=== PATIENT | female | born 1970 | race African-American/Black ===

== ENCOUNTER → 2016-08-25 | Outpatient (CLI) | payer MEDICARE ==
--- NOTE | 2016-08-25 20:47 | CT ---
EXAMINATION TYPE: CT abdomen pelvis w con DATE OF EXAM: 08/25/2016 COMPARISON: NONE HISTORY: Ventral hernia x [address] DLP: 721.80 mGycm Automated exposure control for dose reduction was used. TECHNIQUE: Helical acquisition of images was performed from the lung bases through the pelvis. CONTRAST: Performed with Oral Contrast and with IV Contrast, patient injected with 100 mL of Omnipaque 300. FINDINGS: Lung bases are clear. There is no pleural effusion. There are small cysts in the left and right lobe of the liver that measure 1.5 cm. Bile ducts are not dilated. Spleen appears normal. There is no panc reatic mass. Gallbladder appears normal. There is no adrenal mass. Kidneys show satisfactory contrast opacification. There is no hydronephrosi s. There is no retroperitoneal adenopathy. There is lobulated fluid density at the umbilicus with a few vessels. The largest measures 3 cm. There is a large midline pelvic mass which shows heterogeneous apparent enhancement. This measures 17 x 9 cm x 15 cm. This appears to relate to a large exophytic fibroid on the uterine fundus. The bladd er distends smoothly. I see no intestinal wall thickening. There are no dilated loops. There are multiple varices in the pe lvis. I do not see any definite varices at the gastroesophageal junction. I see no bony destructive p rocess. IMPRESSION: SMALL HEPATIC CYSTS. SMALL UMBILICAL VARICES. THERE ARE MULTIPLE SUBCUTANEOUS PERIUMBILICAL CYSTIC FLUID COLLECTIONS THAT COULD BE DUE TO POST SURGICAL SEROMA OR HEMATOMA IN THIS PATIENT WITH VENTRAL HERNIA SURGERY 6 MONTHS AGO. VERY LARGE MIDLINE PELVIC MASS COULD RELATE TO LARGE UTERINE FIBROID. THE POSSIBILITY OF A OVARIAN SA RCOMA OR OVARIAN TUMOR CANNOT BE EXCLUDED. MULTIPLE PELVIC VARICES.
== END | disposition home or self-care (01) ==
LOC: RADCTMAIN 18:15
PROVIDERS: ATTEND Surgery
DX: I86.2 Pelvic varices (principal); K76.89 Other specified diseases of liver; K43.9 Ventral hernia without obstruction or gangrene
CPT/HCPCS: 74177; Q9967

== ENCOUNTER → 2016-11-07 | Outpatient (CLI) | payer MEDICARE ==
--- NOTE | 2016-11-08 10:55 | MM ---
Reason for exam: screening (asymptomatic). Last mammogram was performed 1 year and 3 months ago. History: Family history of breast cancer in mother at age 40. Physical Findings: A clinical breast exam by your physician is recommended on an annual basis and results should be correlated with mammographic findings. MG 3D Screening Mammo W/Cad Bilateral CC and MLO view(s) were taken. Prior study comparison: August 20, 2015, bilateral MG 3d screening mammo w/cad. July 31, 2014, bilateral MG screening mammo w CAD. The breast tissue is heterogeneously dense. This may lower the sensitivity of mammography. No significant changes when compared with prior studies. ASSESSMENT: Benign, BI-RAD 2 RECOMMENDATION: Routine screening mammogram of both breasts in 1 year.
== END | disposition home or self-care (01) ==
LOC: RADMAMWWP 15:13
PROVIDERS: ATTEND Family Medicine
DX: Z12.31 Encounter for screening mammogram for malignant neoplasm of breast (principal)
CPT/HCPCS: 77063; G0202

== ENCOUNTER 2016-12-29 16:02 | Emergency (ER) | payer MEDICARE ==
[2016-12-29] MEDS ORDERED: HYDROmorphone 1 MG/ML 1 ML SYRINGE IM STA (16:44)
--- NOTE | 2016-12-29 16:45 | ED ---
Recheck HPI - General Chief Complaint: Recheck/Abnormal Lab/Rx Stated Complaint: pain all over/abdominal pain Time Seen by Provider: 12/29/16 16:37 Source: patient, RN notes reviewed Mode of arrival: wheelchair Limitations: no limitations - History of Present Illness Initial Comments: This a 46-year-old female presents emergency Department chief complaint of chronic pain. Patient states she has pain all over and states that the change in weather has made symptoms worse. Patient states she primary has pain from rheumatoid arthritis of her nausea. Patient also pain from her fibroids and hernia. She states that her abdominal issues or not the complaints. States she has severe joint pain diffusely. Patient states is very consistent with her rheumatoid arthritis. 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 Patient is requesting pain medication at this time. Patient states her [place] was not helping. - Related Data Home Medications Medication Instructions Recorded Confirmed Ibuprofen/Diphenhydramine HCl 2 cap PO HS 07/31/14 12/29/16 [Advil Pm Liqui-Gels] Etanercept [Enbrel] 50 mg SQ Q7DAYS 05/04/15 12/29/16 HYDROcodone/APAP 10-325MG [[place] 1 tab PO Q6H PRN 12/29/16 12/29/16 10] predniSONE 20 mg PO BID 12/29/16 12/29/16 Allergies Allergy/AdvReac Type Severity Reaction Status Date / Time Penicillins Allergy Rash/Hives/ Verified 12/29/16 16:23 Dyspnea tramadol Allergy Unknown Verified 12/29/16 16:23 Review of Systems ROS Statement: Those systems with pertinent positive or pertinent negative responses have been documented in the HPI. ROS Other: All systems not noted in ROS Statement are negative. 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 2014 History of Any Multi-Drug Resistant Organisms: None Reported Additional Past Surgical History / Comment(s): COLONOSCOPY, EGD Past Anesthesia/Blood Transfusion Reactions: No Reported Reaction Past Psychological History: Depression Smoking Status: Never smoker Past Alcohol Use History: None Reported Past Drug Use History: None Reported General Exam Limitations: no limitations General appearance: alert, in no apparent distress Head exam: Present: atraumatic, normocephalic, normal inspection Neck exam: Present: normal inspection. Absent: tenderness, meningismus, lymphadenopathy Respiratory exam: Present: normal lung sounds bilaterally. Absent: respiratory distress, wheezes, rales, rhonchi, stridor Cardiovascular Exam: Present: regular rate, normal rhythm, normal heart sounds. Absent: systolic murmur, diastolic murmur, rubs, gallop, clicks GI/Abdominal exam: Present: soft, normal bowel sounds, hernia. Absent: distended, tenderness, guarding, rebound, rigid Extremities exam: Absent: normal inspection (swelling of the joints of the hand , knee region) Back exam: Absent: CVA tenderness (R), CVA tenderness (L) Neurological exam: Present: alert, oriented X3, CN II-XII intact Skin exam: Present: warm, dry, intact, normal color. Absent: rash Course Vital Signs 12/29/16 16:09 Temperature 98.1 F Pulse Rate 85 Respiratory 18 Rate Blood Pressure 115/62 O2 Sat by Pulse 98 Oximetry Medical Decision Making - Medical Decision Making 46-year-old female presented for pain. Patient we given a pain shot at this time advised to follow-up return parameters were discussed. Patient's issues are chronic in nature. Disposition Clinical Impression: Chronic pain Disposition: HOME SELF-CARE Condition: Stable Instructions: Chronic Pain (ED) Additional Instructions: Please return to the Emergency Department if symptoms worsen or any other concerns. Referrals: None,Stated [Primary Care Provider] - 1-2 days Time of Disposition: 16:45
[2016-12-29] MEDS ORDERED: HYDROcodone/APAP 10-325MG 1 EACH TAB PO ONE (17:04)
[2016-12-29] MEDS ORDERED: KETOROLAC 30 MG/ML 1 ML VIAL IM STA (17:05)
[2016-12-29 17:23] VITALS: BP 125/67; PULSE 80; RESP 20; TEMP 98
== END 2016-12-29 17:23 | disposition home or self-care (01) ==
LOC: EC 16:02
DX: G89.29 Other chronic pain (principal); R11.0 Nausea; M79.7 Fibromyalgia; M06.9 Rheumatoid arthritis, unspecified; F32.9 Major depressive disorder, single episode, unspecified; Z79.1 Long term (current) use of non-steroidal anti-inflammatories (NSAID); Z79.52 Long term (current) use of systemic steroids; Z79.899 Other long term (current) drug therapy; Z88.0 Allergy status to penicillin; Z88.6 Allergy status to analgesic agent; Z53.20 Procedure and treatment not carried out because of patient's decision for unspecified reasons
CPT/HCPCS: 99283 ×2; 96372 ×2; J1885

== ENCOUNTER 2018-03-07 11:58 | Emergency (ER) | payer MEDICARE ==
[2018-03-07] MEDS ORDERED: SODIUM CHLORIDE 0.9% 1,000 ML IV STA (12:26)
--- NOTE | 2018-03-07 12:26 | ED ---
General Adult HPI - General Chief complaint: Abdominal Pain Stated complaint: abdominal pain Source: patient, RN notes reviewed, old records reviewed Mode of arrival: ambulatory Limitations: no limitations - History of Present Illness Initial comments: 47-year-old female patient with past medical history including fibromyalgia, rheumatoid arthritis, hysterectomy and hernia repair with Subsequent wound infection in April, pulmonary embolism in 2007 not currently on thinners presents to ED with right lower quadrant abdominal pain. Patient states that she has baseline abdominal pain however this pain is worse, described as a stabbing pain in her right lower quadrant. Patient states this pain has been ongoing for approximately 3 days. Patient denies nausea vomiting diarrhea, chest pain, shortness of breath. Systemic: Pt denies fatigue, myalgia, fever/chills, rash. Pt denies weakness, night sweats, weight loss. Neuro: Pt denies headache, visual disturbances, syncope or pre-syncope. HEENT: Pt denies ocular discharge or irritation, otalgia, rhinorrhea, pharyngitis or notable lymphadenopathy. Cardiopulmonary: Pt denies chest pain, SOB, heart palpitations, dyspnea on exertion. Abdominal/GI: Pt denies n/v/d. : Pt denies dysuria, burning w/ urination, frequency/urgency. Denies new onset urinary or bowel incontinence. MSK: Pt denies myalgia, loss of strength or function in extremities. Neuro: Pt denies new onset weakness, paresthesias. - Related Data Home Medications Medication Instructions Recorded Confirmed Ibuprofen/Diphenhydramine HCl 2 cap PO DAILY PRN 07/31/14 03/07/18 [Advil Pm Liqui-Gels] Etanercept [Enbrel] 50 mg IM WE 05/04/15 03/07/18 predniSONE 20 mg PO BID 12/29/16 03/07/18 Cyclobenzaprine [Flexeril] 10 mg PO BID PRN 03/07/18 03/07/18 Previous Rx's Medication Instructions Recorded HYDROcodone/APAP 10-325MG [[place] 1 tab PO Q6H PRN #10 tab 12/29/16 10-325] Allergies Allergy/AdvReac Type Severity Reaction Status Date / Time Penicillins Allergy Rash/Hives/ Verified 03/07/18 13:32 Dyspnea tramadol Allergy Unknown Verified 03/07/18 13:32 Review of Systems ROS Statement: Those systems with pertinent positive or pertinent negative responses have been documented in the HPI. ROS Other: All systems not noted in ROS Statement are negative. 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 2014 History of Any Multi-Drug Resistant Organisms: None Reported Additional Past Surgical History / Comment(s): COLONOSCOPY, EGD Past Anesthesia/Blood Transfusion Reactions: No Reported Reaction Past Psychological History: Depression Smoking Status: Never smoker Past Alcohol Use History: None Reported Past Drug Use History: None Reported General Exam - General Exam Comments Initial Comments: Constitutional: NAD, AOX3, Pt has pleasant affect. HEENT: NC/AT, trachea midline, neck supple, no lymphadenopathy. Posterior pharynx non erythematous, without exudates. External ears appear normal, without discharge. Mucous membranes moist. Eyes PERRLA, EOM intact. There is no scleral icterus. No pallor noted. Cardiopulmonary: RRR, no murmurs, rubs or gallops, no JVD noted. Lungs CTAB in anterior and posterior narvaez. No peripheral edema. Abdominal exam: Abdomen soft and non-distended. Abdomen tender in right lower quadrant, generalized abdominal tenderness. No guarding or rigidity. Obturator sign negative. Bowel sounds active in LLQ. No hepatosplenomegaly. No ecchymosis Neuro: CN II-XII grossly intact. No nuchal rigidity. MSK: Right posterior calf tenderness, no left posterior calf tenderness homans sign positive bilaterally. Posterior tibialis and radial pulse +2 bilaterally. Sensation intact in upper and lower extremities. Full active ROM in upper and lower extremities, 5/5 stregnth. Limitations: no limitations Course Vital Signs 03/07/18 03/07/18 03/07/18 12:07 13:05 14:00 Temperature 98.1 F Pulse Rate 98 81 86 Respiratory 16 18 16 Rate Blood Pressure 133/82 150/101 143/91 O2 Sat by Pulse 98 100 99 Oximetry Medical Decision Making - Medical Decision Making 39-year-old female patient past medical history including fibromyalgia, rheumatoid arthritis, hysterectomy and hernia repair, pulmonary embolus in 2007 presents to ED with right lower quadrant abdominal pain. Patient has history of baseline abdominal pain since her surgery however says that this acute exacerbation right lower quadrant abdominal pain is worse. Patient describes the pain as a stabbing pain. Patient states this morning ongoing for approximately 3 days. Patient denies other complaints. Physical exam displayed some right posterior calf tenderness, positive Homans sign. Physical exam displayed a generalized tender abdomen, right lower quadrant abdominal pain. No guarding or rigidity. Obturator sign negative. Physical exam didn't display any other acute pathology. Laboratory investigations including CBC and CMP are non-impressive. Lipase was within normal limits. Troponin was negative. UA was not impressive. Initial and repeat EKG not concerning for acute ischemia, no morpholic change between. CT abdomen and pelvis did not display acute pathology. Venous duplex ultrasound did not display any findings suspicious for DVT bilaterally. Patient to be discharged and continue her at home pain regimen and continue to monitor symptoms. Patient to follow with primary care provider in 1-2 days. Patient to return to ED if new signs or symptoms develop. Case discussed with Dr. Ibanez. Pt not driving home. - Lab Data Result diagrams: 03/07/18 12:50 03/07/18 12:50 Lab Results 03/07/18 03/07/18 03/07/18 Range/Units 12:50 12:50 12:50 WBC 8.1 (3.8-10.6) k/uL RBC 4.69 (3.80-5.40) m/uL Hgb 13.1 (11.4-16.0) gm/dL Hct 41.7 (34.0-46.0) % MCV 89.0 (80.0-100.0) fL MCH 27.9 (25.0-35.0) pg MCHC 31.4 (31.0-37.0) g/dL RDW 14.6 (11.5-15.5) % Plt Count 219 (150-450) k/uL Neutrophils % 60 % Lymphocytes % 26 % Monocytes % 6 % Eosinophils % 6 % Basophils % 0 % Neutrophils # 4.9 (1.3-7.7) k/uL Lymphocytes # 2.1 (1.0-4.8) k/uL Monocytes # 0.5 (0-1.0) k/uL Eosinophils # 0.5 (0-0.7) k/uL Basophils # 0.0 (0-0.2) k/uL Sodium 142 (137-145) mmol/L Potassium 3.8 (3.5-5.1) mmol/L Chloride 109 H (98-107) mmol/L Carbon Dioxide 28 (22-30) mmol/L Anion Gap 5 mmol/L BUN 12 (7-17) mg/dL Creatinine 0.90 (0.52-1.04) mg/dL Est GFR (CKD-EPI)AfAm 88 (>60 ml/min/1.73 sqM) Est GFR (CKD-EPI)NonAf 76 (>60 ml/min/1.73 sqM) Glucose 95 (74-99) mg/dL Plasma Lactic Acid Ger[place] 1.7 (0.7-2.0) mmol/L Calcium 9.9 (8.4-10.2) mg/dL Total Bilirubin 0.4 (0.2-1.3) mg/dL AST 16 (14-36) U/L ALT 25 (9-52) U/L Alkaline Phosphatase 81 (38-126) U/L Troponin I (0.000-0.034) ng/mL Total Protein 6.6 (6.3-8.2) g/dL Albumin 3.5 (3.5-5.0) g/dL Lipase 58 (23-300) U/L Urine Color Urine Appearance (Clear) Urine pH (5.0-8.0) Ur Specific [place] (1.001-1.035) Urine Protein (Negative) Urine Glucose (UA) (Negative) Urine Ketones (Negative) Urine Blood (Negative) Urine Nitrite (Negative) Urine Bilirubin (Negative) Urine Urobilinogen (<2.0) mg/dL Ur Leukocyte Esterase (Negative) Urine WBC (0-5) /hpf Ur Squamous Epith Cells (0-4) /hpf Urine Bacteria (None) /hpf Urine Mucus (None) /hpf 03/07/18 03/07/18 Range/Units 12:50 14:50 WBC (3.8-10.6) k/uL RBC (3.80-5.40) m/uL Hgb (11.4-16.0) gm/dL Hct (34.0-46.0) % MCV (80.0-100.0) fL MCH (25.0-35.0) pg MCHC (31.0-37.0) g/dL RDW (11.5-15.5) % Plt Count (150-450) k/uL Neutrophils % % Lymphocytes % % Monocytes % % Eosinophils % % Basophils % % Neutrophils # (1.3-7.7) k/uL Lymphocytes # (1.0-4.8) k/uL Monocytes # (0-1.0) k/uL Eosinophils # (0-0.7) k/uL Basophils # (0-0.2) k/uL Sodium (137-145) mmol/L Potassium (3.5-5.1) mmol/L Chloride (98-107) mmol/L Carbon Dioxide (22-30) mmol/L Anion Gap mmol/L BUN (7-17) mg/dL Creatinine (0.52-1.04) mg/dL Est GFR (CKD-EPI)AfAm (>60 ml/min/1.73 sqM) Est GFR (CKD-EPI)NonAf (>60 ml/min/1.73 sqM) Glucose (74-99) mg/dL Plasma Lactic Acid Ger[place] (0.7-2.0) mmol/L Calcium (8.4-10.2) mg/dL Total Bilirubin (0.2-1.3) mg/dL AST (14-36) U/L ALT (9-52) U/L Alkaline Phosphatase (38-126) U/L Troponin I <0.012 (0.000-0.034) ng/mL Total Protein (6.3-8.2) g/dL Albumin (3.5-5.0) g/dL Lipase (23-300) U/L Urine Color Light Yellow Urine Appearance Clear (Clear) Urine pH 6.0 (5.0-8.0) Ur Specific [place] 1.011 (1.001-1.035) Urine Protein Negative (Negative) Urine Glucose (UA) Negative (Negative) Urine Ketones Negative (Negative) Urine Blood Negative (Negative) Urine Nitrite Negative (Negative) Urine Bilirubin Negative (Negative) Urine Urobilinogen <2.0 (<2.0) mg/dL Ur Leukocyte Esterase Moderate H (Negative) Urine WBC 2 (0-5) /hpf Ur Squamous Epith Cells <1 (0-4) /hpf Urine Bacteria Rare H (None) /hpf Urine Mucus Rare H (None) /hpf - EKG Data -: EKG Interpreted by Me (and dr ibanez ) EKG Comments: 1) Ventricular rate 93, patient follow 112, QRS 84, QT/QTC 3:30/410. Normal sinus rhythm, no concerns for acute ischemia 2) Ventricular rate 86, WA interval 124, QRS 78, QTC/QTC 350/14. Normal sinus rhythm. No specific ST and T wave abnormality. No concern for acute ischemia. Disposition Clinical Impression: Chronic abdominal pain Disposition: HOME SELF-CARE Condition: Good Instructions: Abdominal Pain (ED) Additional Instructions: Patient to adhere to previously discussed treatment plan and will take medication(s) as directed. Patient to follow up with PCP in 1-2 days. Patient to return to ED if symptoms do not improve. Is patient prescribed a controlled substance at d/c from ED?: No Referrals: Sebastian Mcgee MD [Primary Care Provider] - 1-2 days Time of Disposition: 16:36
[2018-03-07] MEDS ORDERED: HYDROcodone/APAP 5-325MG 1 EACH TAB PO STA (12:27)
[2018-03-07 13:55] LABS: Basophils % (A) 0 %; Eosinophils # (A) 0.5 k/uL (0-0.7); Eosinophils % (A) 6 %; HCT 41.7 % (34.0-46.0); HGB 13.1 gm/dL (11.4-16.0); Lymphocytes # (A) 2.1 k/uL (1.0-4.8); Lymphocytes % (A) 26 %; MCH 27.9 pg (25.0-35.0); MCHC 31.4 g/dL (31.0-37.0); Mean Platelet Volume 8.1; Monocytes # (A) 0.5 k/uL (0-1.0); Monocytes % (A) 6 %; Neutrophils # (A) 4.9 k/uL (1.3-7.7); Neutrophils % (A) 60 %; Platelet Count 219 k/uL (150-450); RBC 4.69 m/uL (3.80-5.40); RDW 14.6 % (11.5-15.5); WBC 8.1 k/uL (3.8-10.6)
[2018-03-07 14:16] LABS: Albumin 3.5 g/dL (3.5-5.0); Calcium 9.9 mg/dL (8.4-10.2); Potassium 3.8 mmol/L (3.5-5.1); Total Bilirubin 0.4 mg/dL (0.2-1.3); Total Protein 6.6 g/dL (6.3-8.2)
--- NOTE | 2018-03-07 14:46 | US ---
EXAMINATION TYPE: US venous doppler duplex LE BI DATE OF EXAM: 03/07/2018 2:39 PM COMPARISON: 07/10/2013 CLINICAL HISTORY: Pain. bilat leg pain and swelling that comes and goes, no h/o dvt SIDE PERFORMED: Bilateral TECHNIQUE: The lower extremity deep venous system is examined utilizing real time linear array sonog lisa with graded compression, doppler sonography and color-flow sonography. VESSELS IMAGED: External Iliac Vein (EIV) Common Femoral Vein Deep Femoral Vein Greater Saphenous Vein * Femoral Vein Popliteal Vein Small Saphenous Vein * Proximal Calf Veins (* superficial vessels) Right Leg: Appears negative for DVT Left Leg: Appears negative for DVT IMPRESSION: 1. No diagnostic evidence of DVT as visualized.
[2018-03-07 15:19] LABS: Appearance,Urine Clear (Clear); Bacteria,Urine Rare /hpf; Bilirubin,Urine Negative (Negative); Blood,Urine Negative (Negative); Color,Urine Light Yellow; Glucose,Urine (UA) Negative (Negative); Ketones,Urine Negative (Negative); Leukocyte Esterase,Urine Moderate (Negative); Mucus,Urine Rare /hpf; Nitrite,Urine Negative (Negative); Protein,Urine Negative (Negative); Specific Gravity,Urine 1.011 (1.001-1.035); Squamous Epithelial Cell,Urine <1 /hpf (0-4); Urobilinogen,Urine <2.0 mg/dL (<2.0)
--- NOTE | 2018-03-07 15:44 | CT ---
EXAMINATION TYPE: CT abdomen pelvis w con DATE OF EXAM: 03/07/2018 HISTORY: Pain at hysterectomy incision. surgery done in Apr 2017 CT DLP: 846.9mGycm Automated Exposure Control for Dose Reduction was Utilized. CONTRAST: CT scan of the abdomen and pelvis is performed without oral but with IV Contrast, patient injected wi th 100 mL of Isovue 300. COMPARISON: CT abdomen and pelvis August 25, 2016 FINDINGS: LUNG BASES: No significant abnormality is appreciated. LIVER/GB: There are nonspecific scattered hypodense lesions throughout the liver measuring under 2 cm in size without significant interval change. Suspect thin-walled cysts PANCREAS: No significant abnormality is seen. SPLEEN: No significant abnormality is seen. ADRENALS: No significant abnormality is seen. KIDNEYS: No significant abnormality is seen. BOWEL: There are diverticula throughout the bowel. No convincing CT evidence for acute diverticulitis . No suspicious small or large bowel dilatation. UTERUS/ADNEXA: Uterus is surgically absent. Trace free fluid in pelvis noted axial image 61. LYMPH NODES: No greater than 1cm abdominal or pelvic lymph nodes are appreciated. OSSEOUS STRUCTURES: No significant abnormality is seen. OTHER: There is vertical scar from the umbilicus extending inferiorly. There is slight bulging of the anterior abdominal contents without rectus break or hernia defect clearly seen. Trace curvilinear fl uid just below scar is felt present near axial image 45. IMPRESSION: No significant acute finding is seen to account for patient's clinical symptoms.
[2018-03-07 17:04] VITALS: BP 139/89; PULSE 87; RESP 20; TEMP 98.3
== END 2018-03-07 17:00 | disposition home or self-care (01) ==
LOC: EC 11:58
DX: R10.31 Right lower quadrant pain (principal); G89.29 Other chronic pain; M79.7 Fibromyalgia; M06.9 Rheumatoid arthritis, unspecified; Z79.52 Long term (current) use of systemic steroids; Z79.899 Other long term (current) drug therapy; Z88.0 Allergy status to penicillin; Z88.5 Allergy status to narcotic agent
CPT/HCPCS: 36415; 93005; 80053; 83605; 83690; 84484; 85025; 81001; 93970; 74177; 99285; 96360; Q9967

== ENCOUNTER 2018-04-10 16:07 | Emergency (ER) | payer MEDICARE ==
[2018-04-10 16:12] VITALS: BP 161/88; PULSE 103; RESP 18; TEMP 98.1
--- NOTE | 2018-04-10 16:54 | ED ---
Recheck HPI - General Chief Complaint: Recheck/Abnormal Lab/Rx Stated Complaint: Tremors Time Seen by Provider: 04/10/18 16:27 Source: patient, RN notes reviewed, old records reviewed Mode of arrival: ambulatory Limitations: no limitations - History of Present Illness Initial Comments: This is a 48-year-old female the ER for evaluation. Patient resents today for medication refill secondary to having which refers to me on chronic pain medication. Patient is currently attempting to get in with pain control currently. 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 MD Complaint: medication refill request -: week(s) Returns Today for: request for prescription Symptoms Since Prior Visit: no new symptoms Context: ran out of medication Associated Symptoms: none - Related Data Home Medications Medication Instructions Recorded Confirmed Ibuprofen/Diphenhydramine HCl 2 cap PO DAILY PRN 07/31/14 04/10/18 [Advil Pm Liqui-Gels] Etanercept [Enbrel] 50 mg IM WE 05/04/15 04/10/18 predniSONE 20 mg PO BID 12/29/16 04/10/18 Previous Rx's Medication Instructions Recorded Acetaminophen with Codeine 1 tab PO Q4H PRN #20 tab 04/10/18 [Tylenol w/codeine #3] HYDROcodone/APAP 5-325MG [[place] 1 tab PO Q6HR PRN #12 tab 04/10/18 5-325] Allergies Allergy/AdvReac Type Severity Reaction Status Date / Time Penicillins Allergy Rash/Hives/ Verified 04/10/18 16:38 Dyspnea tramadol Allergy Unknown Verified 04/10/18 16:38 Review of Systems ROS Statement: Those systems with pertinent positive or pertinent negative responses have been documented in the HPI. ROS Other: All systems not noted in ROS Statement are negative. 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 2014, shingles 03-19-18 History of Any Multi-Drug Resistant Organisms: None Reported Past Surgical History: Hysterectomy Additional Past Surgical History / Comment(s): COLONOSCOPY, EGD Past Anesthesia/Blood Transfusion Reactions: No Reported Reaction Past Psychological History: Depression Smoking Status: Never smoker Past Alcohol Use History: None Reported Past Drug Use History: None Reported General Exam Limitations: no limitations General appearance: alert, in no apparent distress Head exam: Present: atraumatic, normocephalic, normal inspection Eye exam: Present: normal appearance, PERRL, EOMI. Absent: scleral icterus, conjunctival injection, periorbital swelling ENT exam: Present: normal exam, mucous membranes moist Neck exam: Present: normal inspection. Absent: tenderness, meningismus, lymphadenopathy Respiratory exam: Present: normal lung sounds bilaterally. Absent: respiratory distress, wheezes, rales, rhonchi, stridor Cardiovascular Exam: Present: regular rate, normal rhythm, normal heart sounds. Absent: systolic murmur, diastolic murmur, rubs, gallop, clicks GI/Abdominal exam: Present: soft, normal bowel sounds. Absent: distended, tenderness, guarding, rebound, rigid Extremities exam: Present: normal inspection, full ROM, normal capillary refill. Absent: tenderness, pedal edema, joint swelling, calf tenderness Back exam: Present: normal inspection Neurological exam: Present: alert, oriented X3, CN II-XII intact Psychiatric exam: Present: normal affect, normal mood Skin exam: Present: warm, dry, intact, normal color. Absent: rash Course Vital Signs 04/10/18 16:09 Temperature 98.1 F Pulse Rate 103 H Respiratory 18 Rate Blood Pressure 161/88 O2 Sat by Pulse 98 Oximetry Medical Decision Making - Medical Decision Making 48 female the ER for evasive medication refill, patient will be refilled medication for 3 days. Patient to be discharged home Disposition Clinical Impression: Medicine refill, Chronic pain Disposition: HOME SELF-CARE Condition: Good Instructions (If sedation given, give patient instructions): Medicine Refill ( ED) Prescriptions: Acetaminophen with Codeine [Tylenol w/codeine #3] 1 tab PO Q4H PRN #20 tab PRN Reason: Pain HYDROcodone/APAP 5-325MG [[place] 5-325] 1 tab PO Q6HR PRN #12 tab PRN Reason: Pain Is patient prescribed a controlled substance at d/c from ED?: Yes When asked, does pt state using other controlled substances?: No If prescribed controlled substance>3 days was MAPS reviewed?: Prescribed <3 Days If opioid is for acute pain is fill amount 7 days or less?: Yes If Rx opioid, was Start Talking consent form obtained?: Yes Referrals: None,Stated [Primary Care Provider] - 1-2 days
[2018-04-10] MEDS ORDERED: ONDANSETRON ODT 4 MG TAB PO STA (17:01)
[2018-04-10] MEDS ORDERED: Acetaminophen-Codeine 300-30mg TAB PO STA (17:01)
[2018-04-10] MEDS ORDERED: ACET/COD 300 MG/30 MG STARTER PACK 6 TAB BTL PO STA (17:01)
[2018-04-10] MEDS ORDERED: DIAZEPAM 5 MG TAB PO STA (17:02)
[2018-04-10] MEDS ORDERED: cloNIDine 0.3 MG/24HR PATCH TRANSDERM SCH (17:30)
[2018-04-10] MEDS ORDERED: HYDROcodone/APAP 5-325MG 1 EACH TAB PO STA (17:31)
== END 2018-04-10 17:53 | disposition home or self-care (01) ==
LOC: EC 16:07
DX: Z76.0 Encounter for issue of repeat prescription (principal); G89.29 Other chronic pain; R25.1 Tremor, unspecified; M06.9 Rheumatoid arthritis, unspecified; Z79.52 Long term (current) use of systemic steroids; Z79.899 Other long term (current) drug therapy; Z88.0 Allergy status to penicillin; Z88.5 Allergy status to narcotic agent; Z53.20 Procedure and treatment not carried out because of patient's decision for unspecified reasons
CPT/HCPCS: 99284

== ENCOUNTER → 2018-05-09 | Outpatient (CLI) | payer MEDICARE ==
--- NOTE | 2018-05-10 12:02 | MM ---
Reason for exam: screening (asymptomatic). Last mammogram was performed 1 year and 6 months ago. History: Family history of breast cancer in mother at age 40. Physical Findings: A clinical breast exam by your physician is recommended on an annual basis and results should be correlated with mammographic findings. MG 3D Screening Mammo W/Cad Bilateral CC and MLO view(s) were taken. Prior study comparison: November 07, 2016, bilateral MG 3d screening mammo w/cad. August 20, 2015, bilateral MG 3d screening mammo w/cad. The breast tissue is heterogeneously dense. This may lower the sensitivity of mammography. There is no discrete abnormality. No significant changes when compared with prior studies. ASSESSMENT: Negative, BI-RAD 1 RECOMMENDATION: Routine screening mammogram of both breasts in 1 year.
== END | disposition home or self-care (01) ==
LOC: RADMAMWWP 12:55
PROVIDERS: ATTEND Family Medicine
DX: Z12.31 Encounter for screening mammogram for malignant neoplasm of breast (principal)
CPT/HCPCS: 77063; 77067

== ENCOUNTER 2018-07-28 16:48 | Emergency (ER) | payer MEDICARE ==
[2018-07-28 17:00] VITALS: RESP 18; TEMP 98.3
[2018-07-28] MEDS ORDERED: MORPHINE SULFATE 2 MG/ML SYRINGE IVP STA (17:10)
[2018-07-28] MEDS ORDERED: ASPIRIN 81 MG PO STA (17:10)
[2018-07-28] MEDS ORDERED: SODIUM CHLORIDE 0.9% 1,000 ML IV STA (17:10)
--- NOTE | 2018-07-28 17:15 | ED ---
General Adult HPI - General Chief complaint: Chest Pain Stated complaint: Chest pain Time Seen by Provider: 07/28/18 17:03 Source: patient, RN notes reviewed, old records reviewed Mode of arrival: wheelchair Limitations: no limitations - History of Present Illness Initial comments: 48-year-old female patient past medical history of rheumatoid arthritis, prior pulmonary embolism, status post hysterectomy presents to ED approximately 6 hours of waxing and waning stabbing chest pain in her left breast region. Patient states that this pain is not associated with rest or with exertion. Describes it as a stabbing pain which lasts between 15 seconds to 2 minutes. Patient is not currently on any blood thinners. Patient also complains of mild waxing and waning arthralgias in her knees and hips bilaterally which she states is baseline for her rheumatologic disorder. Patient denies any fevers chills, nausea vomiting diarrhea, abdominal pain. Systemic: Pt denies fatigue, myalgia, fever/chills, rash. Pt denies weakness, night sweats, weight loss. Neuro: Pt denies headache, visual disturbances, syncope or pre-syncope. HEENT: Pt denies ocular discharge or irritation, otalgia, rhinorrhea, pharyngitis or notable lymphadenopathy. Cardiopulmonary: Pt denies heart palpitations, dyspnea on exertion. Abdominal/GI: Pt denies abdominal pain, n/v/d. : Pt denies dysuria, burning w/ urination, frequency/urgency. Denies new onset urinary or bowel incontinence. MSK: Pt denies myalgia, loss of strength or function in extremities. Neuro: Pt denies new onset weakness, paresthesias. - Related Data Home Medications Medication Instructions Recorded Confirmed Ibuprofen/Diphenhydramine HCl 2 cap PO HS PRN 07/31/14 07/28/18 [Advil Pm Liqui-Gels] Etanercept [Enbrel] 50 mg IM WE 05/04/15 07/28/18 predniSONE 20 mg PO BID 12/29/16 07/28/18 Previous Rx's Medication Instructions Recorded predniSONE 50 mg PO DAILY #5 tab 07/28/18 Allergies Allergy/AdvReac Type Severity Reaction Status Date / Time Penicillins Allergy Anaphylaxis Verified 07/28/18 17:16 tramadol Allergy Unknown Verified 07/28/18 17:16 Review of Systems ROS Statement: Those systems with pertinent positive or pertinent negative responses have been documented in the HPI. ROS Other: All systems not noted in ROS Statement are negative. 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 HEENT: NC/AT, trachea midline, neck supple, no lymphadenopathy. Posterior pharynx non erythematous, without exudates. External ears appear normal, without discharge. Mucous membranes moist. Eyes PERRLA, EOM intact. There is no scleral icterus. No pallor noted. Cardiopulmonary: RRR, no murmurs, rubs or gallops, no JVD noted. Lungs CTAB in anterior and posterior narvaez. No peripheral edema. Abdominal exam: Abdomen soft and non-distended. Abdomen non-tender to palpation in all 4 quadrants. Bowel sounds active in LLQ. No hepatosplenomegaly. No ecchymosis Neuro: CN II-XII grossly intact. No nuchal rigidity. MSK: No posterior calf tenderness bilaterally, homans sign negative bilaterally. Posterior tibialis and radial pulse +2 bilaterally. Sensation intact in upper and lower extremities. Full active ROM in upper and lower extremities, 5/5 stregnth. Limitations: no limitations Course Vital Signs 07/28/18 07/28/18 16:57 22:40 Temperature 98.3 F Pulse Rate 98 90 Respiratory 18 18 Rate Blood Pressure 146/88 142/83 O2 Sat by Pulse 98 100 Oximetry Medical Decision Making - Medical Decision Making 48-year-old female patient past medical history of rheumatoid arthritis, prior pulmonary embolism, status post hysterectomy presents to ED approximately 6 hours of waxing and waning stabbing chest pain in her left breast region. Patient states that this pain is not associated with rest or with exertion. Describes it as a stabbing pain which lasts between 15 seconds to 2 minutes. Patient is not currently on any blood thinners. Patient also complains of mild waxing and waning arthralgias in her knees and hips bilaterally which she states is baseline for her rheumatologic disorder. Patient denies any fevers chills, nausea vomiting diarrhea, abdominal pain. Patient vital signs stable, afebrile. Physical exam did not display acute pathology. Laboratory investigations are non-impressive CBC. CMP non-impressive. D-dimer mildly elevated at 1.29. Troponin negative 2. BNP 61. CT chest angiography did not display any pulmonary embolism. Chest x-ray did not display any acute process. EKG not concerning for acute pathology, did not display significant change from prior EKG. At patient request patient prescribed 5 days of prednisone for rheumatoid arthritis. Patient to follow up with primary care provider in 1-2 days. Patient return to ER if condition worsens. Case discussed with Dr. Kelly. - Lab Data Result diagrams: 07/28/18 17:15 07/28/18 17:15 Lab Results 07/28/18 07/28/18 07/28/18 Range/Units 17:15 17:15 17:15 WBC 6.3 (3.8-10.6) k/uL RBC 4.90 (3.80-5.40) m/uL Hgb 14.0 (11.4-16.0) gm/dL Hct 45.3 (34.0-46.0) % MCV 92.5 (80.0-100.0) fL MCH 28.5 (25.0-35.0) pg MCHC 30.8 L (31.0-37.0) g/dL RDW 13.9 (11.5-15.5) % Plt Count 180 (150-450) k/uL Neutrophils % 62 % Lymphocytes % 25 % Monocytes % 6 % Eosinophils % 4 % Basophils % 0 % Neutrophils # 3.9 (1.3-7.7) k/uL Lymphocytes # 1.6 (1.0-4.8) k/uL Monocytes # 0.4 (0-1.0) k/uL Eosinophils # 0.3 (0-0.7) k/uL Basophils # 0.0 (0-0.2) k/uL PT 9.8 (9.0-12.0) sec INR 0.9 (<1.2) APTT 23.4 (22.0-30.0) sec D-Dimer 1.29 H (<0.60) mg/L FEU Sodium 141 (137-145) mmol/L Potassium 4.5 (3.5-5.1) mmol/L Chloride 109 H (98-107) mmol/L Carbon Dioxide 28 (22-30) mmol/L Anion Gap 4 mmol/L BUN 13 (7-17) mg/dL Creatinine 0.82 (0.52-1.04) mg/dL Est GFR (CKD-EPI)AfAm >90 (>60 ml/min/1.73 sqM) Est GFR (CKD-EPI)NonAf 84 (>60 ml/min/1.73 sqM) Glucose 108 H (74-99) mg/dL Calcium 10.3 H (8.4-10.2) mg/dL Magnesium 1.8 (1.6-2.3) mg/dL Total Bilirubin 0.7 (0.2-1.3) mg/dL AST 25 (14-36) U/L ALT 27 (9-52) U/L Alkaline Phosphatase 115 (38-126) U/L Troponin I (0.000-0.034) ng/mL NT-Pro-B Natriuret Pep pg/mL Total Protein 7.3 (6.3-8.2) g/dL Albumin 4.3 (3.5-5.0) g/dL 07/28/18 07/28/18 07/28/18 Range/Units 17:15 17:15 21:13 WBC (3.8-10.6) k/uL RBC (3.80-5.40) m/uL Hgb (11.4-16.0) gm/dL Hct (34.0-46.0) % MCV (80.0-100.0) fL MCH (25.0-35.0) pg MCHC (31.0-37.0) g/dL RDW (11.5-15.5) % Plt Count (150-450) k/uL Neutrophils % % Lymphocytes % % Monocytes % % Eosinophils % % Basophils % % Neutrophils # (1.3-7.7) k/uL Lymphocytes # (1.0-4.8) k/uL Monocytes # (0-1.0) k/uL Eosinophils # (0-0.7) k/uL Basophils # (0-0.2) k/uL PT (9.0-12.0) sec INR (<1.2) APTT (22.0-30.0) sec D-Dimer (<0.60) mg/L FEU Sodium (137-145) mmol/L Potassium (3.5-5.1) mmol/L Chloride (98-107) mmol/L Carbon Dioxide (22-30) mmol/L Anion Gap mmol/L BUN (7-17) mg/dL Creatinine (0.52-1.04) mg/dL Est GFR (CKD-EPI)AfAm (>60 ml/min/1.73 sqM) Est GFR (CKD-EPI)NonAf (>60 ml/min/1.73 sqM) Glucose (74-99) mg/dL Calcium (8.4-10.2) mg/dL Magnesium (1.6-2.3) mg/dL Total Bilirubin (0.2-1.3) mg/dL AST (14-36) U/L ALT (9-52) U/L Alkaline Phosphatase (38-126) U/L Troponin I <0.012 <0.012 (0.000-0.034) ng/mL NT-Pro-B Natriuret Pep 61 pg/mL Total Protein (6.3-8.2) g/dL Albumin (3.5-5.0) g/dL - EKG Data -: EKG Interpreted by Me (and dr kelly ) EKG Comments: Ventricular rate 88, [place] interval 124, QRS 72, QT/QTC 344/416. Normal sinus rhythm. No significant change from prior EKG. No concern for acute ischemia. Disposition Clinical Impression: Chest pain, atypical Disposition: HOME SELF-CARE Condition: Stable Instructions (If sedation given, give patient instructions): Chest Pain (ED) Additional Instructions: Patient to adhere to previously discussed treatment plan and will take medicatio n(s) as directed. Patient to follow up with PCP in 1-2 days. Patient to return to ED if symptoms do not improve. Follow-up with primary care provider tomorrow. Follow-up with combat control manager tomorrow. Return to ER if condition worsens in any way. Prescriptions: predniSONE 50 mg PO DAILY #5 tab Is patient prescribed a controlled substance at d/c from ED?: No Referrals: None,Stated [Primary Care Provider] - 1-2 days Yao Silva MD [STAFF PHYSICIAN] - 1-2 days
[2018-07-28 17:31] LABS: Basophils % (A) 0 %; Eosinophils # (A) 0.3 k/uL (0-0.7); Eosinophils % (A) 4 %; HCT 45.3 % (34.0-46.0); Lymphocytes # (A) 1.6 k/uL (1.0-4.8); Lymphocytes % (A) 25 %; MCH 28.5 pg (25.0-35.0); MCHC 30.8 g/dL (31.0-37.0); MCV 92.5 fL (80.0-100.0); Mean Platelet Volume 7.7; Monocytes # (A) 0.4 k/uL (0-1.0); Monocytes % (A) 6 %; Neutrophils # (A) 3.9 k/uL (1.3-7.7); Neutrophils % (A) 62 %; Platelet Count 180 k/uL (150-450); RDW 13.9 % (11.5-15.5); WBC 6.3 k/uL (3.8-10.6)
[2018-07-28 17:39] LABS: ALT 27 U/L (9-52); AST 25 U/L (14-36); Albumin 4.3 g/dL (3.5-5.0); Alkaline Phosphatase 115 U/L (38-126); Anion Gap 4 mmol/L; Blood Urea Nitrogen 13 mg/dL (7-17); Calcium 10.3 mg/dL (8.4-10.2); Carbon Dioxide 28 mmol/L (22-30); Chloride 109 mmol/L (98-107); Glucose 108 mg/dL (74-99); Magnesium 1.8 mg/dL (1.6-2.3); Potassium 4.5 mmol/L (3.5-5.1); Sodium 141 mmol/L (137-145); Total Bilirubin 0.7 mg/dL (0.2-1.3); Total Protein 7.3 g/dL (6.3-8.2)
--- NOTE | 2018-07-28 17:59 | XR ---
EXAMINATION TYPE: XR chest 2V DATE OF EXAM: 07/28/2018 COMPARISON: 07/10/2013 HISTORY: 48-year-old female with chest pain TECHNIQUE: AP and lateral views FINDINGS: Heart upper limits of normal in size. Aorta and pulmonary vasculature within normal limits. No consol idation or pleural effusion. IMPRESSION: No acute cardiopulmonary process.
[2018-07-28 18:02] LABS: INR 0.9 (<1.2); Partial Thromboplastin Time 23.4 sec (22.0-30.0); Prothrombin Time 9.8 sec (9.0-12.0)
[2018-07-28 18:06] LABS: D-Dimer 1.29 mg/L FEU (<0.60)
--- NOTE | 2018-07-28 19:05 | CT ---
EXAMINATION TYPE: CT chest angio for PE DATE OF EXAM: 07/28/2018 COMPARISON: None HISTORY: 48-year-old female chest pain TECHNIQUE: Contiguous axial scanning of the chest performed with IV Contrast, patient injected with 3 5cc mL of Isovue 370. Coronal/sagittal MIP reconstructions performed. CT DLP: 440.1 mGycm Automated exposure control for dose reduction was used. FINDINGS: Heart is normal size without pericardial effusion. No flattening of the interventricular septum or re flux of contrast into the hepatic veins. Aorta normal caliber with conventional branching anatomy. No thoracic lymphadenopathy. Borderline suboptimal opacification of the pulmonary artery system. Attenuation is [address] [place] uni ts. Segmental and more distal arterial branches show even less opacification and are very limited. Ad ditional bibasilar breathing motion artifact. No large central or lobar pulmonary embolus. Mild diffuse bronchial wall thickening. No consolidation or pleural effusion. Visualized upper abdomen shows colonic diverticulosis and scattered small hypodense lesions in the li nick, probable cysts. Bones: Endplate spondylosis mid to lower thoracic spine. Dextroconvex curvature/scoliosis mid thoraci c spine. IMPRESSION: BORDERLINE SUBOPTIMAL CONTRAST BOLUS. SEGMENTAL AND MORE DISTAL ARTERIAL BRANCHES SHOW EVEN LESS OPAC IFICATION AND ARE VERY LIMITED. NO LARGE CENTRAL OR LOBAR PULMONARY EMBOLUS.
[2018-07-28 22:42] VITALS: BP 142/83; PULSE 90
== END 2018-07-28 23:00 | disposition home or self-care (01) ==
LOC: EC 16:48
DX: R07.89 Other chest pain (principal); M25.561 Pain in right knee; M25.562 Pain in left knee; M25.551 Pain in right hip; M25.552 Pain in left hip; R79.89 Other specified abnormal findings of blood chemistry; M06.9 Rheumatoid arthritis, unspecified; Z86.711 Personal history of pulmonary embolism; Z79.52 Long term (current) use of systemic steroids; Z79.899 Other long term (current) drug therapy; Z88.0 Allergy status to penicillin; Z88.5 Allergy status to narcotic agent
CPT/HCPCS: 36415; 93005; 85379; 83880; 80053; 83735; 84484; 85025; 85610; 85730; 71046; 71275; 99285; 96374; 96361; J2270; Q9967

== ENCOUNTER 2018-10-13 18:02 | Observation (INO) | payer MEDICARE ==
[2018-10-13] MEDS ORDERED: BENZONATATE 100 MG CAP PO STA (18:53)
[2018-10-13] MEDS ORDERED: IPRATROPIUM-ALBUTEROL 3 ML NEB INHALATION STA (18:53)
[2018-10-13] MEDS ORDERED: guaiFENesin SYRUP 100MG/5ML 200 MG/10 ML CUP PO STA (18:56)
--- NOTE | 2018-10-13 19:22 | XR ---
EXAMINATION TYPE: XR chest 2V DATE OF EXAM: 10/13/2018 COMPARISON: 07/28/2018 HISTORY: 48-year-old female with shortness of breath and cough, pain TECHNIQUE: PA and lateral views FINDINGS: Heart normal size. Aorta and pulmonary vasculature within normal limits. Mild peribronchial cuffing. No consolidation or pleural effusion. IMPRESSION: Mild peribronchial cuffing could reflect bronchitis or asthma. Otherwise, no acute process seen.
[2018-10-13 19:29] LABS: Basophils % (A) 0 %; Eosinophils # (A) 0.2 k/uL (0-0.7); Eosinophils % (A) 3 %; HCT 42.7 % (34.0-46.0); HGB 13.7 gm/dL (11.4-16.0); Lymphocytes # (A) 1.4 k/uL (1.0-4.8); Lymphocytes % (A) 21 %; MCH 29.2 pg (25.0-35.0); Mean Platelet Volume 8.3; Monocytes # (A) 0.2 k/uL (0-1.0); Monocytes % (A) 3 %; Neutrophils # (A) 4.6 k/uL (1.3-7.7); Neutrophils % (A) 71 %; Platelet Count 244 k/uL (150-450); RBC 4.69 m/uL (3.80-5.40); RDW 14.1 % (11.5-15.5); WBC 6.5 k/uL (3.8-10.6)
[2018-10-13 19:36] LABS: African American GFR (CKD) >90 (>60 ml/min/1.73 sqM); Anion Gap 8 mmol/L; Blood Urea Nitrogen 9 mg/dL (7-17); Calcium 9.7 mg/dL (8.4-10.2); Carbon Dioxide 22 mmol/L (22-30); Chloride 107 mmol/L (98-107); Glucose 129 mg/dL (74-99); Sodium 137 mmol/L (137-145)
[2018-10-13 19:48] LABS: Potassium 4.6 mmol/L (3.5-5.1)
--- NOTE | 2018-10-13 22:03 | CT ---
EXAMINATION TYPE: CT chest angio for PE DATE OF EXAM: 10/13/2018 COMPARISON: 07/28/2018 HISTORY: 48-year-old female cough, difficulty breathing. TECHNIQUE: Contiguous axial scanning of the chest performed with IV Contrast, patient injected with 1 00 mL of Isovue 370. Coronal/sagittal MIP reconstructions performed. CT DLP: 291.9 mGycm Automated exposure control for dose reduction was used. FINDINGS: Heart normal size without pericardial effusion. Some coronary vessel calcifications are present. Aorta normal caliber with conventional arch vessel branching anatomy. No thoracic lymphadenopathy by CT size criteria. Incidentally visualized severe bilateral maxillary sinus disease. Satisfactory opacification of the pulmonary to systemic. There is breathing motion at the lower lungs . No evidence for pulmonary embolus in the upper or mid lungs or to the lower lung lobar level. No de finite pulmonary embolus at the right base. Evaluation of the lung shows mild diffuse bronchial wall thickening without consolidation or pleural effusion. Tiny hiatal hernia. Cyst within the anterior right liver lobe measuring 1.5 cm. Bones: Mild endplate spondylosis lower thoracic spine. Accentuated lower thoracic kyphosis. IMPRESSION: 1. MILD DIFFUSE BRONCHIAL WALL THICKENING SUGGESTS BRONCHITIS OR ASTHMA. 2. SOME RESPIRATORY MOTION ARTIFACT ESPECIALLY AT THE LEFT BASE. SOME OF THE SEGMENTAL AND MORE DISTA L ARTERIAL BRANCHES OF THE BASILAR LEFT LOWER LOBE ARE NONDIAGNOSTIC. OTHERWISE, NO EVIDENCE FOR PULM ONARY EMBOLUS ELSEWHERE IN THE LUNGS.
[2018-10-13] MEDS ORDERED: methylPREDNISolone SOD SUCCI 125 MG/2 ML VIAL IV STA (22:35)
[2018-10-13] MEDS ORDERED: KETOROLAC 30 MG/ML 1 ML VIAL IVP STA (22:35)
[2018-10-13] MEDS ORDERED: ACETAMINOPHEN TAB 325 MG TAB PO PRN (23:13)
[2018-10-13] MEDS ORDERED: NALOXONE 0.4 MG/ML 1 ML VIAL IV PRN (23:13)
[2018-10-14] MEDS: KETOROLAC 30 MG/ML 1 ML VIAL IVP SCH ×2 (00:31→07:07)
[2018-10-14] MEDS: BENZONATATE 100 MG CAP PO SCH ×3 (00:32→16:00)
[2018-10-14] MEDS: SODIUM CHLORIDE 0.9% 1,000 ML IV SCH ×2 (00:32→19:50)
[2018-10-14 01:27] VITALS: BMI 31.2
[2018-10-14] MEDS: guaiFENesin-Coden 100-10MG/5ML 10 ML CUP PO PRN ×4 (01:30→21:43)
[2018-10-14] MEDS: IPRATROPIUM-ALBUTEROL 3 ML NEB INHALATION SCH ×7 (01:57→23:34)
[2018-10-14] MEDS ORDERED: methylPREDNISolone SOD SUCCI 125 MG/2 ML VIAL IV SCH (09:00)
[2018-10-14] MEDS ORDERED: ACETAMINOPHEN TAB 325 MG TAB PO PRN (11:50)
--- NOTE | 2018-10-14 11:57 | P.HPIM ---
History of Present Illness On-call hospitalist covering for Dr. Kimble This is a pleasant 48 years old female with past medical history of fibromyalgia, rheumatoid arthritis, anemia, hysterectomy last year, tremor in both parents has been checked by neurologist as per patient. Patient presents with cough and dyspnea for 1 week and duration, Monday she went to [facility] where they gave her some breathing treatment, decrease her prednisone to 50 mg plus inhibitor and discharge her on Z-John. However she kept getting worse after finishing her therapy 4 days of Z-John she notes that she is not improving so decided to come to the hospital yesterday with worsening dyspnea with phlegm and her throat was her tendon chest hurting on coughing only. She never smoked. She was occasional alcohol and no drugs. Patient denies history of asthma and is the first time she has such respiratory problem. She denies other symptoms of abdominal pain, no urinary complaints. No change in urine or bowel habits. No headache. No nausea vomiting. No fever. Patient was started on Solu-Medrol 60 mg daily, normal sling and 75 L/h, cough syrup and Tylenol. On admission Vitas looks stable. She is saturating 95% on room air. She is afebrile. Labs showing an unremarkable CBC with normal hemoglobin of 13.7, normal WBC 6.5K, BSA also is unremarkable with normal electrolytes and creatinine. D-dimer was elevated and she had a CTA of the chest done with no evidence of pulmonary embolism. Patient says she's been started on blood pressure pill for her tremor and she doesn't want that. Review of Systems CONSTITUTIONAL: No fever, no malaise, no fatigue. HEENT: No recent visual problems or hearing problems. Denied any sore throat. CARDIOVASCULAR: No orthopnea, PND, no palpitations, no syncope. PULMONARY: no hemoptysis. GASTROINTESTINAL: No diarrhea, no nausea, no vomiting, no abdominal pain. Normoactive bowel sounds. NEUROLOGICAL: No headaches, no weakness, no numbness. HEMATOLOGICAL: Denies any bleeding or petechiae. GENITOURINARY: Denies any burning micturition, frequency, or urgency. MUSCULOSKELETAL/RHEUMATOLOGICAL: Denies any joint pain, swelling, or any muscle pain. ENDOCRINE: Denies any polyuria or polydipsia. 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 2014, shingles 03-19-18 History of Any Multi-Drug Resistant Organisms: None Reported Past Surgical History: Hysterectomy Additional Past Surgical History / Comment(s): COLONOSCOPY, EGD Past Anesthesia/Blood Transfusion Reactions: No Reported Reaction Past Psychological History: Depression Smoking Status: Never smoker Past Alcohol Use History: Rare Past Drug Use History: None Reported - Past Family History Mother Family Medical History: Renal Disease Father Family Medical History: CVA/TIA Medications and Allergies Home Medications Medication Instructions Recorded Confirmed Type Ibuprofen/Diphenhydramine HCl 2 cap PO HS PRN 07/31/14 10/13/18 History [Advil Pm Liqui-Gels] Hydrocodone/Acetaminophen [Center 1 tab PO BID 10/13/18 10/13/18 History 5-325] Allergies Allergy/AdvReac Type Severity Reaction Status Date / Time Penicillins Allergy Anaphylaxis Verified 10/13/18 19:37 tramadol Allergy Unknown Verified 10/13/18 19:37 Physical Exam Vitals: Vital Signs Temp Pulse Pulse Resp BP BP Pulse Ox 10/14/18 08:27 88 10/14/18 08:20 98.2 F 85 16 131/85 95 10/14/18 08:15 88 10/14/18 02:07 88 10/14/18 01:59 88 10/14/18 01:12 97.9 F 88 18 151/91 97 10/14/18 01:00 18 10/14/18 00:46 98.0 F 92 18 148/88 96 10/13/18 22:52 95 20 142/103 96 10/13/18 20:58 98.3 F 87 20 143/92 98 10/13/18 20:13 76 10/13/18 20:07 75 10/13/18 19:25 22 10/13/18 18:06 98.1 F 93 22 131/84 99 Intake and Output 10/13/18 10/14/18 10/14/18 22:59 06:59 14:59 Intake Total 320 Balance 320 Intake: Oral 320 Other: # Voids 2 Weight 92.079 kg GENERAL: The patient is alert and oriented x3, not in any acute distress. Well developed, well nourished. HEENT: Pupils are round and equally reacting to light. EOMI. No scleral icterus. No conjunctival pallor. Normocephalic, atraumatic. No pharyngeal erythema. No thyromegaly. CARDIOVASCULAR: S1 and S2 present. No murmurs, rubs, or gallops. -PULMONARY: Chest is clear to auscultation, bilateral expiratory wheezing with prolonged expiration phase. Decreased breath sounds on both sides ABDOMEN: Soft, nontender, nondistended, normoactive bowel sounds. No palpable organomegaly. MUSCULOSKELETAL: No joint swelling or deformity. EXTREMITIES: No cyanosis, clubbing, or pedal edema. NEUROLOGICAL: Gross neurological examination did not reveal any focal deficits. SKIN: No rashes. Results CBC & Chem 7: 10/13/18 19:07 10/13/18 19:07 Labs: Abnormal Lab Results - Last 24 Hours (Table) 10/13/18 10/13/18 Range/Units 19:07 19:07 D-Dimer 2.21 H (<0.60) mg/L FEU Glucose 129 H (74-99) mg/dL Thrombosis Risk Factor Assmnt - Choose All That Apply Each Factor Represents 1 point: Age 41-60 years, Obesity (BMI >25) Other Risk Factors: No Other congenital or acquired thrombophilia - If yes, enter type in comment: No Thrombosis Risk Factor Assessment Total Risk Factor Score: 2 Thrombosis Risk Factor Assessment Level: Low Risk Assessment and Plan Assessment: Acute tracheobronchitis, failed outpatient therapy Rheumatoid arthritis Chronic fibromyalgia Bilateral upper extremity tremor Hysterectomy one year ago History of anemia Plan: This is a pleasant 48 years old female who presents with bronchitis. Increase the dose of steroids to 60 mg every 6 hours, bronchodilator, start oxygen 2 L/m via NC. Start patient on Levaquin. Check sputum for culture and sensitivity. If patient shows no interval improvement then we would suggest pulmonary team to evaluate the patient. Stop NSAIDs Toradol. Start Center for pain management. We'll start the patient on the prima done 50 mg at night for her tremor and if patient tolerated that well and can be decreased later on to control her tremor. Recommend Patient follow-up with her neurologist as an outpatient Labs and medication were reviewed.. Continue same treatment. Continue with symptomatic treatment. Resume home medication. Monitor lytes and vitals. DVT and GI prophylaxis. Further recommendations of the clinical course of the patient DVT prophylaxis: Subcutaneous heparin GI Prophylaxis: Pepcid PT/OT: Pending Prognosis is guarded
[2018-10-14] MEDS ORDERED: LEVOFLOXACIN 500MG-D5W PMX 500 MG in DEXTROSE/WATER 1 100ML.BAG IVPB SCH (12:00)
--- NOTE | 2018-10-14 15:13 | US ---
EXAMINATION TYPE: US venous doppler duplex LE DATE OF EXAM: 10/14/2018 11:51 AM COMPARISON: US dated 03/07/2018 CLINICAL HISTORY: Rule out DVT. Bilateral leg pain SIDE PERFORMED: Bilateral TECHNIQUE: The lower extremity deep venous system is examined utilizing real time linear array sonog lisa with graded compression, doppler sonography and color-flow sonography. VESSELS IMAGED: External Iliac Vein (EIV) Common Femoral Vein Deep Femoral Vein Greater Saphenous Vein * Femoral Vein Popliteal Vein Small Saphenous Vein * Proximal Calf Veins (* superficial vessels) There is normal flow, compressibility, vascular waveforms. Right Leg: Negative for DVT Left Leg: Negative for DVT IMPRESSION: No evident deep venous thrombosis at or above the knees.
[2018-10-14] MEDS: methylPREDNISolone SOD SUCCI 125 MG/2 ML VIAL IV SCH ×2 (15:50→20:05)
[2018-10-14] MEDS: HYDROcodone/APAP 5-325MG 1 EACH TAB PO PRN (15:53)
[2018-10-14] MEDS: ENOXAPARIN 40 MG/0.4 ML SYRINGE SQ SCH (16:02)
[2018-10-14] MEDS ORDERED: PRIMIDONE 50 MG TAB PO SCH (21:00)
[2018-10-14] MEDS: FAMOTIDINE 20 MG/2 ML VIAL IV SCH (21:41)
[2018-10-15] MEDS: SODIUM CHLORIDE 0.9% 1,000 ML IV SCH (00:11)
[2018-10-15] MEDS: HYDROcodone/APAP 5-325MG 1 EACH TAB PO PRN ×3 (00:11→19:34)
[2018-10-15] MEDS: BENZONATATE 100 MG CAP PO SCH ×2 (00:18→08:17)
[2018-10-15] MEDS: methylPREDNISolone SOD SUCCI 125 MG/2 ML VIAL IV SCH ×2 (00:44→05:40)
[2018-10-15] MEDS: IPRATROPIUM-ALBUTEROL 3 ML NEB INHALATION SCH ×5 (03:19→21:08)
[2018-10-15] MEDS: guaiFENesin-Coden 100-10MG/5ML 10 ML CUP PO PRN (05:40)
[2018-10-15] MEDS ORDERED: methylPREDNISolone SOD SUCCI 40 MG/ML 1 ML VIAL IV SCH (08:00)
[2018-10-15] MEDS: ENOXAPARIN 40 MG/0.4 ML SYRINGE SQ SCH (08:17)
[2018-10-15] MEDS: FAMOTIDINE 20 MG/2 ML VIAL IV SCH (08:17)
[2018-10-15] MEDS ORDERED: BUTA/APAP/CAF/COD 50-325-40-30 CAP PO STA (10:28)
[2018-10-15] MEDS ORDERED: MAGNESIUM SULFATE-D5W PMX 1 GM in DEXTROSE/WATER 1 100ML.BAG IVPB ONE (10:30)
[2018-10-15] MEDS ORDERED: BUTALB/APAP/CAFF 50-325-40MG TAB PO STA (10:48)
[2018-10-15] MEDS ORDERED: BUTALB/APAP/CAFF 50-325-40MG TAB PO PRN (10:48)
[2018-10-15] MEDS: LEVOFLOXACIN 500 MG TAB PO SCH (11:12)
[2018-10-15] MEDS: guaiFENesin 600 MG TABLET.ER PO SCH ×2 (11:12→21:25)
--- NOTE | 2018-10-15 14:22 | P.PN ---
Subjective Progress Note Date: 10/15/18 This is a pleasant 48 years old female with past medical history of fibromyalgia, rheumatoid arthritis, anemia, hysterectomy last year, tremor in both parents has been checked by neurologist as per patient. Patient presents with cough and dyspnea for 1 week and duration, Monday she went to [facility] where they gave her some breathing treatment, decrease her prednisone to 50 mg plus inhibitor and discharge her on Z-John. However she kept getting worse after finishing her therapy 4 days of Z-John she notes that she is not improving so decided to come to the hospital yesterday with worsening dyspnea with phlegm and her throat was her tendon chest hurting on coughing only. She never smoked. She was occasional alcohol and no drugs. Patient denies history of asthma and is the first time she has such respiratory problem. She denies other symptoms of abdominal pain, no urinary complaints. No change in urine or bowel habits. No headache. No nausea vomiting. No fever. Patient was started on Solu-Medrol 60 mg daily, normal sling and 75 L/h, cough syrup and Tylenol. On admission Vitas looks stable. She is saturating 95% on room air. She is afebrile. Labs showing an unremarkable CBC with normal hemoglobin of 13.7, normal WBC 6.5K, BSA also is unremarkable with normal electrolytes and creatinine. D-dimer was elevated and she had a CTA of the chest done with no evidence of pulmonary embolism. Patient says she's been started on blood pressure pill for her tremor and she doesn't want that. 10/15/2018 Complains of nonproductive cough causing headache with sensitivity to light and sound. Reports cough is improving .Sputum therefore has not been able to be collected. Denies history of migraines. Oxygen is being weaned off. Afebrile. Denies chest pain, palpitations. Objective - Vital Signs Vital signs: Vital Signs Temp 97.8 F 10/15/18 12:35 Pulse 82 10/15/18 12:35 Resp 18 10/15/18 12:35 BP 150/91 10/15/18 12:35 Pulse Ox 95 10/15/18 12:35 Intake & Output 10/14/18 10/15/18 10/15/18 18:59 06:59 18:59 Intake Total 300 1740 200 Balance 300 1740 200 Intake: Oral 300 1740 200 Other: # Voids 1 # Emeses 1 - Exam GENERAL: The patient is alert and oriented x3, not in any acute distress. HEENT: Pupils are round and equally reacting to light. EOMI. No scleral icterus. No conjunctival pallor. Normocephalic, atraumatic. No pharyngeal erythema. No thyromegaly. CARDIOVASCULAR: S1 and S2 present. No murmurs, rubs, or gallops. -PULMONARY: Chest is clear to auscultation, no rhonchi, no crackles, no wheezing ABDOMEN: Soft, nontender, nondistended, normoactive bowel sounds. No palpable organomegaly. MUSCULOSKELETAL: No joint swelling or deformity. EXTREMITIES: No cyanosis, clubbing, or pedal edema. NEUROLOGICAL: Gross neurological examination did not reveal any focal deficits. SKIN: No rashes. - Labs CBC & Chem 7: 10/13/18 19:07 10/13/18 19:07 Assessment and Plan Assessment: Acute tracheobronchitis, failed outpatient therapy Rheumatoid arthritis Chronic fibromyalgia Bilateral upper extremity tremor Hysterectomy one year ago History of anemia Right liver lobe 1.5 cm cyst, further f/u outpatient Plan: Continue on current medication regime ,monitoring and symptomatic treatment.Medications including antibiotics transitioned to oral. Mucinex and Fiorcet added to med regime. Tessalon Perles discontinued. Primidone discontinued. Discharge planning in progress possibly later today or tomorrow, pending resolution of headache. Increase ambulation as tolerated. Further recommendations to follow. The impression and plan of care has been dictated as directed. : I performed a history and examination of this patient, discussed the same with the dictator. I agree with the dictator's note ,documented as a scribe. Any additional findings or plans will be noted.
[2018-10-15] MEDS ORDERED: BUTA/APAP/CAF/COD 50-325-40-30 CAP PO PRN (14:30)
[2018-10-15] MEDS: SENNOSIDES-DOCUSATE SODIUM 1 EACH TAB PO SCH ×2 (15:06→21:25)
[2018-10-15] MEDS: FAMOTIDINE 20 MG TAB PO SCH (21:25)
[2018-10-16] MEDS: IPRATROPIUM-ALBUTEROL 3 ML NEB INHALATION SCH ×3 (02:12→09:15)
[2018-10-16] MEDS: HYDROcodone/APAP 5-325MG 1 EACH TAB PO PRN (03:56)
[2018-10-16] MEDS ORDERED: predniSONE 20 MG TAB PO SCH (09:00)
[2018-10-16] MEDS: ENOXAPARIN 40 MG/0.4 ML SYRINGE SQ SCH (09:55)
[2018-10-16] MEDS: guaiFENesin 600 MG TABLET.ER PO SCH (09:56)
[2018-10-16] MEDS: LEVOFLOXACIN 500 MG TAB PO SCH (09:56)
[2018-10-16] MEDS: FAMOTIDINE 20 MG TAB PO SCH (09:56)
[2018-10-16] MEDS: SENNOSIDES-DOCUSATE SODIUM 1 EACH TAB PO SCH (09:57)
[2018-10-16 10:04] VITALS: BP 134/77; PULSE 78; RESP 16; TEMP 97.9
--- NOTE | 2018-10-16 18:06 | P.DS ---
Providers Date of admission: 10/13/18 23:29 Expected date of discharge: 10/16/18 Attending physician: Chas Chong MD Primary care physician: Stated None Hospital Course: Final Diagnoses: Acute tracheobronchitis, failed outpatient therapy, improving Rheumatoid arthritis Chronic fibromyalgia Bilateral upper extremity tremor Hysterectomy one year ago History of anemia Right liver lobe 1.5 cm cyst, further f/u outpatient Hospital course:This is a pleasant 48 years old female with past medical history of fibromyalgia, rheumatoid arthritis, anemia, hysterectomy last year, tremor in both parents has been checked by neurologist as per patient. Patient presents with cough and dyspnea for 1 week and duration, Monday she went to [facility] where they gave her some breathing treatment, decrease her prednisone to 50 mg plus inhibitor and discharge her on Z-John. However she kept getting worse after finishing her therapy 4 days of Z-John she notes that she is not improving so decided to come to the hospital yesterday with worsening dyspnea with phlegm and her throat was her tendon chest hurting on coughing only. She never smoked. She was occasional alcohol and no drugs. Patient denies history of asthma and is the first time she has such respiratory problem. She denies other symptoms of abdominal pain, no urinary complaints. No change in urine or bowel habits. No headache. No nausea vomiting. No fever. Patient was started on Solu-Medrol 60 mg daily, normal sling and 75 L/h, cough syrup and Tylenol. On admission Vitas looks stable. She is saturating 95% on room air. She is afebrile. Labs showing an unremarkable CBC with normal hemoglobin of 13.7, normal WBC 6.5K, BSA also is unremarkable with normal electrolytes and creatinine. D-dimer was elevated and she had a CTA of the chest done with no evidence of pulmonary embolism. Patient says she's been started on blood pressure pill for her tremor and she doesn't want that. 10/15/2018 Complains of nonproductive cough causing headache with sensitivity to light and sound. Reports cough is improving .Sputum therefore has not been able to be collected. Denies history of migraines. Oxygen is being weaned off. Afebrile. Denies chest pain, palpitations. Headache resolved, cough improved. Denies chest pain, palpitations or increased shortness of breath. Denies lightheadedness dizziness or focal deficits. Significant clinical improvement. Patient is being discharged home in a stable condition with guarded prognosis. - Exam GENERAL: alert and oriented x3, not in any acute distress. CARDIOVASCULAR: S1 and S2 present. No murmurs, rubs, or gallops. -PULMONARY: Chest is clear to auscultation, no rhonchi, no crackles, no wheezing ABDOMEN: Soft, nontender, nondistended, normoactive bowel sounds. NEUROLOGICAL: Gross neurological examination did not reveal any focal deficits. The impression and plan of care has been dictated as directed. : I performed a history and examination of this patient, discussed the same with the dictator. I agree with the dictator's note ,documented as a scribe. Any additional findings or plans will be noted. Time taken: 35 minutes Patient Condition at Discharge: Stable Plan - Discharge Summary New Discharge Prescriptions: New predniSONE 10 mg PO DIRECTED #30 tab Levofloxacin [Levaquin] 500 mg PO DAILY #5 tab guaiFENesin [Mucinex] 1,200 mg PO Q12HR tablet.er Famotidine [Pepcid] 20 mg PO BID 15 Days #30 tab Albuterol Sulfate [Proair Hfa] 1 - 2 puff INHALATION Q6HR PRN #1 inhaler PRN Reason: Shortness Of Breath hydrOXYzine PAMOATE [Vistaril] 25 mg PO TID PRN #12 cap PRN Reason: Anxiety Continue Ibuprofen/Diphenhydramine HCl [Advil Pm Liqui-Gels] 2 cap PO HS PRN PRN Reason: Pain Hydrocodone/Acetaminophen [[place] 5-325] 1 tab PO BID Discharge Medication List Ibuprofen/Diphenhydramine HCl [Advil Pm Liqui-Gels] 2 cap PO HS PRN 07/31/14 [History] Hydrocodone/Acetaminophen [[place] 5-325] 1 tab PO BID 10/13/18 [History] Famotidine [Pepcid] 20 mg PO BID 15 Days #30 tab 10/15/18 [Rx] Levofloxacin [Levaquin] 500 mg PO DAILY #5 tab 10/15/18 [Rx] guaiFENesin [Mucinex] 1,200 mg PO Q12HR tablet.er 10/15/18 [Rx] predniSONE 10 mg PO DIRECTED #30 tab 10/15/18 [Rx] Albuterol Sulfate [Proair Hfa] 1 - 2 puff INHALATION Q6HR PRN #1 inhaler 10/16/18 [Rx] hydrOXYzine PAMOATE [Vistaril] 25 mg PO TID PRN #12 cap 10/16/18 [Rx] Follow up Appointment(s)/Referral(s): Chas Chong MD [STAFF PHYSICIAN] - 10/24/18 11:00 am (You have an appointment at the [facility] for your follow up. Wednesday, October 24, 2018 at 11:00 am) Ambulatory/Diagnostic Orders: Complete Blood Count w/diff [LAB.AMB] Time Frame: 3 Days, Location: None Selected Patient Instructions/Handouts: Chronic Cough (DC) Activity/Diet/Wound Care/Special Instructions: Good handwashing, drink plenty of fluids. Call Dr Trevino if your cough worsens, if you develop fever or chills, or if you have any questions or concerns. Discharge Disposition: HOME SELF-CARE
--- NOTE | 2018-10-23 11:15 | ED ---
SOB HPI - General Chief Complaint: Shortness of Breath Stated Complaint: Sob/cough Time Seen by Provider: 10/13/18 18:12 Source: patient Mode of arrival: ambulatory Limitations: no limitations - History of Present Illness Initial Comments: 48 yoF presenting with a cough and worsening shortness of breath that has been present for one week. She states she was seen at an outside clinic and prescribed Prednisone and a Z pack without relief. She denies previous history of asthma, COPD, DVT/PE, recent surgery, active cancer, or hormone replacement therapy. She admits to pleuritic chest pain and subjective fevers. - Related Data Home Medications Medication Instructions Recorded Confirmed Ibuprofen/Diphenhydramine HCl 2 cap PO HS PRN 07/31/14 10/13/18 [Advil Pm Liqui-Gels] Hydrocodone/Acetaminophen [[place] 1 tab PO BID 10/13/18 10/13/18 5-325] Previous Rx's Medication Instructions Recorded Famotidine [Pepcid] 20 mg PO BID 15 Days #30 tab 10/15/18 Levofloxacin [Levaquin] 500 mg PO DAILY #5 tab 10/15/18 guaiFENesin [Mucinex] 1,200 mg PO Q12HR tablet.er 10/15/18 predniSONE 10 mg PO DIRECTED #30 tab 10/15/18 Albuterol Sulfate [Proair Hfa] 1 - 2 puff INHALATION Q6HR PRN #1 10/16/18 inhaler hydrOXYzine PAMOATE [Vistaril] 25 mg PO TID PRN #12 cap 10/16/18 Allergies Allergy/AdvReac Type Severity Reaction Status Date / Time Penicillins Allergy Anaphylaxis Verified 10/13/18 19:37 tramadol Allergy Unknown Verified 10/13/18 19:37 codeine AdvReac Nausea & Uncoded 10/15/18 11:12 Vomiting Review of Systems ROS Statement: Those systems with pertinent positive or pertinent negative responses have been documented in the HPI. ROS Other: All systems not noted in ROS Statement are negative. 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, shingles 03-19-18 History of Any Multi-Drug Resistant Organisms: None Reported Past Surgical History: Hysterectomy Additional Past Surgical History / Comment(s): COLONOSCOPY, EGD Past Anesthesia/Blood Transfusion Reactions: No Reported Reaction Past Psychological History: Depression Smoking Status: Never smoker Past Alcohol Use History: Rare Past Drug Use History: None Reported - Past Family History Mother Family Medical History: Renal Disease Father Family Medical History: CVA/TIA General Exam Limitations: no limitations General appearance: alert, in no apparent distress Head exam: Present: atraumatic, normocephalic Eye exam: Present: normal appearance, PERRL, EOMI. Absent: scleral icterus, conjunctival injection ENT exam: Present: mucous membranes dry Neck exam: Present: full ROM. Absent: meningismus, lymphadenopathy Respiratory exam: Present: wheezes, chest wall tenderness, other (Harsh cough) Cardiovascular Exam: Present: regular rate, normal rhythm GI/Abdominal exam: Present: soft. Absent: distended, tenderness, guarding, rebound Extremities exam: Present: normal inspection Back exam: Present: normal inspection Neurological exam: Present: alert, oriented X3 Psychiatric exam: Present: normal affect, normal mood Skin exam: Present: warm, dry, intact Course Vital Signs 10/13/18 10/13/18 10/13/18 18:06 19:25 20:07 Temperature 98.1 F Pulse Rate 93 75 Respiratory 22 22 Rate Blood Pressure 131/84 O2 Sat by Pulse 99 Oximetry 10/13/18 10/13/18 10/13/18 20:13 20:58 22:52 Temperature 98.3 F Pulse Rate 76 87 95 Respiratory 20 20 Rate Blood Pressure 143/92 142/103 O2 Sat by Pulse 98 96 Oximetry 10/14/18 00:46 Temperature 98.0 F Pulse Rate 92 Respiratory 18 Rate Blood Pressure 148/88 O2 Sat by Pulse 96 Oximetry Medical Decision Making - Medical Decision Making 48 yof presenting with shortness of breath. On initial exam the patient is wheezing with a harsh cough. Her symptoms did not improve with breathing treatments and cough suppressants. She was dyspneic with walking. [place] PE score 1.5. Elevated d-dimer. Her CTPE was negative for PE. I spoke with the admitting physician who was agreeable to admission for bronchitis. Patient stable for transfer to the floor= - Lab Data Result diagrams: 10/13/18 19:07 10/13/18 19:07 Lab Results 10/13/18 10/13/18 10/13/18 Range/Units 19:07 19:07 19:07 WBC 6.5 (3.8-10.6) k/uL RBC 4.69 (3.80-5.40) m/uL Hgb 13.7 (11.4-16.0) gm/dL Hct 42.7 (34.0-46.0) % MCV 91.0 (80.0-100.0) fL MCH 29.2 (25.0-35.0) pg MCHC 32.0 (31.0-37.0) g/dL RDW 14.1 (11.5-15.5) % Plt Count 244 (150-450) k/uL Neutrophils % 71 % Lymphocytes % 21 % Monocytes % 3 % Eosinophils % 3 % Basophils % 0 % Neutrophils # 4.6 (1.3-7.7) k/uL Lymphocytes # 1.4 (1.0-4.8) k/uL Monocytes # 0.2 (0-1.0) k/uL Eosinophils # 0.2 (0-0.7) k/uL Basophils # 0.0 (0-0.2) k/uL D-Dimer 2.21 H (<0.60) mg/L FEU Sodium 137 (137-145) mmol/L Potassium 4.6 (3.5-5.1) mmol/L Chloride 107 (98-107) mmol/L Carbon Dioxide 22 (22-30) mmol/L Anion Gap 8 mmol/L BUN 9 (7-17) mg/dL Creatinine 0.65 (0.52-1.04) mg/dL Est GFR (CKD-EPI)AfAm >90 (>60 ml/min/1.73 sqM) Est GFR (CKD-EPI)NonAf >90 (>60 ml/min/1.73 sqM) Glucose 129 H (74-99) mg/dL Calcium 9.7 (8.4-10.2) mg/dL Disposition Clinical Impression: Bronchiolitis Disposition: ADMITTED IP TO THIS HOSP Condition: Stable Is patient prescribed a controlled substance at d/c from ED?: No Decision to Admit Reason: Admit from EC
== END 2018-10-16 11:40 | disposition home or self-care (01) ==
LOC: EC 18:02 → 6PED 23:29
PROVIDERS: ADMIT Family Medicine; ATTEND Family Medicine
DX: J20.9 Acute bronchitis, unspecified (principal); M06.9 Rheumatoid arthritis, unspecified; M79.7 Fibromyalgia; R25.1 Tremor, unspecified; E66.9 Obesity, unspecified; Z68.31 Body mass index [BMI] 31.0-31.9, adult; Z90.710 Acquired absence of both cervix and uterus; K76.89 Other specified diseases of liver; Z86.2 Personal history of diseases of the blood and blood-forming organs and certain disorders involving the immune mechanism; F32.9 Major depressive disorder, single episode, unspecified
CPT/HCPCS: 96361; 96365; 96372 ×3; 96375 ×2; 96376 ×3; 99285; 36415; 94640 ×6; 93005; 85379; 80048; 85025; 87070; 87205; 71046; 93970; 71275; G0378 ×4; J2930 ×3; J1956; J1650 ×3; J1885 ×2; J3475; J7512; Q9967

== ENCOUNTER 2018-12-14 17:52 | Observation (INO) | payer MEDICARE ==
[2018-12-14] MEDS ORDERED: IPRATROPIUM 0.5 MG/2.5 ML NEBU INHALATION STA (18:29)
[2018-12-14] MEDS ORDERED: predniSONE 20 MG TAB PO STA (18:29)
[2018-12-14] MEDS ORDERED: MAGNESIUM SULFATE-D5W PMX 1 GM in DEXTROSE/WATER 1 100ML.BAG IVPB STA (18:29)
[2018-12-14] MEDS ORDERED: ALBUTEROL NEBULIZED 2.5 MG/3 ML INHALATION STA (18:29)
[2018-12-14 19:21] LABS: ALT 21 U/L (9-52); AST 37 U/L (14-36); African American GFR (CKD) >90 (>60 ml/min/1.73 sqM); Albumin 3.9 g/dL (3.5-5.0); Alkaline Phosphatase 138 U/L (38-126); Anion Gap 8 mmol/L; Blood Urea Nitrogen 9 mg/dL (7-17); Calcium 10.2 mg/dL (8.4-10.2); Carbon Dioxide 26 mmol/L (22-30); Chloride 104 mmol/L (98-107); Glucose 95 mg/dL (74-99); Magnesium 1.7 mg/dL (1.6-2.3); Sodium 138 mmol/L (137-145); Total Bilirubin 0.4 mg/dL (0.2-1.3); Total Protein 7.6 g/dL (6.3-8.2)
[2018-12-14 19:22] LABS: Basophils # (A) 0.2 k/uL (0-0.2); Basophils % (A) 3 %; Eosinophils % (A) 18 %; HCT 39.9 % (34.0-46.0); HGB 13.5 gm/dL (11.4-16.0); Lymphocytes # (A) 1.1 k/uL (1.0-4.8); Lymphocytes % (A) 20 %; MCH 29.6 pg (25.0-35.0); MCHC 33.8 g/dL (31.0-37.0); MCV 87.4 fL (80.0-100.0); Mean Platelet Volume 8.2; Monocytes # (A) 0.3 k/uL (0-1.0); Monocytes % (A) 6 %; Neutrophils # (A) 2.8 k/uL (1.3-7.7); Neutrophils % (A) 51 %; Platelet Count 258 k/uL (150-450); Potassium 3.5 mmol/L (3.5-5.1); RBC 4.57 m/uL (3.80-5.40); RDW 13.2 % (11.5-15.5); WBC 5.4 k/uL (3.8-10.6)
--- NOTE | 2018-12-14 19:37 | XR ---
EXAMINATION TYPE: XR chest 2V DATE OF EXAM: 12/14/2018 COMPARISON: 10/13/2018 HISTORY: Chest pain TECHNIQUE: Frontal and lateral views of the chest are obtained. FINDINGS: Heart and mediastinum are normal. Lungs are clear. Costophrenic angles are clear. There ar e chest leads. Bony thorax is intact. IMPRESSION: Normal chest. No change.
[2018-12-14 20:03] LABS: Partial Thromboplastin Time 23.7 sec (22.0-30.0)
--- NOTE | 2018-12-14 20:04 | ED ---
SOB HPI - General Chief Complaint: Shortness of Breath Stated Complaint: Sob Time Seen by Provider: 12/14/18 18:06 Source: patient Mode of arrival: ambulatory Limitations: no limitations - History of Present Illness Initial Comments: Patient complains of cough and wheezing. She feels short of breath. She has no belly or back pain. She has no nausea or vomiting. She has no diaphoresis. She has no chest pain or pressure. She has no lightheadedness. She has no focal weakness. Nothing makes her symptoms better or worse. She has taken no medicine for this. She was not doing anything when this began. She denies sick contacts or travel. - Related Data Home Medications Medication Instructions Recorded Confirmed Hydrocodone/Acetaminophen [[place] 1 tab PO BID 10/13/18 12/14/18 5-325] Albuterol Sulfate [Proair Hfa] 2 puff INHALATION RT-Q6H PRN 12/14/18 12/14/18 predniSONE 10 mg PO DAILY 12/14/18 12/14/18 Allergies Allergy/AdvReac Type Severity Reaction Status Date / Time Penicillins Allergy Anaphylaxis Verified 12/14/18 18:18 tramadol Allergy Unknown Verified 12/14/18 18:18 codeine AdvReac Nausea & Uncoded 12/14/18 18:01 Vomiting Review of Systems ROS Statement: Those systems with pertinent positive or pertinent negative responses have been documented in the HPI. ROS Other: All systems not noted in ROS Statement are negative. 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 2014, shingles 03-19-18 History of Any Multi-Drug Resistant Organisms: None Reported Past Surgical History: Hysterectomy Additional Past Surgical History / Comment(s): COLONOSCOPY, EGD Past Anesthesia/Blood Transfusion Reactions: No Reported Reaction Past Psychological History: Depression Smoking Status: Never smoker Past Alcohol Use History: Occasional, Rare Past Drug Use History: None Reported - Past Family History Mother Family Medical History: Renal Disease Father Family Medical History: CVA/TIA General Exam Limitations: no limitations General appearance: alert, in no apparent distress Head exam: Present: atraumatic, normocephalic, normal inspection Eye exam: Present: normal appearance, PERRL, EOMI. Absent: scleral icterus, conjunctival injection, periorbital swelling ENT exam: Present: normal exam, mucous membranes moist Neck exam: Present: normal inspection. Absent: tenderness, meningismus, lymphadenopathy Respiratory exam: Present: wheezes. Absent: respiratory distress, rales, rhonchi, stridor Cardiovascular Exam: Present: regular rate, normal rhythm, normal heart sounds. Absent: systolic murmur, diastolic murmur, rubs, gallop, clicks GI/Abdominal exam: Present: soft, normal bowel sounds. Absent: distended, tenderness, guarding, rebound, rigid Extremities exam: Present: normal inspection, full ROM, normal capillary refill. Absent: tenderness, pedal edema, joint swelling, calf tenderness Back exam: Present: normal inspection Neurological exam: Present: alert, oriented X3, CN II-XII intact Psychiatric exam: Present: normal affect, normal mood Skin exam: Present: warm, dry, intact, normal color. Absent: rash Course Vital Signs 12/14/18 12/14/18 12/14/18 17:59 19:01 19:09 Temperature 98.2 F Pulse Rate 94 95 82 Respiratory 20 22 Rate Blood Pressure 128/84 120/77 O2 Sat by Pulse 98 93 L Oximetry 12/14/18 12/14/18 12/14/18 19:21 19:44 20:00 Temperature Pulse Rate 91 96 103 H Respiratory 22 26 H Rate Blood Pressure 126/76 147/97 O2 Sat by Pulse 96 97 Oximetry Medical Decision Making - Medical Decision Making Patient is still wheezing on examination after breathing treatments, IV magnesium and oral steroids. She will be admitted to the hospital. - Lab Data Result diagrams: 12/14/18 18:43 12/14/18 18:43 Lab Results 12/14/18 12/14/18 12/14/18 Range/Units 18:43 18:43 18:43 WBC 5.4 (3.8-10.6) k/uL RBC 4.57 (3.80-5.40) m/uL Hgb 13.5 (11.4-16.0) gm/dL Hct 39.9 (34.0-46.0) % MCV 87.4 (80.0-100.0) fL MCH 29.6 (25.0-35.0) pg MCHC 33.8 (31.0-37.0) g/dL RDW 13.2 (11.5-15.5) % Plt Count 258 (150-450) k/uL Neutrophils % 51 % Lymphocytes % 20 % Monocytes % 6 % Eosinophils % 18 % Basophils % 3 % Neutrophils # 2.8 (1.3-7.7) k/uL Lymphocytes # 1.1 (1.0-4.8) k/uL Monocytes # 0.3 (0-1.0) k/uL Eosinophils # 1.0 H (0-0.7) k/uL Basophils # 0.2 (0-0.2) k/uL PT (9.0-12.0) sec INR (<1.2) APTT (22.0-30.0) sec Sodium 138 (137-145) mmol/L Potassium 3.5 (3.5-5.1) mmol/L Chloride 104 (98-107) mmol/L Carbon Dioxide 26 (22-30) mmol/L Anion Gap 8 mmol/L BUN 9 (7-17) mg/dL Creatinine 0.67 (0.52-1.04) mg/dL Est GFR (CKD-EPI)AfAm >90 (>60 ml/min/1.73 sqM) Est GFR (CKD-EPI)NonAf >90 (>60 ml/min/1.73 sqM) Glucose 95 (74-99) mg/dL Calcium 10.2 (8.4-10.2) mg/dL Magnesium 1.7 (1.6-2.3) mg/dL Total Bilirubin 0.4 (0.2-1.3) mg/dL AST 37 H (14-36) U/L ALT 21 (9-52) U/L Alkaline Phosphatase 138 H (38-126) U/L Troponin I (0.000-0.034) ng/mL NT-Pro-B Natriuret Pep 144 pg/mL Total Protein 7.6 (6.3-8.2) g/dL Albumin 3.9 (3.5-5.0) g/dL 12/14/18 12/14/18 Range/Units 18:43 19:13 WBC (3.8-10.6) k/uL RBC (3.80-5.40) m/uL Hgb (11.4-16.0) gm/dL Hct (34.0-46.0) % MCV (80.0-100.0) fL MCH (25.0-35.0) pg MCHC (31.0-37.0) g/dL RDW (11.5-15.5) % Plt Count (150-450) k/uL Neutrophils % % Lymphocytes % % Monocytes % % Eosinophils % % Basophils % % Neutrophils # (1.3-7.7) k/uL Lymphocytes # (1.0-4.8) k/uL Monocytes # (0-1.0) k/uL Eosinophils # (0-0.7) k/uL Basophils # (0-0.2) k/uL PT 11.0 (9.0-12.0) sec INR 1.0 (<1.2) APTT 23.7 (22.0-30.0) sec Sodium (137-145) mmol/L Potassium (3.5-5.1) mmol/L Chloride (98-107) mmol/L Carbon Dioxide (22-30) mmol/L Anion Gap mmol/L BUN (7-17) mg/dL Creatinine (0.52-1.04) mg/dL Est GFR (CKD-EPI)AfAm (>60 ml/min/1.73 sqM) Est GFR (CKD-EPI)NonAf (>60 ml/min/1.73 sqM) Glucose (74-99) mg/dL Calcium (8.4-10.2) mg/dL Magnesium (1.6-2.3) mg/dL Total Bilirubin (0.2-1.3) mg/dL AST (14-36) U/L ALT (9-52) U/L Alkaline Phosphatase (38-126) U/L Troponin I <0.012 (0.000-0.034) ng/mL NT-Pro-B Natriuret Pep pg/mL Total Protein (6.3-8.2) g/dL Albumin (3.5-5.0) g/dL 12/14/18 20:04 Twelve-lead EKG shows ventricular rate 82 bpm, normal [place] interval and QRS complexes, no ST elevation or depression, interpreted by me as normal sinus rhythm. Disposition Clinical Impression: Asthma with acute exacerbation Disposition: ADMITTED IP TO THIS HOSP Condition: Fair Is patient prescribed a controlled substance at d/c from ED?: No Referrals: Eusebia De Luna DO [Primary Care Provider] - 1-2 days
[2018-12-14] MEDS ORDERED: ONDANSETRON 4 MG/2 ML VIAL IVP PRN (20:22)
[2018-12-14] MEDS ORDERED: NALOXONE 0.4 MG/ML 1 ML VIAL IV PRN (20:22)
[2018-12-14] MEDS ORDERED: MAG HYDROX/AL HYDROX/SIMETH 30 ML CUP PO PRN (20:22)
[2018-12-14] MEDS ORDERED: TEMAZEPAM 15 MG CAP PO PRN (20:22)
[2018-12-14] MEDS: ALBUTEROL NEBULIZED 2.5 MG/3 ML INHALATION PRN (22:29)
[2018-12-14 23:29] VITALS: BMI 29.8
[2018-12-15] MEDS: HYDROcodone/APAP 5-325MG 1 EACH TAB PO PRN ×2 (01:34→22:30)
[2018-12-15] MEDS: ALBUTEROL NEBULIZED 2.5 MG/3 ML INHALATION PRN ×3 (07:06→19:49)
[2018-12-15] MEDS ORDERED: predniSONE 10 MG TAB PO SCH (09:00)
[2018-12-15] MEDS ORDERED: guaiFENesin SYRUP 100MG/5ML 200 MG/10 ML CUP PO PRN (09:13)
[2018-12-15] MEDS ORDERED: PANTOPRAZOLE 40 MG TABLET PO SCH (09:15)
[2018-12-15] MEDS: predniSONE 20 MG TAB PO SCH (12:40)
--- NOTE | 2018-12-15 13:26 | P.HPIM ---
History of Present Illness 48-year-old the pleasant female came in with comments of cough and wheezing has been going on for last of 3-4 days. Patient doesn't have any history of asthma never smoked. Patient is wheezing on exam. She and is on 9 nonsteroidal anti- intermittent medicine to the nitroglycerin and steroid and long-term basis for fibromyalgia and rheumatoid arthritis. Patient is comparing of acid reflux like symptoms. She and is having cough without any significant sputum production. Chest x-ray did not show pneumonia patient denied any fever chills Review of Systems REVIEW OF SYSTEMS: CONSTITUTIONAL: No fever, no malaise, no fatigue. HEENT: No recent visual problems or hearing problems. Denied any sore throat. CARDIOVASCULAR: No chest pain, orthopnea, PND, no palpitations, no syncope. PULMONARY: As mentioned in HPI GASTROINTESTINAL: No diarrhea, no nausea, no vomiting, no abdominal pain. NEUROLOGICAL: No headaches, no weakness, no numbness. HEMATOLOGICAL: Denies any bleeding or petechiae. GENITOURINARY: Denies any burning micturition, frequency, or urgency. MUSCULOSKELETAL/RHEUMATOLOGICAL: Denies any joint pain, swelling, or any muscle pain. ENDOCRINE: Denies any polyuria or polydipsia. The rest of the 14-point review of systems is negative. 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 2014, shingles 03-19-18, tremors History of Any Multi-Drug Resistant Organisms: None Reported Past Surgical History: Hysterectomy Additional Past Surgical History / Comment(s): COLONOSCOPY, EGD, umbilical hernia repair Past Anesthesia/Blood Transfusion Reactions: No Reported Reaction Past Psychological History: Depression Smoking Status: Never smoker Past Alcohol Use History: Rare Past Drug Use History: None Reported - Past Family History Mother Family Medical History: Hypertension, Renal Disease, Thyroid Disorder Father Family Medical History: CVA/TIA, Hypertension Sister(s) Family Medical History: Hypertension Medications and Allergies Home Medications Medication Instructions Recorded Confirmed Type Hydrocodone/Acetaminophen [[place] 1 tab PO BID 10/13/18 12/14/18 History 5-325] Albuterol Sulfate [Proair Hfa] 2 puff INHALATION RT-Q6H PRN 12/14/18 12/14/18 History Ibuprofen/Diphenhydramine HCl 1 each PO HS PRN 12/14/18 12/14/18 History [Advil Pm Liqui-Gels] predniSONE 10 mg PO DAILY 12/14/18 12/14/18 History Allergies Allergy/AdvReac Type Severity Reaction Status Date / Time Penicillins Allergy Anaphylaxis Verified 12/14/18 21:24 tramadol Allergy shortness Verified 12/14/18 21:24 of breath codeine AdvReac Nausea & Uncoded 12/14/18 21:24 Vomiting Physical Exam Vitals: Vital Signs Temp Pulse Pulse Resp BP BP Pulse Ox 12/15/18 13:06 78 12/15/18 12:58 97 12/15/18 12:54 77 12/15/18 12:45 20 12/15/18 08:20 20 12/15/18 08:13 98.2 F 89 20 141/88 94 L 12/15/18 07:20 79 12/15/18 07:06 76 98 12/15/18 00:05 98.1 F 95 20 157/90 95 12/14/18 22:39 90 12/14/18 22:30 88 12/14/18 21:08 98.1 F 88 22 144/88 97 12/14/18 20:00 103 H 26 H 147/97 97 12/14/18 19:44 96 22 126/76 96 12/14/18 19:21 91 12/14/18 19:09 82 12/14/18 19:01 95 22 120/77 93 L 12/14/18 17:59 98.2 F 94 20 128/84 98 Intake and Output 12/14/18 12/15/18 12/15/18 22:59 06:59 14:59 Other: # Voids 1 1 Weight 90.718 kg 86.5 kg PHYSICAL EXAMINATION: GENERAL: The patient is alert and oriented x3, is in distress because of cough Well developed, well nourished. HEENT: Pupils are round and equally reacting to light. EOMI. No scleral icterus. No conjunctival pallor. Normocephalic, atraumatic. No pharyngeal erythema. No thyromegaly. CARDIOVASCULAR: S1 and S2 present. No murmurs, rubs, or gallops. PULMONARY: Moderate amount of expiratory wheezing fairly good air entry into bilateral lung narvaez. ABDOMEN: Soft, nontender, nondistended, normoactive bowel sounds. No palpable organomegaly. MUSCULOSKELETAL: No joint swelling or deformity. EXTREMITIES: No cyanosis, clubbing, or pedal edema. NEUROLOGICAL: Gross neurological examination did not reveal any focal deficits. SKIN: No rashes. Results CBC & Chem 7: 12/14/18 18:43 12/14/18 18:43 Labs: Abnormal Lab Results - Last 24 Hours (Table) 12/14/18 12/14/18 Range/Units 18:43 18:43 Eosinophils # 1.0 H (0-0.7) k/uL AST 37 H (14-36) U/L Alkaline Phosphatase 138 H (38-126) U/L Thrombosis Risk Factor Assmnt - Choose All That Apply Each Factor Represents 1 point: Age 41-60 years, Obesity (BMI >25) Each Risk Factor Represents 3 Points: History of DVT/PE Thrombosis Risk Factor Assessment Total Risk Factor Score: 5 Thrombosis Risk Factor Assessment Level: High Risk Assessment and Plan Plan: -Acute asthma exacerbation: Asthma exacerbation is mostly due to gases visual reflux disease and possible aspiration of gastric contents because of which I'll only start him on a low-dose of steroid Protonix twice a day. Ibuprofen is probably contributing to that type professional will be discontinued. Patient does not have any eosinophilia. -Cough secondary to ALLERGIC bronchitis and asthma -Fibromyalgia and rheumatoid arthritis patient probably will benefit from new biologic agents for her arthritis rather than long-term steroids. -Depression -DVT prophylaxis early ambulation
[2018-12-15] MEDS: guaiFENesin-DM 100-10MG/5ML 10 ML CUP PO PRN ×2 (17:43→23:43)
[2018-12-15] MEDS: PANTOPRAZOLE 40 MG/10 ML VIAL IVP SCH (20:51)
[2018-12-15] MEDS: ZOLPIDEM 5 MG TAB PO PRN (23:43)
[2018-12-16] MEDS: PANTOPRAZOLE 40 MG/10 ML VIAL IVP SCH (08:48)
[2018-12-16] MEDS: predniSONE 20 MG TAB PO SCH (08:48)
[2018-12-16] MEDS: ALBUTEROL NEBULIZED 2.5 MG/3 ML INHALATION PRN ×2 (09:45→21:36)
[2018-12-16] MEDS: guaiFENesin-DM 100-10MG/5ML 10 ML CUP PO PRN ×2 (09:48→22:50)
--- NOTE | 2018-12-16 10:48 | P.PN ---
Subjective 48-year-old the pleasant female came in with comments of cough and wheezing has been going on for last of 3-4 days. Patient doesn't have any history of asthma never smoked. Patient is wheezing on exam. She and is on 9 nonsteroidal anti-intermittent medicine to the nitroglycerin and steroid and long-term basis for fibromyalgia and rheumatoid arthritis. Patient is complaining of acid reflux like symptoms. She and is having cough without any significant sputum production. Chest x-ray did not show pneumonia patient denied any fever chills 12/16/2018 Still wheezing a bit. Not increasing the dose of steroids as her asthma exacerbation is secondary to gastroesophageal reflux disease. Patient will benefit from a high dose inhaled steroid because of last Prescription coverage patient cannot afford this medication and if patient doesn't use inhaled steroids that is a high risk for readmission, because today's Monday am not able to use [employer] funds for her inhaled steroid. Patient was asked not to take nonsteroidal anti-inflammatory since to continue with [place] and Tylenol on as- needed basis patient cannot tolerate tramadol. A she and is still wheezing a bit. Patient will be discharged on simethicone and Prilosec. Patient probably can be discharged tomorrow. Patient is still cough coughing Constitutional: Denied any fatigue denied any fever. Cardio vascular: denied any chest pain, palpitations Gastrointestinal denied any nausea vomiting Pulmonary: Denied any shortness of breath cough Neurologic denied any new focal deficits All inpatient medications were reviewed and appropriate changes in these medications as dictated in the interval history and assessment and plan. Objective - Vital Signs Vital signs: Vital Signs Temp 98.5 F 12/16/18 09:09 Pulse 82 12/16/18 09:45 Resp 20 12/16/18 09:09 BP 142/93 12/16/18 09:09 Pulse Ox 98 12/16/18 09:45 Intake & Output 12/15/18 12/16/18 12/16/18 18:59 06:59 18:59 Other: # Voids 1 1 - Exam PHYSICAL EXAMINATION: GENERAL: The patient is alert and oriented x3, is not in distress Well developed, well nourished. HEENT: Pupils are round and equally reacting to light. EOMI. No scleral icterus. No conjunctival pallor. Normocephalic, atraumatic. No pharyngeal erythema. No thyromegaly. CARDIOVASCULAR: S1 and S2 present. No murmurs, rubs, or gallops. PULMONARY: Minimal expiratory wheezing fairly good air entry into bilateral lung narvaez. ABDOMEN: Soft, nontender, nondistended, normoactive bowel sounds. No palpable organomegaly. MUSCULOSKELETAL: No joint swelling or deformity. EXTREMITIES: No cyanosis, clubbing, or pedal edema. NEUROLOGICAL: Gross neurological examination did not reveal any focal deficits. SKIN: No rashes. - Labs CBC & Chem 7: 12/14/18 18:43 12/14/18 18:43 Assessment and Plan Plan: -Acute asthma exacerbation: Asthma exacerbation is mostly due to gastroesophageal reflux disease. Patient doesn't have any history of asthma in the past -Cough secondary to ALLERGIC bronchitis and asthma -Fibromyalgia and rheumatoid arthritis patient probably will benefit from new biologic agents for her arthritis rather than long-term steroids. -Depression -DVT prophylaxis early ambulation
[2018-12-16] MEDS: PANTOPRAZOLE 40 MG TABLET PO SCH (17:11)
[2018-12-16] MEDS: HYDROcodone/APAP 5-325MG 1 EACH TAB PO PRN (21:45)
[2018-12-16] MEDS: ZOLPIDEM 5 MG TAB PO PRN (22:50)
[2018-12-17] MEDS: PANTOPRAZOLE 40 MG TABLET PO SCH (07:38)
[2018-12-17] MEDS: ALBUTEROL NEBULIZED 2.5 MG/3 ML INHALATION PRN (08:51)
[2018-12-17] MEDS: predniSONE 20 MG TAB PO SCH (09:13)
[2018-12-17 09:17] VITALS: BP 148/77; PULSE 75; TEMP 98.2
--- NOTE | 2018-12-17 09:20 | P.DS ---
Providers Date of admission: 12/14/18 20:22 Expected date of discharge: 12/17/18 Attending physician: Chas Chong MD Primary care physician: Eusebia De Luna - Discharge Diagnosis(es) (1) Asthma with acute exacerbation Current Visit: Yes Status: Acute (2) Bronchiolitis Current Visit: No Status: Acute Hospital Course: 48-year-old the pleasant female came in with comments of cough and wheezing has been going on for last of 3-4 days. Patient doesn't have any history of asthma never smoked. Patient is wheezing on exam. She and is on 9 nonsteroidal anti- intermittent medicine to the nitroglycerin and steroid and long-term basis for fibromyalgia and rheumatoid arthritis. Patient is complaining of acid reflux like symptoms. She and is having cough without any significant sputum production. Chest x-ray did not show pneumonia patient denied any fever chills 12/16/2018 Still wheezing a bit. Not increasing the dose of steroids as her asthma exacerbation is secondary to gastroesophageal reflux disease. Patient will benefit from a high dose inhaled steroid because of last Prescription coverage patient cannot afford this medication and if patient doesn't use inhaled steroids that is a high risk for readmission, because today's Monday am not able to use [employer] funds for her inhaled steroid. Patient was asked not to take nonsteroidal anti-inflammatory since to continue with [place] and Tylenol on as- needed basis patient cannot tolerate tramadol. A she and is still wheezing a bit. Patient will be discharged on simethicone and Prilosec. Patient probably can be discharged tomorrow. Patient is still cough coughing 12/17. On day of discharge she reported improvement in her breathing and cough better. Still having some wheezing. She will be discharged with symbicort and will continue prednisone daily. Discharge exam GENERAL: The patient is alert and oriented x3, is not in distress Well developed, well nourished. HEENT: Pupils are round and equally reacting to light. EOMI. No scleral icterus. No conjunctival pallor. Normocephalic, atraumatic. No pharyngeal erythema. No thyromegaly. CARDIOVASCULAR: S1 and S2 present. No murmurs, rubs, or gallops. PULMONARY: Minimal expiratory wheezing fairly good air entry into bilateral lung narvaez. ABDOMEN: Soft, nontender, nondistended, normoactive bowel sounds. No palpable organomegaly. MUSCULOSKELETAL: No joint swelling or deformity. EXTREMITIES: No cyanosis, clubbing, or pedal edema. NEUROLOGICAL: Gross neurological examination did not reveal any focal deficits. SKIN: No rashes. Patient Condition at Discharge: Fair Plan - Discharge Summary New Discharge Prescriptions: New Simethicone Chew [Mylicon Chew] 40 mg PO QID #60 chewable Omeprazole [PriLOSEC] 40 mg PO AC-BRKFST #30 capsule. Acetaminophen [Tylenol] 500 mg PO Q4-6H PRN #30 tab PRN Reason: Pain Budesonide-Formot 160-4.5 Mcg [Symbicort 160-4.5 Mcg Inhaler] 2 puff INHALATION BID #1 inhaler Continue Hydrocodone/Acetaminophen [[place] 5-325] 1 tab PO BID Albuterol Sulfate [Proair Hfa] 2 puff INHALATION RT-Q6H PRN PRN Reason: Shortness Of Breath predniSONE 10 mg PO DAILY #1 Discontinued Ibuprofen/Diphenhydramine HCl [Advil Pm Liqui-Gels] 1 each PO HS PRN PRN Reason: Mild Pain Discharge Medication List Hydrocodone/Acetaminophen [[place] 5-325] 1 tab PO BID 10/13/18 [History] Albuterol Sulfate [Proair Hfa] 2 puff INHALATION RT-Q6H PRN 12/14/18 [History] Acetaminophen [Tylenol] 500 mg PO Q4-6H PRN #30 tab 12/16/18 [Rx] Omeprazole [PriLOSEC] 40 mg PO AC-BRKFST #30 capsule. 12/16/18 [Rx] Simethicone Chew [Mylicon Chew] 40 mg PO QID #60 chewable 12/16/18 [Rx] predniSONE 10 mg PO DAILY #1 12/16/18 [Rx] Budesonide-Formot 160-4.5 Mcg [Symbicort 160-4.5 Mcg Inhaler] 2 puff INHALATION BID #1 inhaler 12/17/18 [Rx] Follow up Appointment(s)/Referral(s): Eusebia De Luna DO [Primary Care Provider] - 3 Days Discharge Disposition: HOME SELF-CARE
[2018-12-17 09:27] VITALS: RESP 20
[2018-12-17] MEDS: guaiFENesin-DM 100-10MG/5ML 10 ML CUP PO PRN (12:52)
[2018-12-17] MEDS: HYDROcodone/APAP 5-325MG 1 EACH TAB PO PRN (13:26)
== END 2018-12-17 14:02 | disposition home or self-care (01) ==
LOC: EC 17:52 → 6PED 20:22
PROVIDERS: ADMIT Family Medicine; ATTEND Family Medicine
DX: J45.901 Unspecified asthma with (acute) exacerbation (principal); J21.9 Acute bronchiolitis, unspecified; K21.9 Gastro-esophageal reflux disease without esophagitis; M79.7 Fibromyalgia; M06.9 Rheumatoid arthritis, unspecified; R25.1 Tremor, unspecified; D64.9 Anemia, unspecified; F32.9 Major depressive disorder, single episode, unspecified; D68.9 Coagulation defect, unspecified; E66.9 Obesity, unspecified; Z68.29 Body mass index [BMI] 29.0-29.9, adult; Z79.891 Long term (current) use of opiate analgesic; Z79.899 Other long term (current) drug therapy; Z88.0 Allergy status to penicillin; Z88.5 Allergy status to narcotic agent; Z86.711 Personal history of pulmonary embolism; Z86.19 Personal history of other infectious and parasitic diseases; Z90.710 Acquired absence of both cervix and uterus; Z82.49 Family history of ischemic heart disease and other diseases of the circulatory system; Z83.49 Family history of other endocrine, nutritional and metabolic diseases; Z82.3 Family history of stroke; Z84.1 Family history of disorders of kidney and ureter
CPT/HCPCS: 96375; 96376; 96365; 99285; 36415; 94640 ×7; 94760 ×2; 93005; 83880; 80053; 83735; 84484 ×2; 85025; 85610; 85730; 71046; G0378 ×4; J3475; J7512 ×5; C9113 ×2

== ENCOUNTER 2019-03-06 12:14 | Day surgery (SDC) | payer MEDICARE ==
[2019-03-06] MEDS ORDERED: LACTATED RINGERS 1,000 ML IV SCH (12:58)
[2019-03-06 13:03] VITALS: TEMP 97.4
[2019-03-06] MEDS ORDERED: LIDOCAINE 1% 20 ML VIAL (10MG/ML) FOR IV START INTRADERMA ONE (13:03)
[2019-03-06] MEDS ORDERED: LACTATED RINGERS 1,000 ML IV ONE (13:03)
[2019-03-06 13:12] LABS: Glucose,Whole Blood 96 mg/dL (75-99)
[2019-03-06] MEDS ORDERED: PROPOFOL 10 MG/ML 20 ML VIAL IV ONE (14:03)
--- NOTE | 2019-03-06 14:03 | P.GSHP ---
History of Present Illness H&P Date: 03/06/19 Chief Complaint: gastritis this a 48-year-old female with epigastric pain. Patient is today for EGD. 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 2014, shingles 03-19-18, tremors History of Any Multi-Drug Resistant Organisms: None Reported Past Surgical History: Hysterectomy Additional Past Surgical History / Comment(s): COLONOSCOPY, EGD, umbilical hernia repair Past Anesthesia/Blood Transfusion Reactions: No Reported Reaction Past Psychological History: Depression Smoking Status: Never smoker Past Alcohol Use History: Rare Past Drug Use History: None Reported - Past Family History Mother Family Medical History: Hypertension, Renal Disease, Thyroid Disorder Father Family Medical History: CVA/TIA, Hypertension Sister(s) Family Medical History: Hypertension Medications and Allergies Home Medications Medication Instructions Recorded Confirmed Type Hydrocodone/Acetaminophen [[place] 1 tab PO BID 10/13/18 03/06/19 History 5-325] Albuterol Sulfate [Proair Hfa] 2 puff INHALATION RT-Q6H PRN 12/14/18 03/06/19 History Acetaminophen [Tylenol] 500 mg PO Q4-6H PRN #30 tab 12/16/18 03/06/19 Rx Omeprazole [PriLOSEC] 40 mg PO AC-BRKFST #30 capsule. 12/16/18 03/06/19 Rx Simethicone Chew [Mylicon Chew] 40 mg PO QID #60 chewable 12/16/18 03/06/19 Rx Budesonide-Formot 160-4.5 Mcg 2 puff INHALATION BID #1 inhaler 12/17/18 03/06/19 Rx [Symbicort 160-4.5 Mcg Inhaler] predniSONE 10 mg PO DAILY #30 tab 12/17/18 03/06/19 Rx Allergies Allergy/AdvReac Type Severity Reaction Status Date / Time Penicillins Allergy Anaphylaxis Verified 12/14/18 21:24 tramadol Allergy shortness Verified 12/14/18 21:24 of breath codeine AdvReac Nausea & Uncoded 12/14/18 21:24 Vomiting Surgical - Exam Vital Signs Temp Pulse Resp BP Pulse Ox 97.4 F L 77 18 173/86 100 03/06/19 13:02 03/06/19 13:02 03/06/19 13:02 03/06/19 13:02 03/06/19 13:02 - General well developed, well nourished, no distress - Eyes PERRL - ENT normal pinna - Neck no masses - Respiratory normal expansion - Cardiovascular Rhythm: regular - Abdomen Abdomen: soft, non tender Assessment and Plan Assessment: epigastric pain. We'll perform EGD amount of her gastritis.
--- NOTE | 2019-03-06 14:13 | P.OP ---
Date of Procedure: 03/06/19 Preoperative Diagnosis: gastritis Postoperative Diagnosis: antral gastritis Mild esophagitis Sliding hiatal hernia Procedure(s) Performed: EGD Anesthesia: MAC Surgeon: Praveen Banegas Pathology: other (esophagus, antrum) Disposition: PACU Description of Procedure: the patient's placed on the endoscopy table in the lateral position. She received IV sedation. The gastroscope placed oropharynx passed in the esophagus into the stomach. Scope was placed through the pylorus. The first and second portion of the duodenum appeared normal. Scope was then brought back the antrum this is minimally inflamed. A biopsies performed. The scope was unretroflexed there was a small sliding hiatal hernia. The GE junction was at 38 7 is. The distal esophagus appeared mildly inflamed a biopsies performed. The proximal esophagus appeared normal. Scope was withdrawn for patient.
[2019-03-06 14:25] VITALS: RESP 16
[2019-03-06 14:40] VITALS: BP 146/90; PULSE 69
== END 2019-03-06 16:40 | disposition home or self-care (01) ==
LOC: OR 12:14
PROVIDERS: ATTEND Surgery
DX: K29.50 Unspecified chronic gastritis without bleeding (principal); D64.9 Anemia, unspecified; K20.9 Esophagitis, unspecified; K44.9 Diaphragmatic hernia without obstruction or gangrene; M06.9 Rheumatoid arthritis, unspecified; Z82.49 Family history of ischemic heart disease and other diseases of the circulatory system; Z88.0 Allergy status to penicillin; Z88.5 Allergy status to narcotic agent; Z88.8 Allergy status to other drugs, medicaments and biological substances; Z79.891 Long term (current) use of opiate analgesic; Z79.899 Other long term (current) drug therapy; M79.7 Fibromyalgia; F32.9 Major depressive disorder, single episode, unspecified
CPT/HCPCS: 88305; 43239; J2704

== ENCOUNTER → 2019-03-14 | Outpatient (CLI) | payer MEDICARE ==
--- NOTE | 2019-03-14 16:00 | NM ---
Nuclear medicine hepatobiliary scan. HISTORY: Pain. DOSAGE: The patient received 1.7 micrograms of CCK and 4.7 mCi of Technetium 99m Choletec. FINDINGS: There is normal hepatic extraction. The gallbladder is seen by 20 minutes. There is bilia ry to bowel clearance by 25 minutes. Ejection fraction is 52%. IMPRESSION: 1. Normal uptake of radiotracer within the gallbladder with no diagnostic evidence of cholecystitis. Ejection fraction is normal. 2. Heterogeneous uptake involving the liver may be artifactual could be correlated with ultrasound as clinically warranted.
== END | disposition home or self-care (01) ==
LOC: RADNMMAIN 12:55
PROVIDERS: ATTEND Surgery
DX: K81.1 Chronic cholecystitis (principal)
CPT/HCPCS: 78227

== ENCOUNTER 2019-04-15 18:27 | Observation (INO) | payer MEDICARE ==
[2019-04-15 18:53] VITALS: RESP 18
[2019-04-15] MEDS ORDERED: HYDROmorphone 0.5 MG/0.5 ML SYRINGE IVP STA (19:37)
[2019-04-15] MEDS ORDERED: KETOROLAC 30 MG/ML 1 ML VIAL IVP STA (19:37)
--- NOTE | 2019-04-15 19:41 | ED ---
General Adult HPI - General Chief complaint: Chest Pain Stated complaint: chest pain Time Seen by Provider: 04/15/19 19:30 Source: patient, RN notes reviewed Mode of arrival: ambulatory Limitations: no limitations - History of Present Illness Initial comments: 49-year-old female history of fibromyalgia and rheumatoid arthritis presenting for evaluation of right elbow pain. Patient has had worsening pain in the right elbow over the past one week. She states any movement is excruciatingly painful. She denies fevers. She is currently on 20 mg of prednisone daily with history of rheumatoid arthritis. She's never had pain in this elbow prior. Sec ond complaint is central chest pain and tightness which is been present also for several days. She attributes this to her fibromyalgia. Denies significant dyspnea. Denies radiating symptoms to her pain. She complains of diffuse joint pain throughout. No fever. No abdominal pain. No vomiting. - Related Data Home Medications Medication Instructions Recorded Confirmed Hydrocodone/Acetaminophen [[place] 1 tab PO BID 10/13/18 03/06/19 5-325] Albuterol Sulfate [Proair Hfa] 2 puff INHALATION RT-Q6H PRN 12/14/18 03/06/19 Previous Rx's Medication Instructions Recorded Acetaminophen [Tylenol] 500 mg PO Q4-6H PRN #30 tab 12/16/18 Omeprazole [PriLOSEC] 40 mg PO AC-BRKFST #30 capsule. 12/16/18 Simethicone Chew [Mylicon Chew] 40 mg PO QID #60 chewable 12/16/18 Budesonide-Formot 160-4.5 Mcg 2 puff INHALATION BID #1 inhaler 12/17/18 [Symbicort 160-4.5 Mcg Inhaler] predniSONE 10 mg PO DAILY #30 tab 12/17/18 Allergies Allergy/AdvReac Type Severity Reaction Status Date / Time Penicillins Allergy Anaphylaxis Verified 12/14/18 21:24 tramadol Allergy shortness Verified 12/14/18 21:24 of breath codeine AdvReac Nausea & Uncoded 12/14/18 21:24 Vomiting Review of Systems ROS Statement: Those systems with pertinent positive or pertinent negative responses have been documented in the HPI. ROS Other: All systems not noted in ROS Statement are negative. 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 2014, shingles 03-19-18, tremors History of Any Multi-Drug Resistant Organisms: None Reported Past Surgical History: Hysterectomy Additional Past Surgical History / Comment(s): COLONOSCOPY, EGD, umbilical hernia repair Past Anesthesia/Blood Transfusion Reactions: No Reported Reaction Past Psychological History: Depression Smoking Status: Never smoker Past Alcohol Use History: Rare Past Drug Use History: None Reported - Past Family History Mother Family Medical History: Hypertension, Renal Disease, Thyroid Disorder Father Family Medical History: CVA/TIA, Hypertension Sister(s) Family Medical History: Hypertension General Exam Limitations: no limitations General appearance: alert, in no apparent distress Head exam: Present: atraumatic, normocephalic Eye exam: Present: normal appearance, PERRL ENT exam: Present: normal exam Neck exam: Present: normal inspection. Absent: tenderness, meningismus Respiratory exam: Present: normal lung sounds bilaterally. Absent: respiratory distress, wheezes Cardiovascular Exam: Present: regular rate, normal rhythm GI/Abdominal exam: Present: soft. Absent: distended, tenderness, guarding Extremities exam: Present: joint swelling. Absent: full ROM (Decreased range of motion right elbow, warmth and suspect joint effusion) Neurological exam: Present: alert, oriented X3, CN II-XII intact. Absent: motor sensory deficit Psychiatric exam: Present: normal affect, normal mood Skin exam: Present: warm, dry, intact. Absent: cyanosis, diaphoretic Course Vital Signs 04/15/19 04/15/19 18:51 19:53 Temperature 98.5 F 98 F Pulse Rate 84 72 Respiratory 18 18 Rate Blood Pressure 131/83 140/86 O2 Sat by Pulse 97 96 Oximetry EKG Findings - EKG Comments: EKG Findings:: EKG: Normal sinus rhythm, LVH, T-wave inversion in lead 3 and aVF, rate of 73, PA interval 118, QRS duration 82, QTC 398, T-wave inversions seen previously on EKG in November and September 2018. Medical Decision Making - Medical Decision Making 49-year-old female presenting with 2 complaints, first complaint is right elbow pain and swelling. On exam the patient has severely decreased range of motion at the right elbow secondary to pain. She has joint effusion, mild erythema and warmth to this joint. Remainder of the right upper extremity is unremarkable. Second complaint of chest pain which is a central chest tightness. EKG shows some T-wave inversions which are stable for this patient. Chest x-ray negative for acute cardiopulmonary disease. Patient is a CBC, CMP are unremarkable. Initial troponin is negative. Regarding the chest pain the patient will be kept in observation for serial cardiac enzymes, telemetry, and cardiology consultation. I did discuss admission with the patient's primary care physician Dr. Chong. Regarding the patient's right elbow pain and effusion. X-ray shows significant arthritis of the right elbow, effusion on x-ray. Have a low suspicion for septic arthritis in this afebrile patient with a normal white blood count. She has a minimally elevated CRP at 14.5. I suspect an inflammatory arthritis. She is treated with pain control and steroids. I did discuss case with Dr. Damon covering for orthopedics, will aspirate this joint tomorrow morning, will evaluate the patient in consultation. Recommends immobilization at this time. She is placed in a sling in the emergency department. - Lab Data Result diagrams: 04/15/19 20:00 04/15/19 20:00 Lab Results 04/15/19 04/15/19 04/15/19 Range/Units 20:00 20:00 20:00 WBC 7.4 (3.8-10.6) k/uL RBC 4.84 (3.80-5.40) m/uL Hgb 13.9 (11.4-16.0) gm/dL Hct 44.6 (34.0-46.0) % MCV 92.2 (80.0-100.0) fL MCH 28.7 (25.0-35.0) pg MCHC 31.1 (31.0-37.0) g/dL RDW 13.3 (11.5-15.5) % Plt Count 284 (150-450) k/uL Neutrophils % 62 % Lymphocytes % 29 % Monocytes % 5 % Eosinophils % 3 % Basophils % 0 % Neutrophils # 4.6 (1.3-7.7) k/uL Lymphocytes # 2.1 (1.0-4.8) k/uL Monocytes # 0.4 (0-1.0) k/uL Eosinophils # 0.2 (0-0.7) k/uL Basophils # 0.0 (0-0.2) k/uL PT (9.0-12.0) sec INR (<1.2) APTT (22.0-30.0) sec Sodium 138 (137-145) mmol/L Potassium 4.0 (3.5-5.1) mmol/L Chloride 106 (98-107) mmol/L Carbon Dioxide 26 (22-30) mmol/L Anion Gap 6 mmol/L BUN 9 (7-17) mg/dL Creatinine 0.72 (0.52-1.04) mg/dL Est GFR (CKD-EPI)AfAm >90 (>60 ml/min/1.73 sqM) Est GFR (CKD-EPI)NonAf >90 (>60 ml/min/1.73 sqM) Glucose 98 (74-99) mg/dL Plasma Lactic Acid Gerber (0.7-2.0) mmol/L Calcium 9.6 (8.4-10.2) mg/dL Magnesium 2.1 (1.6-2.3) mg/dL Total Bilirubin 0.4 (0.2-1.3) mg/dL AST 22 (14-36) U/L ALT 15 (4-34) U/L Alkaline Phosphatase 163 H (38-126) U/L Troponin I (0.000-0.034) ng/mL C-Reactive Protein 14.5 H (<10.0) mg/L NT-Pro-B Natriuret Pep 93 pg/mL Total Protein 7.3 (6.3-8.2) g/dL Albumin 4.1 (3.5-5.0) g/dL 04/15/19 04/15/19 04/15/19 Range/Units 20:00 20:00 20:00 WBC (3.8-10.6) k/uL RBC (3.80-5.40) m/uL Hgb (11.4-16.0) gm/dL Hct (34.0-46.0) % MCV (80.0-100.0) fL MCH (25.0-35.0) pg MCHC (31.0-37.0) g/dL RDW (11.5-15.5) % Plt Count (150-450) k/uL Neutrophils % % Lymphocytes % % Monocytes % % Eosinophils % % Basophils % % Neutrophils # (1.3-7.7) k/uL Lymphocytes # (1.0-4.8) k/uL Monocytes # (0-1.0) k/uL Eosinophils # (0-0.7) k/uL Basophils # (0-0.2) k/uL PT 10.1 (9.0-12.0) sec INR 1.0 (<1.2) APTT 22.9 (22.0-30.0) sec Sodium (137-145) mmol/L Potassium (3.5-5.1) mmol/L Chloride (98-107) mmol/L Carbon Dioxide (22-30) mmol/L Anion Gap mmol/L BUN (7-17) mg/dL Creatinine (0.52-1.04) mg/dL Est GFR (CKD-EPI)AfAm (>60 ml/min/1.73 sqM) Est GFR (CKD-EPI)NonAf (>60 ml/min/1.73 sqM) Glucose (74-99) mg/dL Plasma Lactic Acid Gerber 0.9 (0.7-2.0) mmol/L Calcium (8.4-10.2) mg/dL Magnesium (1.6-2.3) mg/dL Total Bilirubin (0.2-1.3) mg/dL AST (14-36) U/L ALT (4-34) U/L Alkaline Phosphatase (38-126) U/L Troponin I <0.012 (0.000-0.034) ng/mL C-Reactive Protein (<10.0) mg/L NT-Pro-B Natriuret Pep pg/mL Total Protein (6.3-8.2) g/dL Albumin (3.5-5.0) g/dL Disposition Clinical Impression: Chest pain, Effusion of right elbow, Arthritis of elbow, right Disposition: ADMITTED IP TO THIS [facility] Condition: Stable Is patient prescribed a controlled substance at d/c from ED?: No Referrals: Chas Chong MD [Primary Care Provider] - 1-2 days Decision to Admit Reason: Admit from EC Decision Date: 04/15/19 Decision Time: 21:00
[2019-04-15 20:17] LABS: Basophils % (A) 0 %; Eosinophils # (A) 0.2 k/uL (0-0.7); Eosinophils % (A) 3 %; HCT 44.6 % (34.0-46.0); HGB 13.9 gm/dL (11.4-16.0); Lymphocytes # (A) 2.1 k/uL (1.0-4.8); Lymphocytes % (A) 29 %; MCH 28.7 pg (25.0-35.0); MCHC 31.1 g/dL (31.0-37.0); MCV 92.2 fL (80.0-100.0); Mean Platelet Volume 8.3; Monocytes # (A) 0.4 k/uL (0-1.0); Monocytes % (A) 5 %; Neutrophils # (A) 4.6 k/uL (1.3-7.7); Neutrophils % (A) 62 %; Platelet Count 284 k/uL (150-450); RBC 4.84 m/uL (3.80-5.40); RDW 13.3 % (11.5-15.5); WBC 7.4 k/uL (3.8-10.6)
[2019-04-15 20:25] LABS: Partial Thromboplastin Time 22.9 sec (22.0-30.0); Prothrombin Time 10.1 sec (9.0-12.0)
[2019-04-15 20:32] LABS: ALT 15 U/L (4-34); AST 22 U/L (14-36); African American GFR (CKD) >90 (>60 ml/min/1.73 sqM); Albumin 4.1 g/dL (3.5-5.0); Alkaline Phosphatase 163 U/L (38-126); Anion Gap 6 mmol/L; Blood Urea Nitrogen 9 mg/dL (7-17); C Reactive Protein 14.5 mg/L (<10.0); Calcium 9.6 mg/dL (8.4-10.2); Carbon Dioxide 26 mmol/L (22-30); Chloride 106 mmol/L (98-107); Glucose 98 mg/dL (74-99); Magnesium 2.1 mg/dL (1.6-2.3); Non-African American GFR(CKD) >90 (>60 ml/min/1.73 sqM); Sodium 138 mmol/L (137-145); Total Bilirubin 0.4 mg/dL (0.2-1.3); Total Protein 7.3 g/dL (6.3-8.2)
--- NOTE | 2019-04-15 20:46 | XR ---
EXAMINATION TYPE: XR chest 2V DATE OF EXAM: 04/15/2019 COMPARISON: Prior chest x-ray 12/14/2018 HISTORY: Chest pain TECHNIQUE: Frontal and lateral views of the chest are obtained. FINDINGS: There is no focal air space opacity, pleural effusion, or pneumothorax seen. The cardiac silhouette size is within normal limits. The osseous structures are intact. IMPRESSION: No acute cardiopulmonary process.
[2019-04-15] MEDS ORDERED: DEXAMETHASONE SOD PHOSPHATE 10 MG/ML 1 ML VIAL IV STA (20:51)
[2019-04-15] MEDS ORDERED: HYDROmorphone 1 MG/ML 1 ML SYRINGE IVP STA (20:51)
[2019-04-15] MEDS ORDERED: ASPIRIN 325 MG TAB PO STA (20:55)
[2019-04-15] MEDS ORDERED: HYDROmorphone 0.5 MG/0.5 ML SYRINGE IVP PRN (20:55)
[2019-04-15] MEDS ORDERED: KETOROLAC 30 MG/ML 1 ML VIAL IVP PRN (20:55)
[2019-04-15] MEDS ORDERED: NALOXONE 0.4 MG/ML 1 ML VIAL IV PRN (20:55)
[2019-04-15] MEDS ORDERED: ACETAMINOPHEN TAB 325 MG TAB PO PRN (20:55)
--- NOTE | 2019-04-16 08:35 | XR ---
Right elbow HISTORY: Pain and swelling, limited range of motion 3 views the right elbow There is soft tissue swelling. Joint effusion is present. There is joint space loss and marginal spur ring. Bone mineralization is reduced. There is marginal spurring. IMPRESSION: Osteoarthritis, joint effusion, osteopenia. Correlate for cellulitis. Follow-up suggested .
--- NOTE | 2019-04-16 09:51 | P.CNOR ---
History of Present Illness - [facility] Consult date: 04/16/19 History of present illness: This patient is a 49-year-old female with a past medical history of fibromyalgia and rheumatoid arthritis that presented to [facility] emergency department on 04/15/2019 due to chest pain and right elbow pain. Patient was admitted under the care of internal medicine with consult with orthopedic surgery in regards to her right elbow pain. Patient states there is no injury that she is aware of. She began to spread pain in the right elbow about a week ago. She states the pain progressively worsened over the past week, along with swelling. She states the pain was so severe she could not flex or extend the elbow without pain. She denies history of similar elbow pain. She notes she has experienced similar episodes in her bilateral knees in the past. Patient's elbow was placed into a sling and was given a dose of Decadron in the emergency department. Patient states her pain has significantly improved since being given steroids and being immobilized. She is able to move the elbow without pain this morning. She denies fevers, chills, nausea, vomiting, feelings of generalized malaise. Patient states besides the elbow pain, she has been feeling well. Vital signs stable. Past Medical History Past Medical History: Asthma, Fibromyalgia, Pulmonary Embolus (PE), Rheumatoid Arthritis (RA) Additional Past Medical History / Comment(s): Anemia, clotting disorder-blood clots in lungs diagnosed October 2014, bronchitis, shingles 03-19-18, bilateral hand tremors, low back pain. History of Any Multi-Drug Resistant Organisms: None Reported Past Surgical History: Hernia Repair, Hysterectomy Additional Past Surgical History / Comment(s): COLONOSCOPY, EGD, umbilical hernia repair-post op infection with lengthy hospitalization/surgical intervention. Past Anesthesia/Blood Transfusion Reactions: No Reported Reaction Smoking Status: Never smoker - Past Family History Mother Family Medical History: Hypertension, Renal Disease, Thyroid Disorder Additional Family Medical History / Comment(s): Mother is alive Father Family Medical History: CVA/TIA, Hypertension Additional Family Medical History / Comment(s): Father is alive Sister(s) Family Medical History: Hypertension Medications and Allergies Home Medications Medication Instructions Recorded Confirmed Type Hydrocodone/Acetaminophen [[place] 1 tab PO BID 10/13/18 04/15/19 History 5-325] Acetaminophen/Diphenhydramine 2 tab PO HS 04/15/19 04/15/19 History [Tylenol Pm Ex-Strength Caplet] Budesonide-Formot 160-4.5 Mcg 2 puff INHALATION RT-DAILY 04/15/19 04/15/19 History [Symbicort 160-4.5 Mcg Inhaler] predniSONE [Deltasone] 20 mg PO DAILY 04/15/19 04/15/19 History Allergies Allergy/AdvReac Type Severity Reaction Status Date / Time Penicillins Allergy Anaphylaxis Verified 04/15/19 21:13 tramadol Allergy shortness Verified 04/15/19 21:13 of breath codeine AdvReac Nausea & Uncoded 12/14/18 21:24 Vomiting Physical Examination On examination, the patient is sitting in bed in no apparent distress. She is alert and oriented 3. Her head appears atraumatic and normocephalic. Her breathing appears nonlabored. On inspection of the right elbow, there is moderate swelling. There is no overlying erythema, ecchymosis, or skin d iscoloration. There is mild pain on palpation in the elbow. There is no pain on palpation of the hand, wrist, forearm, humerus, or shoulder. There is no pain with passive range of motion of the elbow, although motion becomes painful and maximum flexion and extension. Motor and sensory function appear to be intact of the right upper extremity. Radial pulse palpable, with brisk capillary refill distally. Results Right elbow x-ray 04/15/2019: Moderate arthritis of the elbow. Joint effusion. No acute fractures. - Labs Labs: Abnormal Lab Results - Last 24 Hours (Table) 04/15/19 Range/Units 20:00 Alkaline Phosphatase 163 H (38-126) U/L C-Reactive Protein 14.5 H (<10.0) mg/L H & H 04/15/19 Range/Units 20:00 Hgb 13.9 (11.4-16.0) gm/dL Hct 44.6 (34.0-46.0) % Coagulation 04/15/19 Range/Units 20:00 INR 1.0 (<1.2) Result Diagrams: 04/15/19 20:00 04/15/19 20:00 Assessment and Plan Assessment: Right elbow pain, most likely related to an arthritic flare. Plan: - I discussed the clinical and imaging findings with the patient. We have low concern for septic arthritis at this time. We will continue to observe the devora durham's response to anti-inflammatory medications, and we will attempt an aspiration of the elbow if her condition fails to improve or worsens. - Recommended continued immobilization of the right elbow with the current sling. - Pain management per primary team. Patient discussed with Dr. Damon.
[2019-04-16] MEDS ORDERED: DOBUTamine DRIP for NUC MED 500 MG in DEXTROSE/WATER 1 250ML.BAG IV ONE (10:00)
--- NOTE | 2019-04-16 10:52 | P.CRDCN ---
History of Present Illness History of present illness: HISTORY OF PRESENTING ILLNESS This is a pleasant 49-year-old female past medical history significant for asthma, fibromyalgia, rheumatoid arthritis and history of pulmonary embolism 2015. 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 We have been asked to see in consultation for chest pain. She has been experiencing pain in the right elbow and upper arm for the previous 1-2 weeks. She has been started on PO steroids per her PCP with no significant improvement. She has now developed an intermittent pain in the mid-sternal region described as a tightness. There is no radiation to the left arm, through to the back, into the neck or jaw. She denies associated dizziness, shortness of breath, palpitations, nausea, vomiting or diaphoresis. DIAGNOSTICS EKG reveals sinus mechanism with T-wave inversions in the inferior leads and LVH. Chronic compared to old EKGs. Chest xray negative for an acute cardiopulmonary process. Laboratory reviewed, CBC unremarkable, d-dimer 0.57, sodium 138, potassium 4, creatinine 0.7 to, magnesium 2.1, cardiac enzymes negative 3, CRP 14.5, NT proBNP 93. She takes no daily cardiac medications. REVIEW OF SYSTEMS At the time of my exam: CONSTITUTIONAL: Denies fever or chills. CARDIOVASCULAR: Denies chest pain, shortness of breath, orthopnea, PND or palpitations. RESPIRATORY: Denies cough. GASTROINTESTINAL: Denies abdominal pain, diarrhea, constipation, nausea or vom iting. MUSCULOSKELETAL: Denies myalgias. NEUROLOGIC: Denies numbness, tingling or weakness. ENDOCRINE: Denies fatigue, weight change, polydipsia or polyurina. GENITOURINARY: Denies burning, hematuria or urgency with micturation. HEMATOLOGIC: Denies history of anemia or bleeding. PHYSICAL EXAMINATION Blood pressure 133/86 heart rate 76 afebrile and maintaining oxygen saturation on room air. CONSTITUTIONAL: No apparent distress. HEENT: Head is normocephalic. Pupils are equal, round. Sclerae anicteric. Mucous membranes of the mouth are moist. No JVD. No carotid bruit. CHEST EXAMINATION: Lungs are clear to auscultation. No chest wall tenderness is noted on palpation or with deep breathing. HEART EXAMINATION: Regular rate and rhythm. S1, S2 heard. No murmurs, gallops or rub. ABDOMEN: Soft, nontender. Positive bowel sounds. EXTREMITIES: 2+ peripheral pulses, no lower extremity edema and no calf tenderness. Sling in place to the right upper extremity. NEUROLOGIC EXAMINATION: Patient is awake, alert and oriented x3. ASSESSMENT Chest pain, atypical. An acute coronary event has been ruled out. Right upper extremity pain and swelling Fibromyalgia History of pulmonary embolism PLAN An acute coronary event has been ruled out. Given baseline EKG abnormalities recommend proceeding with echocardiography and stress testing. If abnormal we will consider coronary angiography. Ongoing medical management of right arm pain and swelling. Thank you kindly for this consultation. Nurse Practitioner note has been reviewed, I agree with a documented findings and plan of care. Patient was seen and examined. 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 2014, shingles 03-19-18, tremors History of Any Multi-Drug Resistant Organisms: None Reported Past Surgical History: Hysterectomy Additional Past Surgical History / Comment(s): COLONOSCOPY, EGD, umbilical hernia repair Past Anesthesia/Blood Transfusion Reactions: No Reported Reaction Past Psychological History: Depression Smoking Status: Never smoker Past Alcohol Use History: Rare Past Drug Use History: None Reported - Past Family History Mother Family Medical History: Hypertension, Renal Disease, Thyroid Disorder Father Family Medical History: CVA/TIA, Hypertension Sister(s) Family Medical History: Hypertension Medications and Allergies Home Medications Medication Instructions Recorded Confirmed Type Hydrocodone/Acetaminophen [[place] 1 tab PO BID 10/13/18 04/15/19 History 5-325] Acetaminophen/Diphenhydramine 2 tab PO HS 04/15/19 04/15/19 History [Tylenol Pm Ex-Strength Caplet] Budesonide-Formot 160-4.5 Mcg 2 puff INHALATION RT-DAILY 04/15/19 04/15/19 History [Symbicort 160-4.5 Mcg Inhaler] predniSONE [Deltasone] 20 mg PO DAILY 04/15/19 04/15/19 History Allergies Allergy/AdvReac Type Severity Reaction Status Date / Time Penicillins Allergy Anaphylaxis Verified 04/15/19 21:13 tramadol Allergy shortness Verified 04/15/19 21:13 of breath codeine AdvReac Nausea & Uncoded 12/14/18 21:24 Vomiting Physical Exam Vitals: Vital Signs Temp Pulse Pulse Resp BP Pulse Ox 04/16/19 07:34 76 04/16/19 07:00 98.1 F 76 18 133/86 98 04/15/19 21:00 80 18 145/94 98 04/15/19 19:53 98 F 72 18 140/86 96 04/15/19 18:51 98.5 F 84 18 131/83 97 Intake and Output 04/15/19 04/16/19 04/16/19 22:59 06:59 14:59 Other: Weight 86.183 kg Results 04/15/19 20:00 04/15/19 20:00 Cardiac Enzymes 04/15/19 04/15/19 04/16/19 Range/Units 20:00 20:00 01:27 AST 22 (14-36) U/L Troponin I <0.012 <0.012 (0.000-0.034) ng/mL Coagulation 04/15/19 Range/Units 20:00 PT 10.1 (9.0-12.0) sec APTT 22.9 (22.0-30.0) sec CBC 04/15/19 Range/Units 20:00 WBC 7.4 (3.8-10.6) k/uL RBC 4.84 (3.80-5.40) m/uL Hgb 13.9 (11.4-16.0) gm/dL Hct 44.6 (34.0-46.0) % Plt Count 284 (150-450) k/uL Comprehensive Metabolic Panel 04/15/19 Range/Units 20:00 Sodium 138 (137-145) mmol/L Potassium 4.0 (3.5-5.1) mmol/L Chloride 106 (98-107) mmol/L Carbon Dioxide 26 (22-30) mmol/L BUN 9 (7-17) mg/dL Creatinine 0.72 (0.52-1.04) mg/dL Glucose 98 (74-99) mg/dL Calcium 9.6 (8.4-10.2) mg/dL AST 22 (14-36) U/L ALT 15 (4-34) U/L Alkaline Phosphatase 163 H (38-126) U/L Total Protein 7.3 (6.3-8.2) g/dL Albumin 4.1 (3.5-5.0) g/dL Current Medications Generic Name Dose Route Start Last Admin Trade Name Freq PRN Reason Stop Dose Admin Acetaminophen 650 mg 04/15/19 20:55 Tylenol Tab PO Q6HR PRN Mild Pain or Fever > 100.5 Hydromorphone HCl 0.5 mg 04/15/19 20:55 Dilaudid IVP Q3HR PRN Moderate Pain Ketorolac Tromethamine 15 mg 04/15/19 20:55 Toradol IVP 04/20/19 20:56 Q6HR PRN Moderate Pain Naloxone HCl 0.2 mg 04/15/19 20:55 Narcan IV Q2M PRN Opioid Reversal Intake and Output 04/15/19 04/16/19 04/16/19 22:59 06:59 14:59 Other: Weight 86.183 kg 04/15/19 20:00 04/15/19 20:00
[2019-04-16] MEDS: amLODIPine 5 MG TAB PO SCH (14:30)
[2019-04-16] MEDS ORDERED: methylPREDNISolone SOD SUCCI 40 MG/ML 1 ML VIAL IV STA (15:38)
--- NOTE | 2019-04-16 19:23 | ECHOF ---
Referral Reason:cp MEASUREMENTS -------- HEIGHT: 170.2 cm WEIGHT: 86.2 kg BP: 133/86 RVIDd: 3.7 cm (< 3.3) IVSd: 1.2 cm (0.6 - 1.1) LVIDd: 4.3 cm (3.9 - 5.3) LVPWd: 1.3 cm (0.6 - 1.1) IVSs: 1.8 cm LVIDs: 2.9 cm LVPWs: 1.6 cm LA Diam: 2.9 cm (2.7 - 3.8) LAESV Index (A-L): 18.79 ml/m Ao Diam: 3.1 cm (2.0 - 3.7) AV Cusp: 2.1 cm (1.5 - 2.6) MV EXCURSION: 19.436 mm (> 18.000) MV EF SLOPE: 99 mm/s (70 - 150) EPSS: 0.3 cm MV E Evgeny: 0.53 m/s MV DecT: 251 ms MV A Evgeny: 0.58 m/s MV E/A Ratio: 0.93 FINDINGS -------- Sinus rhythm. This was a technically good study. The left ventricular size is normal. There is mild concentric left ventricular hypertrophy. Overa ll left ventricular systolic function is normal with, an EF between 55 - 60 %. The diastolic fillin g pattern is normal for the age of the patient 9.16. The right ventricle is normal in size. The left atrial size is normal. The right atrial size is normal. The aortic valve is trileaflet, and appears structurally normal. No aortic stenosis or regurgitation. Mild mitral annular calcification present. Mild mitral regurgitation is present. Mild tricuspid regurgitation present. Right ventricular systolic pressure is normal at < 35 mmHg. There is no evidence of pulmonary hypertension. There is no pulmonic regurgitation present. The aortic root size is normal. There is no pericardial effusion. CONCLUSIONS -------- 1. Sinus rhythm. 2. This was a technically good study. 3. The left ventricular size is normal. 4. There is mild concentric left ventricular hypertrophy. 5. Overall left ventricular systolic function is normal with, an EF between 55 - 60 %. 6. The diastolic filling pattern is normal for the age of the patient 9.16 7. The right ventricle is normal in size. 8. The left atrial size is normal. 9. The right atrial size is normal. 10. The aortic valve is trileaflet, and appears structurally normal. No aortic stenosis or regurgitat ion. 11. Mild mitral annular calcification present. 12. Mild mitral regurgitation is present. 13. Mild tricuspid regurgitation present. 14. Right ventricular systolic pressure is normal at < 35 mmHg. 15. There is no evidence of pulmonary hypertension. 16. There is no pulmonic regurgitation present. 17. The aortic root size is normal. 18. There is no pericardial effusion. SIGN MANUFACTURER: Helen Mai RDCS
--- NOTE | 2019-04-16 20:17 | P.STRESS ---
- Stress Test Note Stress Test Results/Findings: Exam Performed: dobutamine stress echo Exam Date: 04/16/19 Reason for Exam: CHEST PAIN Height: 5 ft 7 in Weight: 86.18 kg Protocol: DSE Stage: 3 Duration of Exercise: 7:30 Resting Heart Rate: 70 Resting Blood Pressure: 160/91 Maximum Achieved Heart Rate: 147 Maximum Achieved Blood Pressure: 188/62 85% PMHR: 145 100% PMHR: 170 METS: NA Technologist Comment: Stress Test Results/Findings: This is a 49-year-old female with history of hypertension and COPD being evaluated for cardiac status. Stress data: Baseline EKG showed sinus rhythm with normal TX interval and QRS duration and nonspecific ST-T changes. Blood pressure at rest is 160/91, pulse rate of 70. A standard dose of dobutamine initiated at 10 mics and was titrated to 30 mics, achieving a maximum rate of 147 with a blood pressure 188/62. EKGs taken during and after the dobutamine infusion did not reveal any change of is chemia. Echo data: Baseline echo images show normal wall motion and thickening. Exercise echo images showed augmentation of wall motion and thickening in all the segments.
--- NOTE | 2019-04-16 23:30 | P.HPIM ---
History of Present Illness H&P Date: 04/16/19 Chief Complaint: elbow pain, chest pain Brooke Cortes is a 49 yo F with PMH of rheumatoid arthritis, fibromyalgia, asthma, hx PE in 2014 who presented to the ED with R elbow pain x1 week and intermittent mid-sternal chest tightness since last night. She states her R elbo w has been swollen and painful, it was treated with steroid injection for the same a few months ago which helped the swelling but her pain never fully resolved. She has been on a steroid taper though her PCP and does not feel like that is helping her elbow pain. She reports that last night she felt a tightness in her chest that she does not characterize as pain, did not radiate. She denies any prior history of chest pain or pressure or shortness of breath and has never seen a chair mechanic. In the ED her vitals were stable, EKG showed sinus rhythm, WBC 7.4, CRP 14.5, trop negative x3. Review of Systems All systems: negative Constitutional: Denies chills, Denies fever Eyes: denies blurred vision, denies pain Ears, nose, mouth and throat: Denies headache, Denies sore throat Cardiovascular: Reports as per HPI, Reports chest pain, Denies shortness of br eath Respiratory: Denies cough Gastrointestinal: Denies abdominal pain, Denies diarrhea, Denies nausea, Denies vomiting Genitourinary: Denies dysuria, Denies hematuria Musculoskeletal: Reports as per HPI, Reports hot joints, Denies myalgias Integumentary: Denies pruritus, Denies rash Neurological: Denies numbness, Denies weakness Psychiatric: Denies anxiety, Denies depression Endocrine: Denies fatigue, Denies weight change 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 2014, shingles 03-19-18, tremors History of Any Multi-Drug Resistant Organisms: None Reported Past Surgical History: Hysterectomy Additional Past Surgical History / Comment(s): COLONOSCOPY, EGD, umbilical hernia repair Past Anesthesia/Blood Transfusion Reactions: No Reported Reaction Past Psychological History: Depression Smoking Status: Never smoker Past Alcohol Use History: Rare Past Drug Use History: None Reported - Past Family History Mother Family Medical History: Hypertension, Renal Disease, Thyroid Disorder Additional Family Medical History / Comment(s): Mother is alive Father Family Medical History: CVA/TIA, Hypertension Additional Family Medical History / Comment(s): Father is alive Sister(s) Family Medical History: Hypertension Medications and Allergies Home Medications Medication Instructions Recorded Confirmed Type Hydrocodone/Acetaminophen [[place] 1 tab PO BID 10/13/18 04/15/19 History 5-325] Acetaminophen/Diphenhydramine 2 tab PO HS 04/15/19 04/15/19 History [Tylenol Pm Ex-Strength Caplet] Budesonide-Formot 160-4.5 Mcg 2 puff INHALATION RT-DAILY 04/15/19 04/15/19 History [Symbicort 160-4.5 Mcg Inhaler] predniSONE [Deltasone] 20 mg PO DAILY 04/15/19 04/15/19 History Allergies Allergy/AdvReac Type Severity Reaction Status Date / Time Penicillins Allergy Anaphylaxis Verified 04/15/19 21:13 tramadol Allergy shortness Verified 04/15/19 21:13 of breath codeine AdvReac Nausea & Uncoded 12/14/18 21:24 Vomiting Physical Exam Vitals: Vital Signs Temp Pulse Pulse Pulse Resp BP BP 04/16/19 11:55 76 77 18 04/16/19 11:54 97.7 F 77 18 156/100 04/16/19 08:00 76 70 18 04/16/19 07:51 98.1 F 70 18 164/111 04/16/19 07:34 76 04/16/19 07:00 98.1 F 76 18 133/86 04/15/19 21:00 80 18 145/94 04/15/19 19:53 98 F 72 18 140/86 04/15/19 18:51 98.5 F 84 18 131/83 Pulse Ox 04/16/19 11:55 04/16/19 11:54 100 04/16/19 08:00 04/16/19 07:51 99 04/16/19 07:34 04/16/19 07:00 98 04/15/19 21:00 98 04/15/19 19:53 96 04/15/19 18:51 97 Intake and Output 04/16/19 04/16/19 04/16/19 06:59 14:59 22:59 Other: Voiding Method Toilet # Voids 3 Weight 86.18 kg General: well nourished, well developed, NAD. Vitals reviewed Eyes: PERRL, EOMI, conjunctiva normal HENT: normocephalic, mucus membranes moist Neck: supple, no JVD Lungs: normal respiratory effort, no wheezes or rales CV: Regular rate and rhythm, no murmur. Peripheral pulses 2+ Abdomen: soft, nondistended, no organomegaly MSK: R elbow effusion and tenderness to palpation Lymph: no cervical or axillary LAD Skin: warm and dry. Neuro: A&Ox3, normal mood and affect Results CBC & Chem 7: 04/15/19 20:00 04/15/19 20:00 Labs: Abnormal Lab Results - Last 24 Hours (Table) 04/15/19 Range/Units 20:00 Alkaline Phosphatase 163 H (38-126) U/L C-Reactive Protein 14.5 H (<10.0) mg/L Thrombosis Risk Factor Assmnt - Choose All That Apply Any of the Below Risk Factors Present?: Yes Each Factor Represents 1 point: Age 41-60 years, Obesity (BMI >25) Other Risk Factors: No Other congenital or acquired thrombophilia - If yes, enter type in comment: No Thrombosis Risk Factor Assessment Total Risk Factor Score: 2 Thrombosis Risk Factor Assessment Level: Low Risk Assessment and Plan (1) Arthritis of elbow, right Current Visit: Yes Status: Acute Code(s): M19.021 - PRIMARY OSTEOARTHRITIS, RIGHT ELBOW SNOMED Code(s): 6819946965284743 (2) Chest pain Current Visit: Yes Status: Acute Code(s): R07.9 - CHEST PAIN, UNSPECIFIED SNOMED Code(s): 43626590 (3) Effusion of right elbow Current Visit: Yes Status: Acute Code(s): M25.421 - EFFUSION, RIGHT ELBOW SNOMED Code(s): 683193864380133 (4) Essential hypertension Current Visit: Yes Status: Acute Code(s): I10 - ESSENTIAL (PRIMARY) HYPERTENSION SNOMED Code(s): 91094758 Plan: 1. Chest pain. ACS ruled out. Cardiology consulted for further evaluation 2. R elbow pain. Suspect related to RA. Orthopedic surgery consult. IV solumedrol 40 mg 3. Essential hypertension. Norvasc
[2019-04-17 07:55] VITALS: BP 139/95; PULSE 83; TEMP 97.9
[2019-04-17] MEDS: amLODIPine 5 MG TAB PO SCH (08:36)
--- NOTE | 2019-04-17 09:41 | P.PN ---
Subjective Progress Note Date: 04/17/19 This patient is a 49-year-old female with a past medical history of fibromyalgia and rheumatoid arthritis that presented to [facility] emergency department on 04/15/2019 due to chest pain and right elbow pain. Patient was admitted under the care of internal medicine with consult with orthopedic svitlana barrientos in regards to her right elbow pain. Patient states there is no injury that she is aware of. She began to spread pain in the right elbow about a week ago. She states the pain progressively worsened over the past week, along with swelling. She states the pain was so severe she could not flex or extend the elbow without pain. She denies history of similar elbow pain. She notes she has experienced similar episodes in her bilateral knees in the past. Patient's elbow was placed into a sling and was given a dose of Decadron in the emergency department. Patient states her pain has significantly improved since being given steroids and being immobilized. She is able to move the elbow without pain this morning. She denies fevers, chills, nausea, vomiting, feelings of generalized malaise. Patient states besides the elbow pain, she has been feeling well. 04/17/19: Patient is examined bedside this morning. She continues to complain of right elbow pain, although she states this is her baseline and she always has this level of pain. She complains of pain with maximum extension of the elbow, she can flex without significant pain. Patient states the swelling of the elbow has decreased, which she states the swelling is what brought her to the emergency department. She states otherwise she feels well, she denies fevers, chills, nausea, vomiting, feelings of generalized malaise. She complains she was unable to get any sleep last night, and is stating she "just wants to go home". Vital signs stable. Objective - Vital Signs Vital signs: Vital Signs Temp 97.9 F 04/17/19 07:30 Pulse 83 04/17/19 07:30 Resp 18 04/17/19 07:30 BP 139/95 04/17/19 07:30 Pulse Ox 97 04/17/19 07:30 Intake & Output 04/16/19 04/17/19 04/17/19 18:59 06:59 18:59 Intake Total 222 Balance 222 Weight 86.18 kg 87 kg Intake: Oral 222 Other: Voiding Method Toilet Toilet # Voids 3 1 - Exam On examination, the patient is sitting in bed in no apparent distress. She is alert and oriented 3. On inspection of the right elbow, there is mild swelling. There is no overlying erythema, ecchymosis, or skin discoloration. There is no pain on palpation of the elbow. There is no pain on palpation of the hand, wrist, forearm, humerus, or shoulder. There is no pain with passive range of motion of the elbow, although motion becomes painful with maximum flexion and extension. Motor and sensory function appear to be intact of the right upper extremity. Radial pulse palpable, with brisk capillary refill distally. - Labs CBC & Chem 7: 04/15/19 20:00 04/15/19 20:00 Assessment and Plan Assessment: Right elbow pain, most likely related to an arthritic flare. Plan: - Patient appears to have improvement in swelling and mild improvement of the right elbow pain. We discussed aspirating the right elbow and injecting with cortisone today, although the patient declines this procedure and states she would just like to go home. - Recommended continued immobilization of the right elbow with the current sling. She should come out of the sling for gentle active range of motion of the right elbow, as tolerated. - Will defer to admitting team for oral steroids on discharge. - The patient is cleared for discharge from an orthopedic standpoint. She should follow-up in the office within the week for a clinical re-evaluation. Patient discussed with Dr. Damon.
--- NOTE | 2019-04-17 16:16 | ECHOS ---
Stress Test Results/Findings: Exam Performed: dobutamine stress echo Exam Date: 04/16/19 Reason for Exam: CHEST PAIN Height: 5 ft 7 in Weight: 86.18 kg Protocol: DSE Stage: 3 Duration of Exercise: 7:30 Resting Heart Rate: 70 Resting Blood Pressure: 160/91 Maximum Achieved Heart Rate: 147 Maximum Achieved Blood Pressure: 188/62 85% PMHR: 145 100% PMHR: 170 METS: NA Technologist Comment: Stress Test Results/Findings: This is a 49-year-old female with history of hypertension and COPD being evaluated for cardiac status. Stress data: Baseline EKG showed sinus rhythm with normal IA interval and QRS duration and nonspecific ST-T changes. Blood pressure at rest is 160/91, pulse rate of 70. A standard dose of dobutamine initiated at 10 mics and was titrated to 30 mics, achieving a maximum rate of 147 with a blood pressure 188/62. EKGs taken during and after the dobutamine infusion did not reveal any change of ischemia. Echo data: Baseline echo images show normal wall motion and thickening. Exercise echo images showed augmentation of wall motion and thickening in all the segments. MTDD
--- NOTE | 2019-04-17 17:05 | P.DS ---
Providers Date of admission: 04/15/19 20:55 Expected date of discharge: 04/17/19 Attending physician: Chas Chong MD Consults: 04/15/19 20:56 Consult Physician Routine Consulting Provider: Rehana Prabhakar Consult Reason/Comments: CP Do you want consulting provider notified?: Yes 04/15/19 21:00 Consult Physician Routine Consulting Provider: Charly Damon Consult Reason/Comments: Right elbow effusion, pain and swelling Do you want consulting provider notified?: Already Contacted Primary care physician: Chas Chong MD Hospital Course: Final Diagnoses: (1) Arthritis of elbow, right Current Visit: Yes Status: Acute Code(s): M19.021 - PRIMARY OSTEOARTHRITIS, RIGHT ELBOW SNOMED Code(s): 8041650736282486 (2) Chest pain, acute coronary syndrome ruled out per cardiology Current Visit: Yes Status: Acute Code(s): R07.9 - CHEST PAIN, UNSPECIFIED SNOMED Code(s): 37061005 (3) Effusion of right elbow, evaluated by orthopedic surgery Current Visit: Yes Status: Acute Code(s): M25.421 - EFFUSION, RIGHT ELBOW SNOMED Code(s): 495373968482134 (4) Essential hypertension, Norvasc initiated Current Visit: Yes Status: Acute Code(s): I10 - ESSENTIAL (PRIMARY) HYPERTENSION SNOMED Code(s): 94579161 Hospital course:Brooke Cortes is a 49 yo F with PMH of rheumatoid arthritis, fibromyalgia, asthma, hx PE in 2014 who presented to the ED with R elbow pain x1 week and intermittent mid-sternal chest tightness since last night. She states her R elbow has been swollen and painful, it was treated with steroid injection for the same a few months ago which helped the swelling but her pain never fully resolved. She has been on a steroid taper though her PCP and does not feel like that is helping her elbow pain. She reports that last night she felt a tightness in her chest that she does not characterize as pain, did not radiate. 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 In the ED her vitals were stable, EKG showed sinus rhythm, WBC 7.4, CRP 14.5, trop negative x3. Evaluated by both cardiology and orthopedic surgery. Dobutamine stress performed reported as normal. No surgical intervention recommended as per orthopedic surgery; recommended continued embolization of right elbow with sl ing. Pain and edema improved with no aspiration recommended at this time. Significant clinical improvement. Cleared by all consults for discharge. Patient is being discharged home in a stable condition with guarded prognosis. General: Alert and oriented 3, NAD Lungs: normal respiratory effort, no wheezes or rales CV: Regular rate and rhythm, no murmur. Peripheral pulses 2+ Abdomen: soft, nondistended, no organomegaly, positive bowel sound MSK: R elbow effusion with decreased edema and decreased tenderness to palpation, emmobilized with sling Neuro: A&Ox3, normal mood and affect The impression and plan of care has been dictated as directed. : I performed a history and examination of this patient, discussed the same with the dictator. I agree with the dictator's note ,documented as a scribe. Any additional findings or plans will be noted. Patient Condition at Discharge: Stable Plan - Discharge Summary Discharge Rx Participant: No New Discharge Prescriptions: New Cyclobenzaprine [Flexeril] 5 mg PO TID PRN #30 tablet PRN Reason: Spasms amLODIPine [Norvasc] 5 mg PO DAILY #30 tab Continue predniSONE [Deltasone] 20 mg PO DAILY Acetaminophen/Diphenhydramine [Tylenol Pm Ex-Strength Caplet] 2 tab PO HS Budesonide-Formot 160-4.5 Mcg [Symbicort 160-4.5 Mcg Inhaler] 2 puff INHALATION RT-DAILY Changed Hydrocodone/Acetaminophen [[place] 5-325] 1 tab PO Q6H PRN #12 tab PRN Reason: Pain Discharge Medication List Acetaminophen/Diphenhydramine [Tylenol Pm Ex-Strength Caplet] 2 tab PO HS 04/15/19 [History] Budesonide-Formot 160-4.5 Mcg [Symbicort 160-4.5 Mcg Inhaler] 2 puff INHALATION RT-DAILY 04/15/19 [History] predniSONE [Deltasone] 20 mg PO DAILY 04/15/19 [History] Cyclobenzaprine [Flexeril] 5 mg PO TID PRN #30 tablet 04/17/19 [Rx] Hydrocodone/Acetaminophen [[place] 5-325] 1 tab PO Q6H PRN #12 tab 04/17/19 [Rx] amLODIPine [Norvasc] 5 mg PO DAILY #30 tab 04/17/19 [Rx] Follow up Appointment(s)/Referral(s): Chas Chong MD [Primary Care Provider] - 3 Days Jose Alberto Marie DO [Medical Doctor] - 1 Week Activity/Diet/Wound Care/Special Instructions: Keep sling in place for comfort. Gentle, active range of motion of the elbow as tolerated. Follow-up in the office next week with Dr. Damon. Call the office with any questions or concerns, . Discharge Disposition: HOME SELF-CARE
== END 2019-04-17 14:54 | disposition home or self-care (01) ==
LOC: EC 18:27 → 1SOBS 20:55
PROVIDERS: ADMIT Family Medicine; ATTEND Family Medicine
DX: R07.9 Chest pain, unspecified (principal); M25.421 Effusion, right elbow; Z86.711 Personal history of pulmonary embolism; I10 Essential (primary) hypertension; M79.7 Fibromyalgia; M06.9 Rheumatoid arthritis, unspecified; J45.909 Unspecified asthma, uncomplicated; D64.9 Anemia, unspecified; F32.9 Major depressive disorder, single episode, unspecified; M19.021 Primary osteoarthritis, right elbow; Z90.710 Acquired absence of both cervix and uterus; Z88.0 Allergy status to penicillin; Z88.5 Allergy status to narcotic agent; Z79.51 Long term (current) use of inhaled steroids; Z79.52 Long term (current) use of systemic steroids; Z79.891 Long term (current) use of opiate analgesic; Z79.899 Other long term (current) drug therapy; Z82.49 Family history of ischemic heart disease and other diseases of the circulatory system; Z84.1 Family history of disorders of kidney and ureter; Z82.3 Family history of stroke; Z83.49 Family history of other endocrine, nutritional and metabolic diseases
CPT/HCPCS: 96375 ×2; 96376 ×2; 96374; 99285; 36415; 93005; 93306; 93351; 85379; 83880; 80053; 83605; 83735; 84484 ×2; 85025; 85610; 85730; 86140; 73080; 71046; G0378 ×3; J1250; J1100; J2920; J1885 ×2; J1170 ×3

== ENCOUNTER 2019-04-30 16:51 | Inpatient (IN) | payer MEDICARE ==
--- NOTE | 2019-04-30 17:59 | XR ---
EXAMINATION TYPE: XR elbow complete RT DATE OF EXAM: 04/30/2019 COMPARISON: 04/15/2019 HISTORY: Pain and swelling TECHNIQUE: 3 views FINDINGS: There is elbow joint effusion and large posterior fat pad sign. There is narrowing of the e lbow joint spaces. I see no fracture nor dislocation. IMPRESSION: Elbow joint effusion increased compared to old exam. Joint space narrowing. No significan t spur formation. The possibility of septic arthritis should be considered. No fracture seen.
[2019-04-30] MEDS ORDERED: KETOROLAC 30 MG/ML 1 ML VIAL IVP STA (18:25)
--- NOTE | 2019-04-30 18:37 | ED ---
Extremity Problem HPI <Derian Riosssmanuela Tavarez - Last Filed: 04/30/19 20:05> - General Source: patient Mode of arrival: ambulatory Limitations: no limitations <Yanet Almanzar - Last Filed: 04/30/19 20:35> - General Chief complaint: Extremity Problem,Nontraumatic Stated complaint: Elbow filled with fluid Time Seen by Provider: 04/30/19 17:59 - History of Present Illness Initial comments: Patient is a 49-year-old female, with past medical history of rheumatoid arthritis, presenting to emergency Department with complaints of severe right elbow pain. Patient states she was seen in the hospital 2 weeks ago for same complaint and was admitted for chest pain rule out. Patient states she did have an orthopedic come see her in the hospital regarding her elbow pain and she does have a follow-up appointment tomorrow with Dr. Damon. Patient states that for the last few days the pain has been more and more severe and she is not able to use or move her elbow anymore. She states she has been having issues with elbow since January of last year. Patient is concerned that something more severe is going on. Patient states she does have pain medication at home that she takes for RA but that is not helping this pain. She denies any fever, nausea, vomiting. She denies chest pain, shortness of breath. She has no other complaints at this time. Upon arrival to the ER vitals are stable. (Yanet Almanzar) - Related Data Home Medications Medication Instructions Recorded Confirmed Acetaminophen/Diphenhydramine 2 tab PO HS 04/15/19 04/15/19 [Tylenol Pm Ex-Strength Caplet] Budesonide-Formot 160-4.5 Mcg 2 puff INHALATION RT-DAILY 04/15/19 04/15/19 [Symbicort 160-4.5 Mcg Inhaler] predniSONE [Deltasone] 20 mg PO DAILY 04/15/19 04/15/19 Previous Rx's Medication Instructions Recorded Cyclobenzaprine [Flexeril] 5 mg PO TID PRN #30 tablet 04/17/19 Hydrocodone/Acetaminophen [[place] 1 tab PO Q6H PRN #12 tab 04/17/19 5-325] amLODIPine [Norvasc] 5 mg PO DAILY #30 tab 04/17/19 Allergies Allergy/AdvReac Type Severity Reaction Status Date / Time Penicillins Allergy Anaphylaxis Verified 04/15/19 21:13 tramadol Allergy shortness Verified 04/15/19 21:13 of breath codeine AdvReac Nausea & Uncoded 12/14/18 21:24 Vomiting Review of Systems ROS Other: All systems not noted in ROS Statement are negative. <Boy Rios - Last Filed: 04/30/19 20:05> ROS Other: All systems not noted in ROS Statement are negative. <Yanet Almanzar - Last Filed: 04/30/19 20:35> ROS Statement: Those systems with pertinent positive or pertinent negative responses have been documented in the HPI. Past Medical History Past Medical History: Fibromyalgia, Rheumatoid Arthritis (RA) Additional Past Medical History / Comment(s): ANEMIA, clotting disorder-blood cl ots in lungs diagnosed October 2014, shingles 03-19-18, tremors History of Any Multi-Drug Resistant Organisms: None Reported Past Surgical History: Hysterectomy Additional Past Surgical History / Comment(s): COLONOSCOPY, EGD, umbilical hernia repair Past Anesthesia/Blood Transfusion Reactions: No Reported Reaction Past Psychological History: Depression Smoking Status: Never smoker Past Alcohol Use History: Rare Past Drug Use History: None Reported - Past Family History Mother Family Medical History: Hypertension, Renal Disease, Thyroid Disorder Additional Family Medical History / Comment(s): Mother is alive Father Family Medical History: CVA/TIA, Hypertension Additional Family Medical History / Comment(s): Father is alive Sister(s) Family Medical History: Hypertension <Yanet Almanzar - Last Filed: 04/30/19 20:35> General Exam Limitations: no limitations <Yanet Almanzar - Last Filed: 04/30/19 20:35> - General Exam Comments Initial Comments: GENERAL: Well-appearing, well-nourished and in no acute distress. HEAD: Atraumatic, normocephalic. EYES: Pupils equal round and reactive to light, extraocular movements intact, sclera anicteric, conjunctiva are normal. ENT: Nares patent, oropharynx clear without exudates. Moist mucous membranes. NECK: Normal range of motion, supple without lymphadenopathy or JVD. LUNGS: Breath sounds clear to auscultation bilaterally and equal. No wheezes rales or rhonchi. HEART: Regular rate and rhythm without murmurs, rubs or gallops. ABDOMEN: Soft, nontender, normoactive bowel sounds. No guarding, no rebound. No masses appreciated. : Deferred EXTREMITIES: Patient has significant pain with palpation of the entire right elbow joint. She is basically stuck at the 90 position secondary to severe pain with passive or active range of motion. The area does appear to be warmer than the rest of her arm. There is no erythema. There is moderate swelling of the joint. She is neurovascular intact. NEUROLOGICAL: Normal speech, normal gait. PSYCH: Normal mood, normal affect. SKIN: Warm, Dry, normal turgor, no rashes or lesions noted. (Yanet Almanzar) Course Vital Signs 04/30/19 17:07 Temperature 98.1 F Pulse Rate 92 Respiratory 17 Rate Blood Pressure 113/80 O2 Sat by Pulse 100 Oximetry Medical Decision Making - Lab Data Result diagrams: 04/30/19 18:55 04/30/19 18:55 <Boy Rios - Last Filed: 04/30/19 20:05> - Lab Data Result diagrams: 04/30/19 18:55 04/30/19 18:55 <Yanet Almanzar - Last Filed: 04/30/19 20:35> - Medical Decision Making PA attestation: I, Dr. Boy Rios, personally saw and examined the patient. I have reviewed and agree with the resident/PA findings, including all diagnostic interpretations and treatment plans as written unless otherwise stated. I was present for the tong portions of any procedures performed and inclusive time noted for any critical care statement. Patient was seen and evaluated along with physician senior sales assistant Yanet Almanzar. Briefly, patient is a 49-year-old female presents acute on chronic right elbow pain. X-ray was performed showing large effusion. Patient is significantly tender and unable to bend the joint. She states that her pain is significantly worse the last couple days. Patient has elevated C-reactive protein. Pending ESR level. Discussed patient case with Dr. Cortez who reports that is highly unlikely that patient has a septic elbow joint. (Boy Rios) Patient is a 49-year-old female presenting with right elbow pain that has been increasing for the past few weeks. She has history of RA. She does have a follow-up appointment with Dr. Damon tomorrow. X-ray today shows a large joint effusion, increase from x-rays 2 weeks ago. Patient is specifically tender and unable to range the joint. ESR is 34, CRP is 23. Case discussed wit Dr. Rios. Case discussed with on-call orthopedic, Dr. Cortez. Patient will be admitted and started on antibiotics with consult to orthopedics. Patient is agreement with this plan of care. (Yanet Almanzar) - Lab Data Lab Results 04/30/19 04/30/19 04/30/19 Range/Units 18:55 18:55 18:55 WBC 4.8 (3.8-10.6) k/uL RBC 4.55 (3.80-5.40) m/uL Hgb 13.2 (11.4-16.0) gm/dL Hct 41.6 (34.0-46.0) % MCV 91.5 (80.0-100.0) fL MCH 29.1 (25.0-35.0) pg MCHC 31.8 (31.0-37.0) g/dL RDW 12.7 (11.5-15.5) % Plt Count 297 (150-450) k/uL Neutrophils % 51 % Lymphocytes % 31 % Monocytes % 5 % Eosinophils % 7 % Basophils % 1 % Neutrophils # 2.4 (1.3-7.7) k/uL Lymphocytes # 1.5 (1.0-4.8) k/uL Monocytes # 0.3 (0-1.0) k/uL Eosinophils # 0.4 (0-0.7) k/uL Basophils # 0.0 (0-0.2) k/uL ESR 34 H (0-20) mm/hr Sodium 138 (137-145) mmol/L Potassium 4.0 (3.5-5.1) mmol/L Chloride 105 (98-107) mmol/L Carbon Dioxide 26 (22-30) mmol/L Anion Gap 7 mmol/L BUN 7 (7-17) mg/dL Creatinine 0.60 (0.52-1.04) mg/dL Est GFR (CKD-EPI)AfAm >90 (>60 ml/min/1.73 sqM) Est GFR (CKD-EPI)NonAf >90 (>60 ml/min/1.73 sqM) Glucose 84 (74-99) mg/dL Plasma Lactic Acid Gerber 1.1 (0.7-2.0) mmol/L Calcium 9.5 (8.4-10.2) mg/dL Total Bilirubin 0.6 (0.2-1.3) mg/dL AST 27 (14-36) U/L ALT 14 (4-34) U/L Alkaline Phosphatase 141 H (38-126) U/L C-Reactive Protein 23.5 H (<10.0) mg/L Total Protein 7.3 (6.3-8.2) g/dL Albumin 4.0 (3.5-5.0) g/dL Disposition <Boy Rios - Last Filed: 04/30/19 20:05> Is patient prescribed a controlled substance at d/c from ED?: No Decision Date: 04/30/19 Decision Time: 20:20 <Yanet Almanzar - Last Filed: 04/30/19 20:35> Clinical Impression: Septic arthritis of elbow, right, Right elbow pain Disposition: ADMITTED IP TO THIS HOSP Condition: Stable Referrals: Chas Chong MD [Primary Care Provider] - 1-2 days
[2019-04-30 19:21] LABS: Basophils % (A) 1 %; Eosinophils # (A) 0.4 k/uL (0-0.7); Eosinophils % (A) 7 %; HCT 41.6 % (34.0-46.0); HGB 13.2 gm/dL (11.4-16.0); Lymphocytes # (A) 1.5 k/uL (1.0-4.8); Lymphocytes % (A) 31 %; MCH 29.1 pg (25.0-35.0); MCHC 31.8 g/dL (31.0-37.0); MCV 91.5 fL (80.0-100.0); Mean Platelet Volume 8.8; Monocytes # (A) 0.3 k/uL (0-1.0); Monocytes % (A) 5 %; Neutrophils # (A) 2.4 k/uL (1.3-7.7); Neutrophils % (A) 51 %; Platelet Count 297 k/uL (150-450); RBC 4.55 m/uL (3.80-5.40); RDW 12.7 % (11.5-15.5); WBC 4.8 k/uL (3.8-10.6)
[2019-04-30 19:27] LABS: ALT 14 U/L (4-34); AST 27 U/L (14-36); African American GFR (CKD) >90 (>60 ml/min/1.73 sqM); Alkaline Phosphatase 141 U/L (38-126); Anion Gap 7 mmol/L; Blood Urea Nitrogen 7 mg/dL (7-17); C Reactive Protein 23.5 mg/L (<10.0); Calcium 9.5 mg/dL (8.4-10.2); Carbon Dioxide 26 mmol/L (22-30); Chloride 105 mmol/L (98-107); Glucose 84 mg/dL (74-99); Non-African American GFR(CKD) >90 (>60 ml/min/1.73 sqM); Sodium 138 mmol/L (137-145); Total Bilirubin 0.6 mg/dL (0.2-1.3); Total Protein 7.3 g/dL (6.3-8.2)
[2019-04-30] MEDS ORDERED: NALOXONE 0.4 MG/ML 1 ML VIAL IV PRN (20:11)
[2019-04-30] MEDS ORDERED: IBUPROFEN 400 MG TAB PO PRN (20:11)
[2019-04-30] MEDS ORDERED: LEVOFLOXACIN 750MG-D5W PMX 750 MG in DEXTROSE/WATER 1 150ML.BAG IVPB STA (20:16)
[2019-04-30 20:22] LABS: Erythrocyte Sedimentation Rate 34 mm/hr (0-20)
[2019-04-30] MEDS: MORPHINE SULFATE 4 MG/ML SYRINGE IV PRN (22:41)
--- NOTE | 2019-05-01 08:47 | P.CNOR ---
History of Present Illness - [facility] Consult date: 05/01/19 Consult reason: joint pain (Right elbow effusion and pain.) History of present illness: This is a 49-year-old female with history of rheumatoid arthritis who complains of right elbow pain and swelling. She was seen approximately 2 weeks ago on consult for the same complaint. She was scheduled for follow-up with Dr. Damon today in the office. She returns the emergency department last evening for increased pain in the elbow. She reports no fever or chills. 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 The patient is currently afebrile. Her white count is 4.8. Sed rate and CRP are slightly elevated. 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 2014, shingles 03-19-18, tremors History of Any Multi-Drug Resistant Organisms: None Reported Past Surgical History: Hysterectomy Additional Past Surgical History / Comment(s): COLONOSCOPY, EGD, umbilical hernia repair Past Anesthesia/Blood Transfusion Reactions: No Reported Reaction Past Psychological History: Depression Additional Psychological History / Comment(s): Pt resides alone. She is disabled. She does not own a car, she gets to [facility] by bus. Smoking Status: Never smoker Past Alcohol Use History: Rare Past Drug Use History: None Reported - Past Family History Mother Family Medical History: Hypertension, Renal Disease, Thyroid Disorder Additional Family Medical History / Comment(s): Mother is alive Father Family Medical History: CVA/TIA, Hypertension Additional Family Medical History / Comment(s): Father is alive Sister(s) Family Medical History: Hypertension Medications and Allergies Home Medications Medication Instructions Recorded Confirmed Type Acetaminophen/Diphenhydramine 2 tab PO HS 04/15/19 04/30/19 History [Tylenol Pm Ex-Strength Caplet] Budesonide-Formot 160-4.5 Mcg 2 puff INHALATION RT-DAILY 04/15/19 04/30/19 History [Symbicort 160-4.5 Mcg Inhaler] predniSONE [Deltasone] 20 mg PO DAILY 04/15/19 04/30/19 History Hydrocodone/Acetaminophen [[place] 1 tab PO Q6H PRN #12 tab 04/17/19 04/30/19 Rx 5-325] amLODIPine [Norvasc] 5 mg PO DAILY #30 tab 04/17/19 04/30/19 Rx Allergies Allergy/AdvReac Type Severity Reaction Status Date / Time Penicillins Allergy Dyspnea/hiv Verified 04/30/19 21:22 es codeine AdvReac Nausea & Verified 04/30/19 21:22 Vomiting tramadol AdvReac shortness Verified 04/30/19 21:22 of breath Physical Examination This is a pleasant 49-year-old female in no acute distress. She is alert and oriented 3. Exam of the upper extremities reveals an effusion to the right elbow. There is no erythema and only slight increased warmth to the elbow. She has limited range of motion secondary to pain and swelling. She has full wrist and finger motion without difficulty or pain. Neurovascular status to the upper extremities intact. Exam of the left upper extremity is unremarkable. E xam of the lower extremities is unremarkable. Results X-rays of the right elbow reveal no acute fractures. There is moderate to severe rheumatoid arthritic changes. There is no evidence of bony erosion or osteomyelitis. There is a large joint effusion. - Labs Labs: Abnormal Lab Results - Last 24 Hours (Table) 04/30/19 04/30/19 Range/Units 18:55 18:55 ESR 34 H (0-20) mm/hr Alkaline Phosphatase 141 H (38-126) U/L C-Reactive Protein 23.5 H (<10.0) mg/L H & H 04/30/19 Range/Units 18:55 Hgb 13.2 (11.4-16.0) gm/dL Hct 41.6 (34.0-46.0) % Result Diagrams: 04/30/19 18:55 04/30/19 18:55 Assessment and Plan (1) Flare of rheumatoid arthritis Current Visit: Yes Status: Acute Code(s): M06.9 - RHEUMATOID ARTHRITIS, UNSP ECIFIED SNOMED Code(s): 296595513 (2) Right elbow pain Current Visit: Yes Status: Acute Code(s): M25.521 - PAIN IN RIGHT ELBOW SNOMED Code(s): 90784922 (3) Arthritis of elbow, right Current Visit: No Status: Acute Code(s): M19.021 - PRIMARY OSTEOARTHRITIS, RIGHT ELBOW SNOMED Code(s): 0389441284793959 (4) Effusion of right elbow Current Visit: No Status: Acute Code(s): M25.421 - EFFUSION, RIGHT ELBOW SNOMED Code(s): 472442020956215 Plan: The clinical and x-ray findings are discussed with the patient and with Dr. Cortez. With the absence of fever or elevated white count, it is unlikely that this is a septic joint. Most likely she is experiencing an acute flareup of her rheumatoid arthritis. We recommend IV site Medrol to treat the acute flare. We do not feel that aspiration is indicated at this time. There is risk for causing infection in the elbow with an aspiration. We will continue to follow and repeat labs and continue to check her temperature for fever. I recommend that she follow-up with her visual effects editor soon to get better management of her condition.
[2019-05-01] MEDS: methylPREDNISolone SOD SUCCI 125 MG/2 ML VIAL IV SCH ×3 (09:30→23:18)
[2019-05-01] MEDS: MORPHINE SULFATE 4 MG/ML SYRINGE IV PRN (18:08)
[2019-05-01] MEDS: KETOROLAC 30 MG/ML 1 ML VIAL IVP PRN (23:18)
[2019-05-02 03:59] VITALS: RESP 16
[2019-05-02 07:50] VITALS: BP 133/85; PULSE 84; TEMP 97.6
[2019-05-02] MEDS: methylPREDNISolone SOD SUCCI 125 MG/2 ML VIAL IV SCH (07:57)
--- NOTE | 2019-05-02 09:30 | P.PN ---
Subjective Progress Note Date: 05/02/19 Principal diagnosis: Rheumatoid flare right elbow. This is a 49-year-old female with history of rheumatoid arthritis who is not currently on any suppressive therapy abdomen prednisone. She states that she has seen a food porter in the past but has not seen one in over a year. She states that she has tried medication in the past that does not work for her rheumatoid arthritis. She states that "no one will do anything for me". She continues to have pain about the right elbow. She reports no relief from the Solu Medrol. Objective - Vital Signs Vital signs: Vital Signs Temp 97.6 F 05/02/19 07:00 Pulse 84 05/02/19 07:00 Resp 16 05/02/19 07:00 BP 133/85 05/02/19 07:00 Pulse Ox 96 05/02/19 07:00 Intake & Output 05/01/19 05/02/19 05/02/19 18:59 06:59 18:59 Other: # Voids 2 1 - Exam This is a 49-year-old female in no acute distress. She is alert and oriented 3. She continues to have swelling about the elbow. Her range of motion is significantly limited. There is mild pain with palpation about the elbow. There is no redness or increased warmth. Neurovascular status the upper extremity is intact. - Labs CBC & Chem 7: 04/30/19 18:55 04/30/19 18:55 Labs: Microbiology - Last 24 Hours (Table) 04/30/19 18:55 Blood Culture - Preliminary Blood No Growth after 24 hours Assessment and Plan (1) Flare of rheumatoid arthritis Current Visit: Yes Status: Acute Code(s): M06.9 - RHEUMATOID ARTHRITIS, UNSPECIFIED SNOMED Code(s): 397201242 (2) Right elbow pain Current Visit: Yes Status: Acute Code(s): M25.521 - PAIN IN RIGHT ELBOW SNOMED Code(s): 28820643 (3) Arthritis of elbow, right Current Visit: No Status: Acute Code(s): M19.021 - PRIMARY OSTEOARTHRITIS, RIGHT ELBOW SNOMED Code(s): 0006901939476224 (4) Effusion of right elbow Current Visit: No Status: Acute Code(s): M25.421 - EFFUSION, RIGHT ELBOW SNOMED Code(s): 377269808202002 Plan: The clinical and x-ray findings are discussed with the patient and with Dr. Cortez. With the absence of fever or elevated white count, it is unlikely that this is a septic joint. Most likely she is experiencing an acute flareup of her rheumatoid arthritis. I recommend that she follow-up with a food porter soon to get better management of her condition. The patient states that she does not have one currently and doesn't feel that they do a thing for her anyway. I again, encouraged her to at least try to setup an appointment with rheumatology to discuss treatment options. We will sign off at this time.
--- NOTE | 2019-05-02 10:33 | P.HPIM ---
History of Present Illness H&P Date: 05/01/19 Chief Complaint: R elbow pain Brooke Cortes is a 49 yo F with PMH of RA, fibromyalgia who presented to the ED complaining of severe R elbow pain and swelling. She states her elbow has been aching both with rest and motion and hurting so much she is unable to go about her daily activities or get any sleep. She states this has been severe for a few months. She was initially seen in PCP clinic and her elbow was injected with kenalog with only mild relief, she presented to the ED last month and was evaluated by ortho at that time and recommended prednisone. She states she has not followed with a Natural Gas Field Processing Supervisor in a few years due to cost and Enbrel was the only medication that worked to control her joint pain but she cannot afford it. She has tried MTX in the past without relief. In the ED her vitals were stable, WBC 4.8, ESR 30, CRP 23. Elbow XR with joint effusion. Pain was controlled with morphine. Review of Systems All systems: negative Constitutional: Reports as per HPI, Denies chills, Denies fever Eyes: denies blurred vision, denies pain Ears, nose, mouth and throat: Denies headache, Denies sore throat Cardiovascular: Denies chest pain, Denies shortness of breath Respiratory: Denies cough Gastrointestinal: Denies abdominal pain, Denies diarrhea, Denies nausea, Denies vomiting Genitourinary: Denies dysuria, Denies hematuria Musculoskeletal: Denies myalgias Musculoskeletal: right: elbow stiffness, elbow swelling Integumentary: Denies pruritus, Denies rash Neurological: Denies numbness, Denies weakness Psychiatric: Denies anxiety, Denies depression Endocrine: Denies fatigue, Denies weight change 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 2014, shingles 03-19-18, tremors History of Any Multi-Drug Resistant Organisms: None Reported Past Surgical History: Hysterectomy Additional Past Surgical History / Comment(s): COLONOSCOPY, EGD, umbilical hernia repair Past Anesthesia/Blood Transfusion Reactions: No Reported Reaction Past Psychological History: Depression Additional Psychological History / Comment(s): Pt resides alone. She is disabled. She does not own a car, she gets to [facility] by bus. Smoking Status: Never smoker Past Alcohol Use History: Rare Past Drug Use History: None Reported - Past Family History Mother Family Medical History: Hypertension, Renal Disease, Thyroid Disorder Additional Family Medical History / Comment(s): Mother is alive Father Family Medical History: CVA/TIA, Hypertension Additional Family Medical History / Comment(s): Father is alive Sister(s) Family Medical History: Hypertension Medications and Allergies Home Medications Medication Instructions Recorded Confirmed Type Acetaminophen/Diphenhydramine 2 tab PO HS 04/15/19 04/30/19 History [Tylenol Pm Ex-Strength Caplet] Budesonide-Formot 160-4.5 Mcg 2 puff INHALATION RT-DAILY 04/15/19 04/30/19 History [Symbicort 160-4.5 Mcg Inhaler] predniSONE [Deltasone] 20 mg PO DAILY 04/15/19 04/30/19 History Hydrocodone/Acetaminophen [Sterling 1 tab PO Q6H PRN #12 tab 04/17/19 04/30/19 Rx 5-325] amLODIPine [Norvasc] 5 mg PO DAILY #30 tab 04/17/19 04/30/19 Rx Allergies Allergy/AdvReac Type Severity Reaction Status Date / Time Penicillins Allergy Dyspnea/hiv Verified 04/30/19 21:22 es codeine AdvReac Nausea & Verified 04/30/19 21:22 Vomiting tramadol AdvReac shortness Verified 04/30/19 21:22 of breath Physical Exam Vitals: Vital Signs Temp Pulse Resp BP Pulse Ox 05/02/19 07:00 97.6 F 84 16 133/85 96 05/02/19 03:19 16 05/01/19 23:09 98.0 F 82 18 121/78 95 05/01/19 19:10 98.3 F 86 126/80 95 05/01/19 15:00 98.0 F 70 16 124/80 99 Intake and Output 05/01/19 05/02/19 05/02/19 22:59 06:59 14:59 Other: # Voids 1 1 General: well nourished, well developed, NAD. Vitals reviewed Eyes: PERRL, EOMI, conjunctiva normal HENT: normocephalic, mucus membranes moist Neck: supple, no JVD Lungs: normal respiratory effort, no wheezes or rales CV: Regular rate and rhythm, no murmur. Peripheral pulses 2+ Abdomen: soft, nondistended, no organomegaly MSK: R elbow painful around triceps insertion. Warm and tender to palpation. Effusion present Skin: warm and dry. Neuro: A&Ox3, normal mood and affect Results CBC & Chem 7: 04/30/19 18:55 02 18:55 Labs: Microbiology - Last 24 Hours (Table) 04/30/19 18:55 Blood Culture - Preliminary Blood No Growth after 24 hours Thrombosis Risk Factor Assmnt - Choose All That Apply Any of the Below Risk Factors Present?: No Other Risk Factors: No Other congenital or acquired thrombophilia - If yes, enter type in comment: No Thrombosis Risk Factor Assessment Level: Very Low Risk Assessment and Plan (1) Flare of rheumatoid arthritis Current Visit: Yes Status: Acute Code(s): M06.9 - RHEUMATOID ARTHRITIS, UNSPECIFIED SNOMED Code(s): 653923055 (2) Right elbow pain Current Visit: Yes Status: Acute Code(s): M25.521 - PAIN IN RIGHT ELBOW SNOMED Code(s): 80794704 (3) Arthritis of elbow, right Current Visit: No Status: Acute Code(s): M19.021 - PRIMARY OSTEOARTHRITIS, RIGHT ELBOW SNOMED Code(s): 9446567804747849 (4) Effusion of right elbow Current Visit: No Status: Acute Code(s): M25.421 - EFFUSION, RIGHT ELBOW SNOMED Code(s): 598959809824059 Plan: 1. Right elbow pain and effusion. Rule out septic arthritis. Orthopedic surgery consulted for further evaluation. Suspect RA flare. IV solumedrol and pain control. Encouraged her to re-establish with rheumatology after discharge 2. HTN. Continue norvasc
[2019-05-02] MEDS ORDERED: amLODIPine 5 MG TAB PO SCH (10:45)
[2019-05-02] MEDS: KETOROLAC 30 MG/ML 1 ML VIAL IVP PRN (13:02)
--- NOTE | 2019-05-02 15:33 | P.DS ---
Providers Date of admission: 04/30/19 20:22 Expected date of discharge: 05/02/19 Attending physician: Chas Chong MD Primary care physician: Chas Chong MD Hospital Course: Final Diagnoses: (1) Flare of rheumatoid arthritis Current Visit: Yes Status: Acute Code(s): M06.9 - RHEUMATOID ARTHRITIS, UNSPECIFIED SNOMED Code(s): 368714921 (2) Right elbow pain Current Visit: Yes Status: Acute Code(s): M25.521 - PAIN IN RIGHT ELBOW SNOMED Code(s): 80185469 (3) Arthritis of elbow, right Current Visit: No Status: Acute Code(s): M19.021 - PRIMARY OSTEOARTHRITIS, RIGHT ELBOW SNOMED Code(s): 3599047101180262 (4) Effusion of right elbow Current Visit: No Status: Acute Code(s): M25.421 - EFFUSION, RIGHT ELBOW SNOMED Code(s): 276477896234598 Hospital course: Brooke Cortes is a 49 yo F with PMH of RA, fibromyalgia who presented to the ED complaining of severe R elbow pain and swelling. She states her elbow has been aching both with rest and motion and hurting so much she is unable to go about her daily activities or get any sleep. She states this has been severe for a few months. She was initially seen in PCP clinic and her elbow was injected with kenalog with only mild relief, she presented to the ED last month and was evaluated by ortho at that time and recommended prednisone. She states she has not followed with a Product Development Worker in a few years due to cost and Enbrel was the only medication that worked to control her joint pain but she cannot afford it. She has tried MTX in the past without relief. In the ED her vitals were stable, WBC 4.8, ESR 30, CRP 23. Elbow XR with joint effusion. Pain was controlled with morphine. Afebrile, normal WBC .Evaluated by orthopedic surgery, with recommendations of following up with a dedenter. Patient instructed to follow with Dr. Chas Chong next week at the office for Enbrel sample. Patient is being discharged home in a stable condition with guarded prognosis. General: Alert and oriented 3, no acute distress Lungs: normal respiratory effort, no wheezes or rales CV: Regular rate and rhythm, no murmur. Peripheral pulses 2+ Abdomen: soft, nondistended, no organomegaly positive bowel sounds. MSK: R elbow no redness or increased warmth , neurovascularly intact Neuro: No focal deficits The impression and plan of care has been dictated as directed. : I performed a history and examination of this patient, discussed the same with the dictator. I agree with the dictator's note ,documented as a scribe. Any additional findings or plans will be noted. Patient Condition at Discharge: Stable Plan - Discharge Summary Discharge Rx Participant: No New Discharge Prescriptions: New predniSONE 10 mg PO DIRECTED #27 tab Continue Acetaminophen/Diphenhydramine [Tylenol Pm Ex-Strength Caplet] 2 tab PO HS Budesonide-Formot 160-4.5 Mcg [Symbicort 160-4.5 Mcg Inhaler] 2 puff INHALATION RT-DAILY Hydrocodone/Acetaminophen [Jamison 5-325] 1 tab PO Q6H PRN #12 tab PRN Reason: Pain predniSONE [Deltasone] 20 mg PO DAILY #0 amLODIPine [Norvasc] 5 mg PO DAILY #30 tab Discharge Medication List Acetaminophen/Diphenhydramine [Tylenol Pm Ex-Strength Caplet] 2 tab PO HS 04/15/19 [History] Budesonide-Formot 160-4.5 Mcg [Symbicort 160-4.5 Mcg Inhaler] 2 puff INHALATION RT-DAILY 04/15/19 [History] Hydrocodone/Acetaminophen [Jamison 5-325] 1 tab PO Q6H PRN #12 tab 04/17/19 [Rx] amLODIPine [Norvasc] 5 mg PO DAILY #30 tab 05/02/19 [Rx] predniSONE 10 mg PO DIRECTED #27 tab 05/02/19 [Rx] predniSONE [Deltasone] 20 mg PO DAILY #0 05/02/19 [Rx] Follow up Appointment(s)/Referral(s): Product Development Worker, Pts donnell [Other] - 1 Week Chas Chong MD [Primary Care Provider] - 05/08/19 12:15 pm ([place] office.) Activity/Diet/Wound Care/Special Instructions: Enbrel inj with Dr. Chong next week Discharge Disposition: HOME SELF-CARE
== END 2019-05-02 13:32 | disposition home or self-care (01) | DRG 547 ==
LOC: EC 16:51 → 6NMEDSUR 20:22 → 4SSUR 05-01 05:00
PROVIDERS: ADMIT Family Medicine; ATTEND Family Medicine
DX: M06.9 Rheumatoid arthritis, unspecified (principal); M19.021 Primary osteoarthritis, right elbow; F32.9 Major depressive disorder, single episode, unspecified; G89.29 Other chronic pain; I10 Essential (primary) hypertension; M79.7 Fibromyalgia; Z79.51 Long term (current) use of inhaled steroids; Z79.899 Other long term (current) drug therapy; Z82.49 Family history of ischemic heart disease and other diseases of the circulatory system; Z90.710 Acquired absence of both cervix and uterus; Z88.5 Allergy status to narcotic agent; Z88.0 Allergy status to penicillin; Z60.2 Problems related to living alone
CPT/HCPCS: 36415; 80053; 83605; 85025; 85652; 86140; 87040; 96365; 96366; 96375; 99285

== ENCOUNTER 2019-07-27 22:25 | Emergency (ER) | payer MEDICARE ==
[2019-07-27 23:07] LABS: Basophils % (A) 0 %; Eosinophils # (A) 0.2 k/uL (0-0.7); Eosinophils % (A) 3 %; HCT 40.2 % (34.0-46.0); HGB 12.2 gm/dL (11.4-16.0); Hypochromasia Slight; Lymphocytes # (A) 1.6 k/uL (1.0-4.8); Lymphocytes % (A) 19 %; MCH 28.2 pg (25.0-35.0); MCHC 30.4 g/dL (31.0-37.0); MCV 93.1 fL (80.0-100.0); Mean Platelet Volume 8.7; Monocytes # (A) 0.4 k/uL (0-1.0); Monocytes % (A) 4 %; Neutrophils # (A) 6.1 k/uL (1.3-7.7); Neutrophils % (A) 71 %; Platelet Count 318 k/uL (150-450); RBC 4.32 m/uL (3.80-5.40); RDW 15.1 % (11.5-15.5); WBC 8.7 k/uL (3.8-10.6)
[2019-07-27] MEDS ORDERED: methylPREDNISolone SOD SUCCI 125 MG/2 ML VIAL IV STA (23:16)
[2019-07-27 23:17] LABS: ALT 13 U/L (4-34); AST 19 U/L (14-36); African American GFR (CKD) >90 (>60 ml/min/1.73 sqM); Albumin 3.7 g/dL (3.5-5.0); Alkaline Phosphatase 124 U/L (38-126); Anion Gap 8 mmol/L; Blood Urea Nitrogen 15 mg/dL (7-17); Carbon Dioxide 26 mmol/L (22-30); Chloride 105 mmol/L (98-107); Glucose 119 mg/dL (74-99); Non-African American GFR(CKD) 86 (>60 ml/min/1.73 sqM); Potassium 3.5 mmol/L (3.5-5.1); Sodium 139 mmol/L (137-145); Total Bilirubin 0.4 mg/dL (0.2-1.3); Total Protein 7.2 g/dL (6.3-8.2)
--- NOTE | 2019-07-27 23:20 | XR ---
EXAMINATION TYPE: XR elbow complete RT DATE OF EXAM: 07/27/2019 COMPARISON: 04/15/2019 HISTORY: Pain and swelling TECHNIQUE: 3 views FINDINGS: There is significant narrowing of the elbow joint spaces. There is some erosion of the reno cular surfaces of the humerus and ulna. There is elbow joint effusion. I see no fracture nor dislocat ion. IMPRESSION: Significant arthritic change with elbow joint effusion and erosion of articular surfaces that could relate to inflammatory arthritis. No change compared to old exam. No fracture seen.
--- NOTE | 2019-07-27 23:22 | XR ---
EXAMINATION TYPE: XR knee complete bilateral DATE OF EXAM: 07/27/2019 COMPARISON: NONE HISTORY: Knee pain TECHNIQUE: 3 views each knee FINDINGS: There is bilateral knee joint effusion. There is moderately severe narrowing of the medial and lateral joint spaces of both knees. There is bilateral genu valgus mild deformity. There is spurr ing of the femoral and tibial condyles. IMPRESSION: Moderate osteoarthritic changes with joint effusions. No fracture. Joint space narrowing is more severe than the spur formation and inflammatory arthritis should also be considered.
[2019-07-27] MEDS ORDERED: KETOROLAC 30 MG/ML 1 ML VIAL IVP STA (23:23)
--- NOTE | 2019-07-27 23:31 | ED ---
General Adult HPI - General Chief complaint: Recheck/Abnormal Lab/Rx Stated complaint: Knee Pain Time Seen by Provider: 07/27/19 22:35 Source: patient Mode of arrival: ambulatory Limitations: no limitations - History of Present Illness Initial comments: Patient is a 49-year-old female with history of fibromyalgia and rheumatoid arthritis presenting to the emergency department the chief complaint of elbow knee pain. Patient states typically she takes 20 mg of oral prednisone daily, however she has run out of the medication for the last 5 days. States most of the pain is located in her right elbow. States she had limited range of motion due to the severity of her condition. She also reports bilateral knee pain with swelling in the region. States she can feel the "cracking" in her joints. States she takes Jermyn for pain which is prescribed by a pain management physician at the [facility]. Denies any fevers or chills at home. - Related Data Home Medications Medication Instructions Recorded Confirmed Acetaminophen/Diphenhydramine 2 tab PO HS 04/15/19 04/30/19 [Tylenol Pm Ex-Strength Caplet] Budesonide-Formot 160-4.5 Mcg 2 puff INHALATION RT-DAILY 04/15/19 04/30/19 [Symbicort 160-4.5 Mcg Inhaler] Previous Rx's Medication Instructions Recorded Hydrocodone/Acetaminophen [Jermyn 1 tab PO Q6H PRN #12 tab 04/17/19 5-325] amLODIPine [Norvasc] 5 mg PO DAILY #30 tab 05/02/19 predniSONE 10 mg PO DIRECTED #27 tab 05/02/19 predniSONE [Deltasone] 20 mg PO DAILY #0 05/02/19 predniSONE 20 mg PO DAILY #20 tab 07/28/19 predniSONE 20 mg PO DAILY #40 tab 07/28/19 Allergies Allergy/AdvReac Type Severity Reaction Status Date / Time Penicillins Allergy Dyspnea/hiv Verified 07/27/19 22:30 es codeine AdvReac Nausea & Verified 07/27/19 22:30 Vomiting tramadol AdvReac shortness Verified 07/27/19 22:30 of breath Review of Systems ROS Statement: Those systems with pertinent positive or pertinent negative responses have been documented in the HPI. ROS Other: All systems not noted in ROS Statement are negative. 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 2014, shingles 03-19-18, tremors History of Any Multi-Drug Resistant Organisms: None Reported Past Surgical History: Hysterectomy Additional Past Surgical History / Comment(s): COLONOSCOPY, EGD, umbilical hernia repair Past Anesthesia/Blood Transfusion Reactions: No Reported Reaction Past Psychological History: Depression Smoking Status: Never smoker Past Alcohol Use History: Rare Past Drug Use History: None Reported - Past Family History Mother Family Medical History: Hypertension, Renal Disease, Thyroid Disorder Additional Family Medical History / Comment(s): Mother is alive Father Family Medical History: CVA/TIA, Hypertension Additional Family Medical History / Comment(s): Father is alive Sister(s) Family Medical History: Hypertension General Exam Limitations: no limitations General appearance: alert, in no apparent distress Head exam: Present: atraumatic, normocephalic, normal inspection Eye exam: Present: normal appearance, PERRL, EOMI Pupils: Present: normal accommodation ENT exam: Present: normal exam, mucous membranes moist Neck exam: Present: normal inspection, full ROM Respiratory exam: Present: normal lung sounds bilaterally Cardiovascular Exam: Present: regular rate, normal rhythm, normal heart sounds Extremities exam: Present: normal capillary refill, other (+2 dorsalis pedis and posterior tibialis bilaterally. +2 ulnar and radial pulses bilaterally.). Absent: normal inspection (Mild swelling with minimal surrounding erythema at the right elbow. Slightly warm to the touch. Similar signs on bilateral knees.), full ROM (Limited range of motion at the right elbow due to pain. Then range of motion in bilateral lower extremities at the knees.) Back exam: Present: normal inspection, full ROM Neurological exam: Present: alert, oriented X3 Psychiatric exam: Present: normal affect, normal mood Skin exam: Present: warm, dry, intact, normal color Course Vital Signs 07/27/19 07/27/19 07/27/19 22:28 23:38 23:40 Temperature 99.6 F 98.7 F Pulse Rate 73 99 Respiratory 20 18 Rate Blood Pressure 118/81 150/94 O2 Sat by Pulse 98 100 Oximetry 07/28/19 00:48 Temperature Pulse Rate 98 Respiratory 18 Rate Blood Pressure 111/61 O2 Sat by Pulse 99 Oximetry Medical Decision Making - Medical Decision Making Patient is a 49-year-old female with history of rheumatoid arthritis presenting to the emergency department with a chief complaint of elbow and knee pain. Physical examination patient has mild swelling at the right elbow but is unable to fully extended. This appears to be her baseline secondary to the rheumatoid arthritis. She has not taken her daily prednisone dose for the last 5 days. Patient was given 125 mg of Solu-Medrol and analgesia in the ED. No leukocytosis on CBC. Patient does have elevated CRP. CMP is unremarkable. Patient is afebrile. On reevaluation patient reports improvement in his sym ptoms and states she is going to see her primary care this upcoming week. I prescribed the patient a 10 day course of 20 mg of prednisone. Return parameters thoroughly discussed with patient is understanding and agreeable. Case discussed with physician. - Lab Data Result diagrams: 07/27/19 22:55 07/27/19 22:55 Lab Results 07/27/19 07/27/19 Range/Units 22:55 22:55 WBC 8.7 (3.8-10.6) k/uL RBC 4.32 (3.80-5.40) m/uL Hgb 12.2 (11.4-16.0) gm/dL Hct 40.2 (34.0-46.0) % MCV 93.1 (80.0-100.0) fL MCH 28.2 (25.0-35.0) pg MCHC 30.4 L (31.0-37.0) g/dL RDW 15.1 (11.5-15.5) % Plt Count 318 (150-450) k/uL Neutrophils % 71 % Lymphocytes % 19 % Monocytes % 4 % Eosinophils % 3 % Basophils % 0 % Neutrophils # 6.1 (1.3-7.7) k/uL Lymphocytes # 1.6 (1.0-4.8) k/uL Monocytes # 0.4 (0-1.0) k/uL Eosinophils # 0.2 (0-0.7) k/uL Basophils # 0.0 (0-0.2) k/uL Hypochromasia Slight Sodium 139 (137-145) mmol/L Potassium 3.5 (3.5-5.1) mmol/L Chloride 105 (98-107) mmol/L Carbon Dioxide 26 (22-30) mmol/L Anion Gap 8 mmol/L BUN 15 (7-17) mg/dL Creatinine 0.81 (0.52-1.04) mg/dL Est GFR (CKD-EPI)AfAm >90 (>60 ml/min/1.73 sqM) Est GFR (CKD-EPI)NonAf 86 (>60 ml/min/1.73 sqM) Glucose 119 H (74-99) mg/dL Calcium 10.0 (8.4-10.2) mg/dL Total Bilirubin 0.4 (0.2-1.3) mg/dL AST 19 (14-36) U/L ALT 13 (4-34) U/L Alkaline Phosphatase 124 (38-126) U/L C-Reactive Protein 202.0 H (<10.0) mg/L Total Protein 7.2 (6.3-8.2) g/dL Albumin 3.7 (3.5-5.0) g/dL Disposition Clinical Impression: Arthritis pain of elbow, Bilateral knee pain Disposition: HOME SELF-CARE Condition: Good Instructions (If sedation given, give patient instructions): Rheumatoid Arthritis (ED) Additional Instructions: Take prescribed medication as directed. Follow-up with primary care. Return to emergency department if symptoms worsen. Prescriptions: predniSONE 20 mg PO DAILY #40 tab predniSONE 20 mg PO DAILY #20 tab Is patient prescribed a controlled substance at d/c from ED?: No Referrals: Chas Chong MD [Primary Care Provider] - 1-2 days Time of Disposition: 01:46
[2019-07-27 23:38] VITALS: RESP 18
[2019-07-28] MEDS ORDERED: HYDROmorphone 1 MG/ML 1 ML SYRINGE IVP STA (00:40)
[2019-07-28 02:05] VITALS: BP 120/65; PULSE 96; TEMP 98
== END 2019-07-28 02:14 | disposition home or self-care (01) ==
LOC: EC 22:25
DX: M19.021 Primary osteoarthritis, right elbow (principal); M25.561 Pain in right knee; M25.562 Pain in left knee; M06.9 Rheumatoid arthritis, unspecified; Z79.51 Long term (current) use of inhaled steroids; Z88.0 Allergy status to penicillin; Z88.5 Allergy status to narcotic agent
CPT/HCPCS: 36415; 80053; 85025; 86140; 73562; 73080; 99283; 96374; 96375 ×2; J2930; J1885; J1170

== ENCOUNTER 2019-09-02 23:38 | Emergency (ER) | payer MEDICARE ==
[2019-09-03] MEDS ORDERED: KETOROLAC 30 MG/ML 1 ML VIAL IVP STA (00:02)
[2019-09-03] MEDS ORDERED: methylPREDNISolone SOD SUCCI 125 MG/2 ML VIAL IV STA (00:02)
[2019-09-03] MEDS ORDERED: methylPREDNISolone SOD SUCCI 125 MG/2 ML VIAL IM STA (00:06)
[2019-09-03] MEDS ORDERED: KETOROLAC 30 MG/ML 1 ML VIAL IM STA (00:06)
--- NOTE | 2019-09-03 00:56 | US ---
EXAMINATION TYPE: US venous doppler duplex LE BI DATE OF EXAM: 09/03/2019 12:46 AM COMPARISON: US CLINICAL HISTORY: LE pain . Bilateral leg pain x 2 weeks. Hx PE. Clotting disorder. Patient does not take thinners. SIDE PERFORMED: Bilateral TECHNIQUE: The lower extremity deep venous system is examined utilizing real time linear array sonog lisa with graded compression, doppler sonography and color-flow sonography. VESSELS IMAGED: External Iliac Vein (EIV) Common Femoral Vein Deep Femoral Vein Greater Saphenous Vein * Femoral Vein Popliteal Vein Small Saphenous Vein * Proximal Calf Veins (* superficial vessels) Right Leg: No evidence of DVT in veins imaged at this time from prox calf veins to EIV. Left Leg: No evidence of DVT in veins imaged at this time from prox calf veins to EIV. Patient could not tolerate compression of distal femoral vein. Additional color imaging taken at this segment. IMPRESSION: No sign of deep vein thrombosis in both legs.
[2019-09-03] MEDS ORDERED: MORPHINE SULFATE 4 MG/ML SYRINGE IM STA (01:12)
--- NOTE | 2019-09-03 01:16 | ED ---
General Adult HPI - General Chief complaint: Recheck/Abnormal Lab/Rx Stated complaint: Pain all over Time Seen by Provider: 09/02/19 23:50 Source: patient, RN notes reviewed, old records reviewed Mode of arrival: ambulatory Limitations: no limitations - History of Present Illness Initial comments: 49-year-old female patient past medical history of an for arthritis presents to ED for evaluation of bilateral knee pain and right elbow pain. Patient reports that when her rheumatoid arthritis she gets pain in her joints. Denies any chest pain or shortness of breath. Denies any other complaints. Systemic: Pt denies fatigue, fever/chills, rash. Pt denies weakness, night sweats, weight loss. Neuro: Pt denies headache, visual disturbances, syncope or pre-syncope. HEENT: Pt denies ocular discharge or irritation, otalgia, rhinorrhea, pharyngitis or notable lymphadenopathy. Cardiopulmonary: Pt denies chest pain, SOB, heart palpitations, dyspnea on ex ertion. Abdominal/GI: Pt denies abdominal pain, n/v/d. : Pt denies dysuria, burning w/ urination, frequency/urgency. Denies new onset urinary or bowel incontinence. Neuro: Pt denies new onset weakness, paresthesias. - Related Data Home Medications Medication Instructions Recorded Confirmed Acetaminophen/Diphenhydramine 2 tab PO HS 04/15/19 04/30/19 [Tylenol Pm Ex-Strength Caplet] Budesonide-Formot 160-4.5 Mcg 2 puff INHALATION RT-DAILY 04/15/19 04/30/19 [Symbicort 160-4.5 Mcg Inhaler] Previous Rx's Medication Instructions Recorded Hydrocodone/Acetaminophen [[place] 1 tab PO Q6H PRN #12 tab 04/17/19 5-325] amLODIPine [Norvasc] 5 mg PO DAILY #30 tab 05/02/19 predniSONE 10 mg PO DIRECTED #27 tab 05/02/19 predniSONE [Deltasone] 20 mg PO DAILY #0 05/02/19 predniSONE 20 mg PO DAILY #20 tab 07/28/19 predniSONE 20 mg PO DAILY #40 tab 07/28/19 Allergies Allergy/AdvReac Type Severity Reaction Status Date / Time Penicillins Allergy Dyspnea/hiv Verified 09/02/19 23:46 es codeine AdvReac Nausea & Verified 09/02/19 23:46 Vomiting tramadol AdvReac shortness Verified 09/02/19 23:46 of breath Review of Systems ROS Statement: Those systems with pertinent positive or pertinent negative responses have been documented in the HPI. ROS Other: All systems not noted in ROS Statement are negative. 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 2014, shingles 03-19-18, tremors History of Any Multi-Drug Resistant Organisms: None Reported Past Surgical History: Hysterectomy Additional Past Surgical History / Comment(s): COLONOSCOPY, EGD, umbilical hernia repair Past Anesthesia/Blood Transfusion Reactions: No Reported Reaction Past Psychological History: Depression Smoking Status: Never smoker Past Alcohol Use History: Rare Past Drug Use History: None Reported - Past Family History Mother Family Medical History: Hypertension, Renal Disease, Thyroid Disorder Additional Family Medical History / Comment(s): Mother is alive Father Family Medical History: CVA/TIA, Hypertension Additional Family Medical History / Comment(s): Father is alive Sister(s) Family Medical History: Hypertension General Exam - General Exam Comments Initial Comments: Constitutional: NAD, AOX3, Pt has pleasant affect. HEENT: NC/AT, trachea midline, neck supple, no lymphadenopathy. Posterior pharynx non erythematous, without exudates. External ears appear normal, without discharge. Mucous membranes moist. Eyes PERRLA, EOM intact. There is no scleral icterus. No pallor noted. Cardiopulmonary: RRR, no murmurs, rubs or gallops, no JVD noted. Lungs CTAB in anterior and posterior narvaez. No peripheral edema. Abdominal exam: Abdomen soft and non-distended. Abdomen non-tender to palpation in all 4 quadrants. Bowel sounds active in LLQ. No hepatosplenomegaly. No ecchymosis Neuro: CN II-XII grossly intact. No nuchal rigidity. No raccon eyes, no howard sign, no hemotympanum. No cervical spinal tenderness. MSK: Mild edema is noted to anterior knees bilaterally. Range of motion is intact. Neurovascularly intact. Right elbow is mildly swollen and edematous. Neurovascular intact. Range of motion is intact. Distal pulses are intact and equal. No skin changes.. Full active ROM in upper and lower extremities, 5/5 stregnth. Limitations: no limitations Course Vital Signs 09/02/19 09/03/19 23:41 01:29 Temperature 98.6 F 98.7 F Pulse Rate 120 H 18 L Respiratory 20 87 H Rate Blood Pressure 133/92 128/95 O2 Sat by Pulse 96 99 Oximetry Medical Decision Making - Medical Decision Making 49-year-old female patient past medical history of an for arthritis presents to ED for evaluation of bilateral knee pain and right elbow pain. Patient reports that when her rheumatoid arthritis she gets pain in her joints. Denies any chest pain or shortness of breath. Denies any other complaints. Pt VSS, afebrile. Physical exam displayed: Mild edema is noted to anterior knees bilaterally. Range of motion is intact. Neurovascularly intact. Right elbow is mildly swollen and edematous. Neurovascular intact. Range of motion is intact. Distal pulses are intact and equal. No skin changes.. Full active ROM in upper and lower extremities, 5/5 stregnth. Ultrasound was obtained which was negative for DVT. Patient administered 1 dose of steroids, analgesia. Patient is feeling improved. Patient discharged to follow up with primary care jennifer tsang spiral runner tomorrow. Patient also is appointment with orthopedic surgeon tomorrow for her chronic knee pain that she will tend. Case discussed with Dr. Ibanez. Disposition Clinical Impression: Arthralgia Disposition: HOME SELF-CARE Condition: Stable Instructions (If sedation given, give patient instructions): Arthralgia (ED) Additional Instructions: Follow up with PCP and rheumathologist tomorrow. Return to ED if condition worsens in anyway. Is patient prescribed a controlled substance at d/c from ED?: No Referrals: Nilda Chong DO [Primary Care Provider] - 1-2 days
[2019-09-03 01:31] VITALS: BP 128/95; TEMP 98.7
[2019-09-03 04:21] VITALS: PULSE 87; RESP 18
== END 2019-09-03 01:31 | disposition home or self-care (01) ==
LOC: EC 23:38
DX: M25.561 Pain in right knee (principal); M25.562 Pain in left knee; M25.521 Pain in right elbow; M79.604 Pain in right leg; M79.605 Pain in left leg; M79.7 Fibromyalgia; M06.9 Rheumatoid arthritis, unspecified; Z79.899 Other long term (current) drug therapy; Z79.51 Long term (current) use of inhaled steroids; Z88.0 Allergy status to penicillin; Z88.5 Allergy status to narcotic agent
CPT/HCPCS: 99284 ×2; 96372 ×4; 93970; J2270; J2930; J1885

== ENCOUNTER 2020-01-27 13:56 | Inpatient (IN) | payer MEDICARE ==
--- NOTE | 2020-01-27 16:18 | ED ---
GI Bleed HPI - General Chief complaint: GI Bleed Stated complaint: Blood in stool Time Seen by Provider: 01/27/20 15:41 Source: patient, RN notes reviewed Mode of arrival: wheelchair Limitations: no limitations - History of Present Illness Initial comments: This is a 49-year-old female history rheumatoid arthritis who currently only uses NSAIDs intermittently for pain who states she had the onset this morning of dark red and bright red blood per rectum. She denies any abdominal pain she has history gastritis no prior history of lower GI bleeding. She did have some lightheadedness dizziness perhaps some weakness. No fevers chills nausea vomiting sweats no chest pain other modifying factors. She denies any blood thinners. MD complaint: gross hematochezia - Related Data Home Medications Medication Instructions Recorded Confirmed Acetaminophen/Diphenhydramine 2 tab PO HS 04/15/19 01/27/20 [Tylenol Pm Ex-Strength Caplet] HYDROcodone/APAP 7.5-325MG [[place] 1 tab PO Q8H PRN 01/27/20 01/27/20 7.5-325] Ibuprofen [Motrin] 800 mg PO QAM 01/27/20 01/27/20 Previous Rx's Medication Instructions Recorded predniSONE [Deltasone] 20 mg PO DAILY #0 05/02/19 Allergies Allergy/AdvReac Type Severity Reaction Status Date / Time Penicillins Allergy Dyspnea/hiv Verified 01/27/20 17:13 es codeine AdvReac Nausea & Verified 01/27/20 17:13 Vomiting tramadol AdvReac shortness Verified 01/27/20 17:13 of breath Review of Systems ROS Statement: Those systems with pertinent positive or pertinent negative responses have been documented in the HPI. ROS Other: All systems not noted in ROS Statement are negative. 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 2014, shingles 03-19-18, tremors History of Any Multi-Drug Resistant Organisms: None Reported Past Surgical History: Hysterectomy Additional Past Surgical History / Comment(s): COLONOSCOPY, EGD, umbilical hernia repair Past Anesthesia/Blood Transfusion Reactions: No Reported Reaction Past Psychological History: Depression Past Alcohol Use History: Rare Past Drug Use History: None Reported - Past Family History Mother Family Medical History: Hypertension, Renal Disease, Thyroid Disorder Additional Family Medical History / Comment(s): Mother is alive Father Family Medical History: CVA/TIA, Hypertension Additional Family Medical History / Comment(s): Father is alive Sister(s) Family Medical History: Hypertension General Exam - General Exam Comments Initial Comments: This is a well-developed well-nourished awake alert oriented 3 female Limitations: no limitations General appearance: alert, in no apparent distress Head exam: Present: atraumatic, normocephalic, normal inspection Eye exam: Present: normal appearance, PERRL, EOMI. Absent: scleral icterus, conjunctival injection, periorbital swelling ENT exam: Present: normal exam, mucous membranes moist Neck exam: Present: normal inspection. Absent: tenderness, meningismus, lymphadenopathy Respiratory exam: Present: normal lung sounds bilaterally. Absent: respiratory distress, wheezes, rales, rhonchi, stridor Cardiovascular Exam: Present: normal rhythm, tachycardia, normal heart sounds. Absent: systolic murmur, diastolic murmur, rubs, gallop, clicks GI/Abdominal exam: Present: soft, normal bowel sounds. Absent: distended, tenderness, guarding, rebound, rigid Rectal exam: Present: heme (+) stool, other (No masses palpable no evidence of any hemorrhoids or fissures or is evidence of dark burgundy-colored stool.) Extremities exam: Present: normal inspection, full ROM, normal capillary refill. Absent: tenderness, pedal edema, joint swelling, calf tenderness Back exam: Present: normal inspection Neurological exam: Present: alert, oriented X3, CN II-XII intact, other (Patient does demonstrate tremors which she's had before) Psychiatric exam: Present: normal affect, normal mood Skin exam: Present: warm, dry, intact, normal color. Absent: rash Course Vital Signs 01/27/20 01/27/20 14:08 17:40 Temperature 98.5 F Pulse Rate 118 H 112 H Respiratory 16 18 Rate Blood Pressure 120/79 120/78 O2 Sat by Pulse 100 97 Oximetry Medical Decision Making - Medical Decision Making Patient's tests Hemoccult was negative per lab but I did my own it was positive. Patient is demonstrated a drop in hemoglobin she'll be admitted for GI bleed with consult to GI. Serial CBCs. The case is discussed with Dr. Chong - Lab Data Result diagrams: 01/27/20 16:06 01/27/20 16:06 Lab Results 01/27/20 01/27/20 01/27/20 Range/Units 16:06 16:06 16:06 WBC 11.1 H (3.8-10.6) k/uL RBC 3.44 L (3.80-5.40) m/uL Hgb 9.7 L (11.4-16.0) gm/dL Hct 31.7 L (34.0-46.0) % MCV 92.2 (80.0-100.0) fL MCH 28.2 (25.0-35.0) pg MCHC 30.6 L (31.0-37.0) g/dL RDW 15.7 H (11.5-15.5) % Plt Count 284 (150-450) k/uL Neutrophils % 70 % Lymphocytes % 20 % Monocytes % 6 % Eosinophils % 3 % Basophils % 0 % Neutrophils # 7.8 H (1.3-7.7) k/uL Lymphocytes # 2.2 (1.0-4.8) k/uL Monocytes # 0.7 (0-1.0) k/uL Eosinophils # 0.3 (0-0.7) k/uL Basophils # 0.0 (0-0.2) k/uL Hypochromasia Slight PT 9.8 (9.0-12.0) sec INR 0.9 (<1.2) APTT 20.9 L (22.0-30.0) sec Sodium (137-145) mmol/L Potassium (3.5-5.1) mmol/L Chloride (98-107) mmol/L Carbon Dioxide (22-30) mmol/L Anion Gap mmol/L BUN (7-17) mg/dL Creatinine (0.52-1.04) mg/dL Est GFR (CKD-EPI)AfAm (>60 ml/min/1.73 sqM) Est GFR (CKD-EPI)NonAf (>60 ml/min/1.73 sqM) Glucose (74-99) mg/dL Calcium (8.4-10.2) mg/dL Magnesium (1.6-2.3) mg/dL Total Bilirubin (0.2-1.3) mg/dL AST (14-36) U/L ALT (4-34) U/L Alkaline Phosphatase (38-126) U/L Creatine Kinase (30-135) U/L Troponin I (0.000-0.034) ng/mL Total Protein (6.3-8.2) g/dL Albumin (3.5-5.0) g/dL Stool Occult Blood Negative (Negative) Blood Type Blood Type Recheck Bld Type Recheck Status Antibody Screen Spec Expiration Date 01/27/20 01/27/20 01/27/20 Range/Units 16:06 16:06 16:06 WBC (3.8-10.6) k/uL RBC (3.80-5.40) m/uL Hgb (11.4-16.0) gm/dL Hct (34.0-46.0) % MCV (80.0-100.0) fL MCH (25.0-35.0) pg MCHC (31.0-37.0) g/dL RDW (11.5-15.5) % Plt Count (150-450) k/uL Neutrophils % % Lymphocytes % % Monocytes % % Eosinophils % % Basophils % % Neutrophils # (1.3-7.7) k/uL Lymphocytes # (1.0-4.8) k/uL Monocytes # (0-1.0) k/uL Eosinophils # (0-0.7) k/uL Basophils # (0-0.2) k/uL Hypochromasia PT (9.0-12.0) sec INR (<1.2) APTT (22.0-30.0) sec Sodium 137 (137-145) mmol/L Potassium 3.8 (3.5-5.1) mmol/L Chloride 108 H (98-107) mmol/L Carbon Dioxide 23 (22-30) mmol/L Anion Gap 6 mmol/L BUN 13 (7-17) mg/dL Creatinine 0.80 (0.52-1.04) mg/dL Est GFR (CKD-EPI)AfAm >90 (>60 ml/min/1.73 sqM) Est GFR (CKD-EPI)NonAf 87 (>60 ml/min/1.73 sqM) Glucose 143 H (74-99) mg/dL Calcium 9.5 (8.4-10.2) mg/dL Magnesium 2.1 (1.6-2.3) mg/dL Total Bilirubin 0.5 (0.2-1.3) mg/dL AST 21 (14-36) U/L ALT 15 (4-34) U/L Alkaline Phosphatase 199 H (38-126) U/L Creatine Kinase 46 (30-135) U/L Troponin I <0.012 (0.000-0.034) ng/mL Total Protein 6.7 (6.3-8.2) g/dL Albumin 3.8 (3.5-5.0) g/dL Stool Occult Blood (Negative) Blood Type O Positive Blood Type Recheck O Pos Bld Type Recheck Status No Antibody Screen NEGATIVE Spec Expiration Date 01/30/20202305 - Radiology Data Radiology results: image reviewed (Image reviewed no acute findings) Disposition Clinical Impression: GI bleed, Anemia Disposition: ADMITTED IP TO THIS [facility] Condition: Fair Referrals: Chas Chong MD [Primary Care Provider] - 1-2 days
[2020-01-27 16:46] LABS: Basophils % (A) 0 %; Eosinophils # (A) 0.3 k/uL (0-0.7); Eosinophils % (A) 3 %; HCT 31.7 % (34.0-46.0); HGB 9.7 gm/dL (11.4-16.0); Hypochromasia Slight; Lymphocytes # (A) 2.2 k/uL (1.0-4.8); Lymphocytes % (A) 20 %; MCH 28.2 pg (25.0-35.0); MCHC 30.6 g/dL (31.0-37.0); MCV 92.2 fL (80.0-100.0); Mean Platelet Volume 8.1; Monocytes # (A) 0.7 k/uL (0-1.0); Monocytes % (A) 6 %; Neutrophils # (A) 7.8 k/uL (1.3-7.7); Neutrophils % (A) 70 %; Platelet Count 284 k/uL (150-450); RBC 3.44 m/uL (3.80-5.40); RDW 15.7 % (11.5-15.5); WBC 11.1 k/uL (3.8-10.6)
[2020-01-27 16:47] LABS: ALT 15 U/L (4-34); AST 21 U/L (14-36); African American GFR (CKD) >90 (>60 ml/min/1.73 sqM); Albumin 3.8 g/dL (3.5-5.0); Alkaline Phosphatase 199 U/L (38-126); Anion Gap 6 mmol/L; Blood Urea Nitrogen 13 mg/dL (7-17); Calcium 9.5 mg/dL (8.4-10.2); Carbon Dioxide 23 mmol/L (22-30); Chloride 108 mmol/L (98-107); Creatine Kinase 46 U/L (30-135); Glucose 143 mg/dL (74-99); Magnesium 2.1 mg/dL (1.6-2.3); Non-African American GFR(CKD) 87 (>60 ml/min/1.73 sqM); Potassium 3.8 mmol/L (3.5-5.1); Sodium 137 mmol/L (137-145); Total Bilirubin 0.5 mg/dL (0.2-1.3); Total Protein 6.7 g/dL (6.3-8.2)
[2020-01-27 16:57] LABS: INR 0.9 (<1.2); Prothrombin Time 9.8 sec (9.0-12.0)
[2020-01-27 16:59] LABS: Partial Thromboplastin Time 20.9 sec (22.0-30.0)
[2020-01-27] MEDS ORDERED: HYDROmorphone 1 MG/ML 1 ML SYRINGE IVP STA (17:25)
[2020-01-27] MEDS ORDERED: NALOXONE 0.4 MG/ML 1 ML VIAL IV PRN (18:13)
[2020-01-27] MEDS ORDERED: ONDANSETRON 4 MG/2 ML VIAL IVP PRN (18:13)
[2020-01-27] MEDS ORDERED: HYDROmorphone 0.5 MG/0.5 ML SYRINGE IVP PRN (18:13)
--- NOTE | 2020-01-27 18:16 | XR ---
EXAMINATION TYPE: XR KUB DATE OF EXAM: 01/27/2020 COMPARISON: NONE HISTORY: GI bleeding TECHNIQUE: 2 views upright FINDINGS: Bowel gas pattern is normal. There is no sign of intestinal obstruction or pneumoperitoneum . Fecal pattern is normal. There is no evidence of a mass. Lung bases are clear. There are no patholo gic calcifications. IMPRESSION: Nonacute abdomen.
[2020-01-27] MEDS: PANTOPRAZOLE 40 MG/10 ML VIAL IV SCH (19:31)
[2020-01-27] MEDS: SODIUM CHLORIDE 0.9% 1,000 ML IV SCH (19:31)
[2020-01-27 22:42] LABS: HGB 8.7 gm/dL (11.4-16.0); MCH 28.7 pg (25.0-35.0); MCV 92.5 fL (80.0-100.0); Platelet Count 241 k/uL (150-450); RBC 3.02 m/uL (3.80-5.40); RDW 15.4 % (11.5-15.5); WBC 8.9 k/uL (3.8-10.6)
[2020-01-28] MEDS: SODIUM CHLORIDE 0.9% 1,000 ML IV SCH (07:41)
[2020-01-28] MEDS: predniSONE 20 MG TAB PO SCH (08:18)
[2020-01-28 09:54] LABS: Basophils % (A) 1 %; Eosinophils # (A) 0.3 k/uL (0-0.7); Eosinophils % (A) 4 %; HCT 25.6 % (34.0-46.0); HGB 8.1 gm/dL (11.4-16.0); Hypochromasia Moderate; Lymphocytes # (A) 1.5 k/uL (1.0-4.8); Lymphocytes % (A) 23 %; MCHC 31.7 g/dL (31.0-37.0); MCV 94.6 fL (80.0-100.0); Mean Platelet Volume 7.8; Monocytes # (A) 0.4 k/uL (0-1.0); Monocytes % (A) 6 %; Neutrophils # (A) 4.3 k/uL (1.3-7.7); Neutrophils % (A) 65 %; Platelet Count 215 k/uL (150-450); RBC 2.71 m/uL (3.80-5.40); RDW 15.5 % (11.5-15.5); WBC 6.6 k/uL (3.8-10.6)
[2020-01-28] MEDS: PANTOPRAZOLE 40 MG/10 ML VIAL IV SCH ×2 (10:34→22:07)
[2020-01-28] MEDS: IOPAMIDOL CONTRAST (ORAL USE) VIAL PO PRN ×2 (14:49→15:40)
[2020-01-28] MEDS ORDERED: LIDOCAINE 1% (10MG/ML) FOR IV START INTRADERMA PRN (15:47)
[2020-01-28] MEDS ORDERED: PEG 3350-NA SULF,BICARB,CL/KCL 4,000 ML BOTTLE PO ONE (16:50)
[2020-01-28] MEDS ORDERED: bisacodyL 5 MG TABLET.DR PO STA (16:50)
[2020-01-28] MEDS: LACTATED RINGERS 1,000 ML IV SCH (17:00)
--- NOTE | 2020-01-28 17:03 | CT ---
EXAMINATION TYPE: CT abdomen pelvis w con DATE OF EXAM: 01/28/2020 COMPARISON: 03/07/2018 HISTORY: Rectal bleeding. Abdominal pain CT DLP: mGycm Automated exposure control for dose reduction was used. CONTRAST: Performed , patient injected with mL of . The contrast was Isovue 100 mL. There is also oral contrast. FINDINGS: Lung bases are clear of infiltrate. There is no pleural effusion. Heart size is normal. There is no p ericardial effusion. There are 2 cm cyst in the liver. Spleen is intact. Stomach is intact. Gallbladder appears normal. Bile ducts are not dilated. There is no evidence of pancreatic mass. There is no adrenal mass. Kidneys have normal size. There is no hydronephrosis. There is 3 mm calculu s lateral left kidney. Ureters are not dilated. There is no retroperitoneal adenopathy. The bladder d istends smoothly. There is no inguinal hernia. There is no free fluid in the pelvis. There is no sign of a pelvic mass. There are a few sigmoid diverticula. There is no sign of diverticulitis. There is broad-based anterior abdominal wall hernia containing small bowel loops. There is no incarceration. A ppendix is filled with air and appears normal. There is no mesenteric edema. There is no ascites or f ree air. There is no bowel obstruction. The lumbar vertebra have normal alignment. There is no compression fracture. Disc spaces are fairly normal. The bony pelvis is intact. Hip joints appear normal. IMPRESSION: There is some colonic diverticulosis without diverticulitis. Normal appendix. No sign of acute abdome n and pelvis. Nonobstructing left renal calculus. No change compared to old exam.
[2020-01-28 20:57] LABS: Basophils % (A) 0 %; Eosinophils # (A) 0.2 k/uL (0-0.7); Eosinophils % (A) 3 %; HGB 9.5 gm/dL (11.4-16.0); Hypochromasia Slight; Lymphocytes # (A) 1.5 k/uL (1.0-4.8); Lymphocytes % (A) 23 %; MCH 28.4 pg (25.0-35.0); MCHC 30.7 g/dL (31.0-37.0); MCV 92.4 fL (80.0-100.0); Mean Platelet Volume 7.5; Monocytes # (A) 0.4 k/uL (0-1.0); Monocytes % (A) 6 %; Neutrophils # (A) 4.3 k/uL (1.3-7.7); Neutrophils % (A) 66 %; Platelet Count 280 k/uL (150-450); RBC 3.35 m/uL (3.80-5.40); RDW 15.6 % (11.5-15.5); WBC 6.6 k/uL (3.8-10.6)
--- NOTE | 2020-01-28 22:56 | P.HPIM ---
History of Present Illness H&P Date: 01/28/20 Chief Complaint: BRBPR Brooke Cortes is a 49 yo F with PMH of RA on chronic prednisone therapy, fibromyalgia, hx DVT who presented to the ED complaining of rectal bleeding. She complains of multiple episodes of dark red liquid bowel movements the morning of admission. She denies any previous history of GI bleed, although she has had gastritis in the past. She does endorse some lightheadedness prior to admission, denies chest pain or shortness of breath. She denies nausea or vomiting. On presentation she was tachycardic, Hgb 9.7 from baseline 12 a few months ago. CT abd/pelvis no acute process. She did have another bloodly BM in the ED with subsequent drop in Hgb on recheck to 8.7. Review of Systems All systems: negative Constitutional: Reports weakness, Denies chills, Denies fever Eyes: denies blurred vision, denies pain Ears, nose, mouth and throat: Denies headache, Denies sore throat Cardiovascular: Denies chest pain, Denies shortness of breath Respiratory: Denies cough Gastrointestinal: Reports abdominal pain, Reports BRBPR, Reports diarrhea, Reports melena, Denies nausea, Denies vomiting Genitourinary: Denies dysuria, Denies hematuria Musculoskeletal: Denies myalgias Integumentary: Denies pruritus, Denies rash Neurological: Denies numbness, Denies weakness Psychiatric: Denies anxiety, Denies depression Endocrine: Denies fatigue, Denies weight change Past Medical History Past Medical History: Blood Disorder, Fibromyalgia, Rheumatoid Arthritis (RA) Additional Past Medical History / Comment(s): Blood clotting disorder-PE in 2014 pt cannot recall laterality, anemia, body tremors, shingelles in 2018 History of Any Multi-Drug Resistant Organisms: None Reported Past Surgical History: Hysterectomy Additional Past Surgical History / Comment(s): COLONOSCOPY, EGD, umbilical hernia repair Past Anesthesia/Blood Transfusion Reactions: No Reported Reaction Smoking Status: Never smoker - Past Family History Mother Family Medical History: Hypertension, Renal Disease, Thyroid Disorder Additional Family Medical History / Comment(s): Mother is alive Father Family Medical History: CVA/TIA, Hypertension Additional Family Medical History / Comment(s): Father is alive Sister(s) Family Medical History: Hypertension Medications and Allergies Home Medications Medication Instructions Recorded Confirmed Type Acetaminophen/Diphenhydramine 2 tab PO HS 04/15/19 01/27/20 History [Tylenol Pm Ex-Strength Caplet] predniSONE [Deltasone] 20 mg PO DAILY #0 05/02/19 01/27/20 Rx HYDROcodone/APAP 7.5-325MG [[place] 1 tab PO Q8H PRN 01/27/20 01/27/20 History 7.5-325] Ibuprofen [Motrin] 800 mg PO QAM 01/27/20 01/27/20 History Allergies Allergy/AdvReac Type Severity Reaction Status Date / Time Penicillins Allergy Dyspnea/hiv Verified 01/27/20 17:13 es codeine AdvReac Nausea & Verified 01/27/20 17:13 Vomiting tramadol AdvReac shortness Verified 01/27/20 17:13 of breath Physical Exam Vitals: Vital Signs Temp Pulse Pulse Pulse Resp BP BP 01/28/20 21:59 98.7 F 102 H 19 144/91 01/28/20 19:53 98.0 F 94 20 127/89 01/28/20 17:00 98.1 F 98 18 133/89 01/28/20 11:30 99.0 F 104 H 20 142/75 01/28/20 07:44 77 18 126/89 Pulse Ox 01/28/20 21:59 99 01/28/20 19:53 99 01/28/20 17:00 99 01/28/20 11:30 97 01/28/20 07:44 99 Intake and Output 01/28/20 01/28/20 01/28/20 06:59 14:59 22:59 Output Total 0 Balance 0 Output: Urine 0 Other: # Voids 0 # Bowel Movements 1 Weight 81.647 kg General: well nourished, well developed, NAD. Vitals reviewed Eyes: PERRL, EOMI, conjunctiva normal HENT: normocephalic, mucus membranes moist Neck: supple, no JVD Lungs: normal respiratory effort, no wheezes or rales CV: Regular rate and rhythm, no murmur. Peripheral pulses 2+ Abdomen: soft, nondistended, no organomegaly. Mild generalized tenderness, worst epigastric Lymph: no cervical or axillary LAD Skin: warm and dry. Neuro: A&Ox3, normal mood and affect Results CBC & Chem 7: 01/28/20 20:44 01/27/20 16:06 Labs: Abnormal Lab Results - Last 24 Hours (Table) 01/28/20 01/28/20 Range/Units 09:29 20:44 RBC 2.71 L 3.35 L (3.80-5.40) m/uL Hgb 8.1 L 9.5 L (11.4-16.0) gm/dL Hct 25.6 L 31.0 L (34.0-46.0) % MCHC 30.7 L (31.0-37.0) g/dL RDW 15.6 H (11.5-15.5) % Thrombosis Risk Factor Assmnt - Choose All That Apply Any of the Below Risk Factors Present?: Yes Each Factor Represents 1 point: Age 41-60 years, Obesity (BMI >25) Other Risk Factors: Yes Each Risk Factor Represents 3 Points: History of DVT/PE Other congenital or acquired thrombophilia - If yes, enter type in comment: No Thrombosis Risk Factor Assessment Total Risk Factor Score: 5 Thrombosis Risk Factor Assessment Level: High Risk Assessment and Plan (1) Rheumatoid arthritis Current Visit: Yes Status: Acute Code(s): M06.9 - RHEUMATOID ARTHRITIS, UNSPECIFIED SNOMED Code(s): 82679730 (2) Fibromyalgia Current Visit: Yes Status: Acute Code(s): M79.7 - FIBROMYALGIA SNOMED Code(s): 075148266 (3) GI bleed Current Visit: Yes Status: Acute Code(s): K92.2 - GASTROINTESTINAL HEMORRHAGE, UNSPECIFIED SNOMED Code(s): 95414858 (4) Acute blood loss anemia Current Visit: Yes Status: Acute Code(s): D62 - ACUTE POSTHEMORRHAGIC ANEMIA SNOMED Code(s): 783350164 Plan: 1. GI bleed with acute blood loss anemia. GI consulted, start IV protonix. Continue to closely monitor hemoglobin and transfuse for Hgb <7. 2. Rheumatoid arthritis. Continue prednisone at maintenance dose. Continue norco prn
[2020-01-29] MEDS: SODIUM CHLORIDE 0.9% 1,000 ML IV SCH ×3 (04:28→21:07)
--- NOTE | 2020-01-29 09:43 | P.PN ---
Subjective Progress Note Date: 01/29/20 Brooke Cortes is a 49 yo F with PMH of RA on chronic prednisone therapy, fibromyalgia, hx DVT who presented to the ED complaining of rectal bleeding. She complains of multiple episodes of dark red liquid bowel movements the morning of admission. She denies any previous history of GI bleed, although she has had gastritis in the past. She does endorse some lightheadedness prior to admission, denies chest pain or shortness of breath. She denies nausea or vomiting. On presentation she was tachycardic, Hgb 9.7 from baseline 12 a few months ago. CT abd/pelvis no acute process. She did have another bloodly BM in the ED with subsequent drop in Hgb on recheck to 8.7. 01/29/2020 maintained on gentle IV fluid hydration, PPI .no further bleeding reported, no bloody stools. Hemoglobin 9.5, platelets 280. Evaluated by GI .NPO, scheduled for EGD and colonoscopy today. Denies abdominal pain but upon exam, presents with mid epigastric and left lower quadrant tenderness. Denies chest pain, palpitations or shortness of breath. Afebrile, normal WBC Objective - Vital Signs Vital signs: Vital Signs Temp 98.6 F 01/29/20 07:39 Pulse 94 01/29/20 07:39 Resp 18 01/29/20 07:39 BP 136/65 01/29/20 07:39 Pulse Ox 100 01/29/20 03:56 Intake & Output 01/28/20 01/29/20 01/29/20 18:59 06:59 18:59 Output Total 1200 Balance -1200 Weight 81.647 kg 86.7 kg Output: Urine 0 Stool 1200 Other: # Voids 0 # Bowel Movements 1 3 - Exam General: Lying in bed, NAD. Vitals reviewed Eyes: PERRL, EOMI, conjunctiva normal HENT: normocephalic, mucus membranes dry. Neck: supple, no JVD Lungs: normal respiratory effort, no rhonchi, wheezes or rales CV: Regular rate and rhythm, no murmur. Peripheral pulses 2+ Abdomen: soft, nondistended, no organomegaly. Mild midepigastric and left lower quadrant tenderness. Positive bowel sounds. Skin: warm and dry. Neuro: A&Ox3, normal mood and affect - Labs CBC & Chem 7: 01/28/20 20:44 01/27/20 16:06 Labs: Abnormal Lab Results - Last 24 Hours (Table) 01/28/20 01/28/20 Range/Units 09:29 20:44 RBC 2.71 L 3.35 L (3.80-5.40) m/uL Hgb 8.1 L 9.5 L (11.4-16.0) gm/dL Hct 25.6 L 31.0 L (34.0-46.0) % MCHC 30.7 L (31.0-37.0) g/dL RDW 15.6 H (11.5-15.5) % Assessment and Plan Assessment: GI bleed with acute blood loss anemia, EGD and colonoscopy pending. Possible gastritis. Rheumatoid arthritis Fibromyalgia History of blood clotting disorder with PE in 2014 Depression Plan: Continue current medication regime ,monitoring and symptomatic treatment. Maintain PPI. NPO. EGD and colonoscopy pending. Potential discharge today following endoscopy findings, GI final DC recommendations and clearance. The impression and plan of care has been dictated as directed. : I performed a history and examination of this patient, discussed the same with the dictator. I agree with the dictator's note ,documented as a scribe. Any additional findings or plans will be noted.
[2020-01-29] MEDS: predniSONE 20 MG TAB PO SCH (09:44)
[2020-01-29] MEDS: PANTOPRAZOLE 40 MG/10 ML VIAL IV SCH ×2 (09:45→21:06)
[2020-01-29] MEDS: HYDROcodone/APAP 7.5-325MG 1 EACH TAB PO PRN (09:54)
[2020-01-29 10:24] LABS: Basophils % (A) 0 %; Eosinophils # (A) 0.2 k/uL (0-0.7); Eosinophils % (A) 3 %; HCT 25.3 % (34.0-46.0); Hypochromasia Moderate; Lymphocytes # (A) 1.7 k/uL (1.0-4.8); Lymphocytes % (A) 29 %; MCH 29.2 pg (25.0-35.0); MCHC 31.3 g/dL (31.0-37.0); MCV 93.5 fL (80.0-100.0); Mean Platelet Volume 7.7; Monocytes # (A) 0.5 k/uL (0-1.0); Monocytes % (A) 8 %; Neutrophils # (A) 3.5 k/uL (1.3-7.7); Neutrophils % (A) 58 %; Platelet Count 242 k/uL (150-450); RBC 2.71 m/uL (3.80-5.40); RDW 15.7 % (11.5-15.5); WBC 5.9 k/uL (3.8-10.6)
[2020-01-29 10:28] LABS: HGB 7.9 gm/dL (11.4-16.0)
[2020-01-29 10:32] LABS: Reticulocyte % 3.4 % (0.5-2.0)
--- NOTE | 2020-01-29 11:17 | P.CONS ---
History of Present Illness - Reason for Consult Consult date: 01/28/20 GI bleed Requesting physician: Chas Chong - Chief Complaint Blood per rectum - History of Present Illness 49-year-old female with multiple medical comorbidities including rheumatoid arthritis on prednisone therapy, fibromyalgia and history of DVT who presented to the hospital due to complaints of blood per rectum. Patient reports multiple episodes of dark stool with some bright red blood mixed in. This is has been going on for the past 2 days. She describes it as right red blood with clots as well as dark stool. She denies any abdominal pain associated with the episode. She has previously had EGD in 2019 and colonoscopy in the past. She is on prednisone therapy as stated and does take Motrin for pain. Previously she has required iron infusions for anemia. Hemoglobin 8.1 with a decrease from 9.7 previously with WBC 6.6, platelet count 215,000, stool positive for blood with total bilirubin 0.5, phosphatase 199, AST 21 and ALT 15. Review of Systems REVIEW OF SYSTEMS: CONSTITUTIONAL: Denies any fevers, chills, weight change or fatigue. CARDIOVASCULAR: Denies any chest pain, palpitations high or low blood pressures RESPIRATORY: Denies any shortness of breath, hemoptysis or cough. GENITOURINARY: No dysuria or hematuria. MUSCULOSKELETAL: No weakness reported., But she does have chronic pain and weakness in her joint secondary to rheumatoid arthritis SKIN: Denies any new rashes or lesions, jaundice or pallor. PSYCHIATRIC: Denies any depression or anxiety. NEUROLOGY: Denies headache, denies any new focal deficits. EARS/NOSE/THROAT: No recent hearing change, congestion, nasal discharge or sore throat. EYES: No pain in eyes, discharge or change in vision. GASTROINTESTINAL: As per HPI. Past Medical History Past Medical History: Blood Disorder, Fibromyalgia, Rheumatoid Arthritis (RA) Additional Past Medical History / Comment(s): Blood clotting disorder-PE in 2015 pt cannot recall laterality, anemia, body tremors, shingelles in 2018 History of Any Multi-Drug Resistant Organisms: None Reported Past Surgical History: Hysterectomy Additional Past Surgical History / Comment(s): COLONOSCOPY, EGD, umbilical hernia repair Past Anesthesia/Blood Transfusion Reactions: No Reported Reaction Smoking Status: Never smoker - Past Family History Mother Family Medical History: Hypertension, Renal Disease, Thyroid Disorder Additional Family Medical History / Comment(s): Mother is alive Father Family Medical History: CVA/TIA, Hypertension Additional Family Medical History / Comment(s): Father is alive Sister(s) Family Medical History: Hypertension Medications and Allergies Home Medications Medication Instructions Recorded Confirmed Type Acetaminophen/Diphenhydramine 2 tab PO HS 04/15/19 01/27/20 History [Tylenol Pm Ex-Strength Caplet] predniSONE [Deltasone] 20 mg PO DAILY #0 05/02/19 01/27/20 Rx HYDROcodone/APAP 7.5-325MG [[place] 1 tab PO Q8H PRN 01/27/20 01/27/20 History 7.5-325] Ibuprofen [Motrin] 800 mg PO QAM 01/27/20 01/27/20 History Allergies Allergy/AdvReac Type Severity Reaction Status Date / Time Penicillins Allergy Dyspnea/hiv Verified 01/27/20 17:13 es codeine AdvReac Nausea & Verified 01/27/20 17:13 Vomiting tramadol AdvReac shortness Verified 01/27/20 17:13 of breath Physical Exam Vitals: Vital Signs Temp Pulse Pulse Resp BP BP Pulse Ox 01/28/20 11:30 99.0 F 104 H 20 142/75 97 01/28/20 07:44 77 18 126/89 99 01/27/20 19:30 98 18 141/81 97 01/27/20 17:40 112 H 18 120/78 97 Intake and Output 01/28/20 01/28/20 01/28/20 06:59 14:59 22:59 Other: Weight 81.647 kg On physical examination, patient appears comfortable in no apparent distress. HEAD: Normocephalic, atraumatic. EYES: No scleral icterus. No conjunctival injection. MOUTH: No lesions, tongue midline. NECK: Trachea midline, no gross abnormalities. CHEST: Clear to auscultation with no wheezing or rhonchi appreciated. HEART: Regular rate and rhythm. ABDOMEN: Soft, nontender to palpation. Bowel sounds are positive. No organomegaly. No guarding or rigidity. EXTREMITIES: No pedal edema. SKIN: No rashes, no jaundice. NEUROLOGIC: Alert and oriented x3. No focal deficits. Patient has a tremor at baseline. Results CBC & Chem 7: 01/29/20 08:40 01/27/20 16:06 Labs: Abnormal Lab Results - Last 24 Hours (Table) 01/27/20 01/27/20 01/27/20 Range/Units 16:06 16:06 16:06 WBC 11.1 H (3.8-10.6) k/uL RBC 3.44 L (3.80-5.40) m/uL Hgb 9.7 L (11.4-16.0) gm/dL Hct 31.7 L (34.0-46.0) % MCHC 30.6 L (31.0-37.0) g/dL RDW 15.7 H (11.5-15.5) % Neutrophils # 7.8 H (1.3-7.7) k/uL APTT 20.9 L (22.0-30.0) sec Chloride 108 H (98-107) mmol/L Glucose 143 H (74-99) mg/dL Alkaline Phosphatase 199 H (38-126) U/L 01/27/20 01/28/20 Range/Units 22:33 09:29 WBC (3.8-10.6) k/uL RBC 3.02 L 2.71 L (3.80-5.40) m/uL Hgb 8.7 L 8.1 L (11.4-16.0) gm/dL Hct 28.0 L 25.6 L (34.0-46.0) % MCHC (31.0-37.0) g/dL RDW (11.5-15.5) % Neutrophils # (1.3-7.7) k/uL APTT (22.0-30.0) sec Chloride (98-107) mmol/L Glucose (74-99) mg/dL Alkaline Phosphatase (38-126) U/L CT scan - abdomen: report reviewed (Computed tomography scan of the abdomen with findings of diverticulosis without any acute intra-abdominal pathology noted.) Assessment and Plan (1) GI bleed Narrative/Plan: 49-year-old female with multiple medical comorbidities including rheumatoid arthritis on prednisone therapy who came in for evaluation of GI bleed. She describes clots, dark stool and fresh blood per rectum. This is been going on for the past few days. The patient also has an acute fall in her hemoglobin currently at 8.1 with stool testing positive for blood. She previously underwent endoscopy and 2019 with findings of antral gastritis, mild esophagitis and a hiatal hernia. She also previously underwent colonoscopy in 2016 [facility]. Computed tomography scan performed in evaluation was significant for diverticular disease without evidence of any acute intra- abdominal pathology. She does report NSAID use at home. Unclear etiology, possibly related to diverticular bleed, cannot rule out upper GI pathology especially in the setting of chronic prednisone use and NSAID use, differential also includes AVM, severe esophagitis or gastritis or other etiology. Current Visit: Yes Status: Acute Code(s): K92.2 - GASTROINTESTINAL HEMORRHAGE, UNSPECIFIED SNOMED Code(s): 68487475 (2) Acute blood loss anemia Current Visit: Yes Status: Acute Code(s): D62 - ACUTE POSTHEMORRHAGIC ANEMIA SNOMED Code(s): 935577711 Plan: Supportive care Clear liquid diet Nothing by mouth after midnight Avoid NSAID use Continue to monitor hemoglobin and hematocrit and transfuse as needed Continue to monitor for signs and symptoms of GI bleeding Protonix 40 mg twice a day Plan is for EGD and colonoscopy tomorrow for further evaluation Thank you for allowing us to participate in the care of the patient we'll continue to follow
[2020-01-29] MEDS ORDERED: PROPOFOL 10 MG/ML 20 ML VIAL IV ONE (14:03)
[2020-01-29] MEDS ORDERED: LIDOCAINE 1% INJ 10MG/ML (20 ML MDV) ONE (14:03)
[2020-01-29] MEDS ORDERED: IV FLUID CONTINUATION 1,000 ML IV ONE ×2 (14:04)
--- NOTE | 2020-01-29 14:55 | P.PCN ---
Date of Procedure: 01/29/20 Description of Procedure: Brief history: 49-year-old female with multiple medical comorbidities including rheumatoid arthritis on prednisone therapy, fibromyalgia and history of DVT who presented to the hospital due to complaints of blood per rectum. Patient reports multiple episodes of dark stool with some bright red blood mixed in. This is has been going on for the past 2 days. She describes it as right red blood with clots as well as dark stool. She denies any abdominal pain associated with the episode. She has previously had EGD in 2019 and colonoscopy in the past. She is on prednisone therapy as stated and does take Motrin for pain. Previously she has required iron infusions for anemia. Hemoglobin 8.1 with a decrease from 9.7 previously with WBC 6.6, platelet count 215,000, stool positive for blood with total bilirubin 0.5, phosphatase 199, AST 21 and ALT 15. Procedure performed: Esophagogastroduodenoscopy with biopsy Colonoscopy Estimated blood loss: Minimal. Preoperative diagnosis: GI bleed, blood per rectum, anemia of acute blood loss Anesthesia: MAC Procedure: After informed consent was obtained from the patient was brought into the endoscopy unit and IV sedation was administered by anesthesia under continuous monitoring. Initially upper endoscopy was done. The Olympus GF 190 video endoscope was inserted into the mouth and esophagus intubated without any difficulty and was gradually advanced into the stomach and duodenum and carefully examined. The bulb and second part of the duodenum appeared normal, with biopsies taken. The scope was then withdrawn into the stomach adequately insufflated with air and upon careful examination the antrum and body, cardia and fundus appeared normal, except for some mild punctate erythema with some superficial erosions suggestive of moderate gastritis. The scope was then withdrawn into the esophagus. The GE junction was located at 35 cm to the incisors, with a 2 cm hiatal hernia noted. It appeared regular with no erythema erosions or ulcerations. Rest of the esophagus appeared normal. Patient tolerated the procedure well. At this time the patient continued to remain sedation. Initial digital rectal examination was normal. Olympus CF 190 video colonoscope was then inserted into the rectum and gradually advanced to the cecum without any difficulty. Careful examination was performed as the scope was gradually being withdrawn. The prep was excellent. The cecum, ascending colon, transverse colon, descending colon, sigmoid colon and rectum appeared normal, with no old blood or active bleed noted and a large amount of small and large mouth diverticula throughout the entire colon. Retroflexion was performed in the rectum and no lesions were noted. Patient tolerated the procedure well. Impression: 1. No active bleeding or old blood on EGD or colonoscopy. 2. Moderate gastritis. Biopsies of the duodenum in the antrum and body. Small hiatal hernia. 3. Severe pandiverticulosis. Recommendations: Findings of this examination were discussed with the patient as well as the m edical team. Okay to resume diet. Continue Protonix therapy daily. Await pathology from biopsies. Okay to be discharged when medically stable. Suspicion is for symptoms from diverticular bleed.
[2020-01-29 15:23] LABS: Ferritin 25.5 ng/mL (10.0-291.0)
[2020-01-29 15:59] LABS: % Iron Saturation 5.23 (12.00-45.00)
[2020-01-29] MEDS: LACTATED RINGERS 1,000 ML IV SCH (17:31)
[2020-01-30] MEDS: HYDROcodone/APAP 7.5-325MG 1 EACH TAB PO PRN ×2 (00:05→18:35)
[2020-01-30 08:05] LABS: Basophils % (A) 1 %; Eosinophils # (A) 0.1 k/uL (0-0.7); Eosinophils % (A) 3 %; HCT 26.4 % (34.0-46.0); HGB 8.3 gm/dL (11.4-16.0); Hypochromasia Slight; Lymphocytes # (A) 1.7 k/uL (1.0-4.8); Lymphocytes % (A) 36 %; MCH 29.5 pg (25.0-35.0); MCHC 31.3 g/dL (31.0-37.0); MCV 94.1 fL (80.0-100.0); Mean Platelet Volume 7.7; Monocytes # (A) 0.4 k/uL (0-1.0); Monocytes % (A) 7 %; Neutrophils # (A) 2.5 k/uL (1.3-7.7); Neutrophils % (A) 51 %; Platelet Count 276 k/uL (150-450); RDW 15.7 % (11.5-15.5); WBC 4.8 k/uL (3.8-10.6)
[2020-01-30] MEDS: PANTOPRAZOLE 40 MG/10 ML VIAL IV SCH (08:29)
[2020-01-30] MEDS: predniSONE 20 MG TAB PO SCH (08:30)
[2020-01-30] MEDS: SODIUM CHLORIDE 0.9% 1,000 ML IV SCH (08:30)
--- NOTE | 2020-01-30 09:16 | P.DS ---
Providers Date of admission: 01/27/20 18:13 Expected date of discharge: 01/30/20 Attending physician: Chas Chong MD Consults: 01/27/20 18:17 Consult Physician Routine Consulting Provider: Jyotsna Siddiqui Consult Reason/Comments: GI bleed Do you want consulting provider notified?: Yes Primary care physician: Chas Chong MD Hospital Course: Final Diagnoses: GI bleed with acute blood loss anemia, EGD and colonoscopy reported no active bleeding or old blood, moderate gastritis with biopsies obtained, small hiatal hernia and severe pandiverticulosis. Suspect diverticular bleed. Rheumatoid arthritis Fibromyalgia History of blood clotting disorder with PE in 2015 Depression Hospital course:Brooke Cortes is a 49 yo F with PMH of RA on chronic prednisone therapy, fibromyalgia, hx DVT who presented to the ED complaining of rectal bleeding. She complains of multiple episodes of dark red liquid bowel movements the morning of admission. She denies any previous history of GI bleed, although she has had gastritis in the past. She does endorse some lightheadedness prior to admission, denies chest pain or shortness of breath. She denies nausea or vomiting. On presentation she was tachycardic, Hgb 9.7 from baseline 12 a few months ago. CT abd/pelvis no acute process. She did have another bloodly BM in the ED with subsequent drop in Hgb on recheck to 8.7. 01/29/2020 maintained on gentle IV fluid hydration, PPI .no further bleeding reported, no bloody stools. Hemoglobin 9.5, platelets 280. Evaluated by GI .NPO, scheduled for EGD and colonoscopy today. Denies abdominal pain but upon exam, presents with mid epigastric and left lower quadrant tenderness. Denies chest pain, palpitations or shortness of breath. Afebrile, normal WBC Tolerated endoscopy procedures well. EGD and colonoscopy reporting no active bleeding or old blood, moderate gastritis with biopsies obtained, small hiatal hernia and severe pandiverticulosis. Suspect diverticular bleed. Significant clinical improvement. Hemoglobin continues trending up to 8.3. Patient has declined iron supplements and prefers to obtain via red meats/dietary. Cleared by GI for discharge. Patient will be discharged home in a stable condition with guarded prognosis. The impression and plan of care has been dictated as directed. : I performed a history and examination of this patient, discussed the same with the dictator. I agree with the dictator's note ,documented as a scribe. Any additional findings or plans will be noted. Patient Condition at Discharge: Stable Plan - Discharge Summary Discharge Rx Participant: No New Discharge Prescriptions: New Pantoprazole Sodium [Protonix] 40 mg PO DAILY #30 tablet. Continue Acetaminophen/Diphenhydramine [Tylenol Pm Ex-Strength Caplet] 2 tab PO HS predniSONE [Deltasone] 20 mg PO DAILY #0 Ibuprofen [Motrin] 800 mg PO QAM HYDROcodone/APAP 7.5-325MG [[place] 7.5-325] 1 tab PO Q8H PRN PRN Reason: Pain Discharge Medication List Acetaminophen/Diphenhydramine [Tylenol Pm Ex-Strength Caplet] 2 tab PO HS 04/15/19 [History] predniSONE [Deltasone] 20 mg PO DAILY #0 05/02/19 [Rx] HYDROcodone/APAP 7.5-325MG [[place] 7.5-325] 1 tab PO Q8H PRN 01/27/20 [History] Ibuprofen [Motrin] 800 mg PO QAM 01/27/20 [History] Pantoprazole Sodium [Protonix] 40 mg PO DAILY #30 tablet. 01/30/20 [Rx] Follow up Appointment(s)/Referral(s): Chas Chong MD [Primary Care Provider] - 3 Days Thaddeus Michaud MD [STAFF PHYSICIAN] - 2 Weeks Ambulatory/Diagnostic Orders: Complete Blood Count w/diff [LAB.AMB] Time Frame: 3 Days, Location: None Selected Activity/Diet/Wound Care/Special Instructions: Diet: High-fiber
[2020-01-30 11:22] VITALS: PULSE 97
[2020-01-30 15:24] VITALS: BP 137/88; RESP 16; TEMP 98.2
[2020-01-30] MEDS: LACTATED RINGERS 1,000 ML IV SCH (16:42)
== END 2020-01-30 18:42 | disposition home or self-care (01) | DRG 378 ==
LOC: EC 13:56 → 6NMEDSUR 18:13 → 6PED 01-28 09:44 → 3SCARD 01-28 21:45
PROVIDERS: ADMIT Family Medicine; ATTEND Family Medicine
PROC: 0DB98ZX Excision of Duodenum, Via Natural or Artificial Opening Endoscopic, Diagnostic (ICD-10-PCS; principal; 2020-01-29 07:30)
PROC: 0DB78ZX Excision of Stomach, Pylorus, Via Natural or Artificial Opening Endoscopic, Diagnostic (ICD-10-PCS; principal; 2020-01-29 07:30)
PROC: 0DJD8ZZ Inspection of Lower Intestinal Tract, Via Natural or Artificial Opening Endoscopic (ICD-10-PCS; principal; 2020-01-29 07:30)
DX: K57.31 Diverticulosis of large intestine without perforation or abscess with bleeding (principal); D62 Acute posthemorrhagic anemia; F32.9 Major depressive disorder, single episode, unspecified; K29.70 Gastritis, unspecified, without bleeding; K44.9 Diaphragmatic hernia without obstruction or gangrene; M06.9 Rheumatoid arthritis, unspecified; M79.7 Fibromyalgia; Z82.3 Family history of stroke; Z84.1 Family history of disorders of kidney and ureter; Z82.49 Family history of ischemic heart disease and other diseases of the circulatory system; Z79.52 Long term (current) use of systemic steroids; Z86.711 Personal history of pulmonary embolism; Z86.718 Personal history of other venous thrombosis and embolism; Z90.710 Acquired absence of both cervix and uterus; Z88.5 Allergy status to narcotic agent; Z88.0 Allergy status to penicillin
CPT/HCPCS: 36415; 43239; 45378; 74018; 74177; 80053; 80320; 82272; 82550; 82607; 82728; 82746; 83540; 83550; 83735; 84484; 85025; 85027; 85045; 85610; 85730; 86850; 86900; 86901; 88305; 93005; 96374; 99285

== ENCOUNTER → 2022-09-14 | Outpatient (CLI) | payer MEDICARE | END | disposition home or self-care (01) | LOC: LABWHC1 16:15 | PROVIDERS: ATTEND Family Medicine | DX: R73.01 Impaired fasting glucose (principal) | CPT/HCPCS: 36415; 83036 ==

== ENCOUNTER → 2023-01-10 | Outpatient (CLI) | payer MEDICARE ==
[2023-01-10 17:09] LABS: ALT 17 U/L (4-34); African American GFR (CKD) >90 (>60 ml/min/1.73 sqM); Albumin 4.2 g/dL (3.5-5.0); Albumin/Globulin Ratio 1.3; Alkaline Phosphatase 104 U/L (38-126); Anion Gap 11 mmol/L; Blood Urea Nitrogen 15 mg/dL (7-17); Calcium 9.7 mg/dL (8.4-10.2); Carbon Dioxide 21 mmol/L (22-30); Chloride 109 mmol/L (98-107); Globulin 3.3 g/dL; Glucose 94 mg/dL (74-99); Non-African American GFR(CKD) >90 (>60 ml/min/1.73 sqM); Sodium 141 mmol/L (137-145); Total Bilirubin 0.6 mg/dL (0.2-1.3); Total Protein 7.5 g/dL (6.3-8.2)
[2023-01-10 17:11] LABS: AST 24 U/L (14-36); Potassium 4.3 mmol/L (3.5-5.1)
[2023-01-11 02:59] LABS: HCT 43.7 % (37.2-46.3); HGB 13.8 d/dL (12.0-15.0); MCH 30.1 pg (27.0-32.0); MCHC 31.6 d/dL (32.0-37.0); MCV 95.2 FL (80.0-97.0); Mean Platelet Volume 11.3 FL (9.5-12.2); NRBC Per 100 WBC 0 X 10*3/uL (0.00-0.01); Platelet Count 412 X 10*3/uL (140-440); RBC 4.59 X 10*6/uL (4.10-5.20); RDW 14.3 % (11.5-14.5); WBC 5.18 X 10*3/uL (4.50-10.00)
[2023-01-11 04:29] LABS: Chol/HDL Ratio 2.17 Ratio; LDL Cholesterol,Calculated 99.4 mg/dL (0.0-131.0)
== END | disposition home or self-care (01) ==
LOC: LABWHC1 16:12
PROVIDERS: ATTEND Family Medicine
DX: E11.65 Type 2 diabetes mellitus with hyperglycemia (principal); R79.89 Other specified abnormal findings of blood chemistry
CPT/HCPCS: 36415; 80053; 80061; 82306; 83036; 84443; 85027